=== PATIENT | female | born 1955 | race Caucasian/White ===

== ENCOUNTER 2019-09-25 06:47 | Emergency (ER) | payer OTHER, SELFPAY ==
--- NOTE | ~2019-09-25 | CT_ITS ---
EXAMINATION: CT abdomen pelvis w con DATE: 09/25/2019 07:51 INDICATION: Generalized abdominal pain. TECHNIQUE: Computed tomography (CT) of the abdomen and pelvis was performed with 100 mL Omnipaque 350 intravenous contrast. Automated exposure control and iterative reconstruction technique were employe d. The dose-length product was 1473.36 mGy-cm. COMPARISON: CT abdomen and pelvis 10/16/2017 FINDINGS: The visualized portions of the lung bases demonstrate mild atelectasis. No pleural effusion . The heart size is normal. No pericardial effusion. Calcifications in the liver consistent with old granulomatous disease. There are gallstones in the gallbladder, which is normal in size. The spleen, pancreas, adrenal glands, and kidneys are normal. There is diverticulosis of the colon without eviden ce of diverticulitis. There are no dilated loops of bowel. The appendix is not visualized. There is t race pelvic ascites. A mesenteric node measures 10 x 20 mm. There is mild thoracolumbar spondylosis. IMPRESSION: 1. Cholelithiasis. No evidence of acute cholecystitis. 2. Mildly enlarged mesenteric lymph node, likely reactive. Reviewed, dictated and finalized at location A. . PRICING ANALYST
--- NOTE | 2019-09-25 06:49 | ED.GENADULT ---
HPI - General Adult General Chief complaint: Urogenital-Female Stated complaint: uti Time Seen by Provider: 09/25/19 06:48 Source: patient Mode of arrival: ambulatory Limitations: no limitations History of Present Illness HPI narrative: Patient is a 64-year-old female who presents for evaluation of frequency, dysuria and urgency. Patient states she has had symptoms since Tuesday. She reports nausea, no vomiting. No fever, chills, chest pain or shortness of breath. No lightheadedness or dizziness. Patient reports numerous episodes of watery diarrhea. No blood present in the stool. No mucus. No syncope. No history of ulcer or GI bleed in the past. Patient reports a dull, aching headache. No acute onset of headache or thunderclap sensation. No numbness or weakness. Patient states all her symptoms started after eating at [employer] on Tuesday, patient has continued to have watery diarrhea since that time. Related Data Home Medications Medication Instructions Recorded Confirmed fluticasone propionate INTRANASAL 05/25/19 08/21/19 lisinopril 20 mg PO DAILY 05/25/19 08/21/19 melatonin 1 PO HS 05/25/19 08/21/19 albuterol sulfate 90 mcg/actuation 1 puff INHALATION Q4H PRN 06/11/19 08/21/19 aerosol inhaler ibuprofen 200 mg capsule 200 mg PO Q6H PRN 08/20/19 08/21/19 blood sugar diagnostic #10 each 08/21/19 08/21/19 blood-glucose meter #1 each 08/21/19 08/21/19 insulin aspart U-100 100 unit/mL 4 - 8 unit SUB-Q BID ml 08/21/19 08/21/19 (3 mL) subcutaneous pen insulin detemir U-100 100 unit/mL 26 - 28 unit SUBCUT QPM ml 08/21/19 08/21/19 (3 mL) subcutaneous pen lancets #50 each 08/21/19 08/21/19 pen needle, diabetic 31 gauge x #1,200 each 08/21/19 08/21/19 5/16 Dahiana's Leg Cramps 09/25/19 fluticasone furoate [Arnuity INHALATION 09/25/19 Ellipta] Allergies Allergy/AdvReac Type Severity Reaction Status Date / Time hydrocortisone Allergy Mild TEARS Unverified 09/25/19 07:03 STOMACH UP poison yemi extract Allergy Unknown Unknown Verified 09/25/19 07:03 povidone Allergy Unknown Unknown Verified 09/25/19 07:03 povidone-iodine Allergy Unknown RASH Unverified 09/25/19 07:03 soap Allergy Unknown Unknown Verified 09/25/19 07:03 Sulfa (Sulfonamide Allergy Unknown Unknown Verified 09/25/19 07:03 Antibiotics) sulfanilamide Allergy Unknown Unknown Verified 09/25/19 07:03 talc Allergy Unknown Unknown Verified 09/25/19 07:03 Review of Systems Review of Systems: Narrative: CONSTITUTIONAL: Denies fever, chills, or sweats. EYES: Denies visual changes ENT: Denies congestion, sore throat, or otalgia. CARDIOVASCULAR: Denies chest pain, palpitations, or edema. RESPIRATORY: Denies cough or dyspnea. GASTROINTESTINAL: Reports suprapubic pain, nausea, denies vomiting, reports diarrhea GENITOURINARY: Reports dysuria, urgency and frequency SKIN: Denies rash or itching. MUSCULOSKELETAL: Denies back pain, joint pain, or myalgia. NEUROLOGIC: Reports headache, denies numbness or weakness PSYCHIATRIC: Reports anxiety PMFSH Past Medical History Medical History Asthma Diabetes Hyperlipidemia Hypertension Hypothyroid Surgical History Surgical History History of hand surgery Multiple Family History Family History Father Hypertension Malignant neoplasm of prostate Family history of obesity Family history of cataracts Family history of congestive heart failure Mother Family history of hypothyroidism Family history of heart disease in male family member before age 55 Family history of obesity Family history of lung disease Family history of hearing loss Grandparent Family history of thyroid disease Family history of obesity Cerebrovascular accident Family history of arthritis Family history of congestive heart failure Diabetes mellitu
[2019-09-25 06:57] VITALS: BP 187/88; PULSE 69; RESP 18; TEMP 36.2; O2SAT 97
[2019-09-25 07:18] LABS: Basophils Absolute Auto 0.1 K/mm3 (0.0-0.1); Basophils Percent Auto 0.3 % (0.2-1.2); Eosinophils Absolute Auto 5.7 K/mm3 (0-0.3); Eosinophils Percent Auto 30.3 % (0-4.4); Hemoglobin 12.9 g/dL (12.0-15.0); Immature Granulocyte Absolute 0.22 K/mm3 (0.00-0.031); Immature Granulocyte Percent A 1.2 % (0-0.5); Lymphocytes Absolute Auto 4.06 K/mm3 (0.9-3.2); Lymphocytes Percent Auto 21.8 % (18.3-44.2); Mean Corpuscular HGB Conc 33.1 g/dl (32-36); Mean Corpuscular Hemoglobin 29.4 pg (26-34); Mean Corpuscular Volume 88.8 fl (80-100); Mean Platelet Volume 12.7 fl (7.4-10.4); Monocytes Absolute Auto 0.6 K/mm3 (0.1-0.6); Monocytes Percent Auto 3.2 % (2.6-8.5); Neutrophils Absolute Auto 8.1 K/mm3 (1.3-6.7); Neutrophils Percent Auto 43.2 % (45.5-73.1); Platelet Count Result 216 k/mm3 (150-375); Red Blood Count 4.39 M/mm3 (4.2-5.4); Red Cell Distribution Width 13.3 % (11.5-14.5); White Blood Count 18.7 K/mm3 (4.5-10.0)
[2019-09-25 07:26] LABS: Add Urine Microscopic? YES; Appearance Urine Clear (Clear); Bacteria Urine Trace /hpf; Bilirubin Urine Negative (Negative); Blood Urine Negative (Negative); Color Urine Colorless (Yellow); Glucose Urine UA Negative (Negative); Ketones Urine Negative (Negative); Leukocyte Esterase Ur 1+ LEU/UL (Negative); Mucus Urine Rare /lpf; Nitrate Urine Negative (Negative); Protein Urine Negative (Negative); RBC Urine 0-2 /hpf (0-2); Squamous Epithelial Cell Urine Occasional /hpf (Few); Urobilinogen Urine Negative mg/dL (<2.0); WBC Urine 0-3 /hpf
[2019-09-25 07:29] LABS: Alanine Aminotransferase 15 U/L (4-35); Albumin Level 3.8 g/dL (3.5-5.1); Alkaline Phosphatase 77 U/L (38-126); Aspartate Amino Transferase 23 U/L (14-36); Bilirubin,Total 0.4 mg/dL (0.2-1.3); Blood Urea Nitrogen 12 mg/dL (7-17); Calcium 8.5 mg/dL (8.4-10.2); Carbon Dioxide 33 mmol/L (22-30); Chloride 97 mmol/L (98-107); Estimated Glomerular Filt Rate 41; Glucose 109 mg/dL (65-105); Lipase 41 U/L (23-300); Potassium 3.4 mmol/L (3.4-5.0); Sodium 136 mmol/L (137-145)
[2019-09-25 07:29] LABS: Specific Grav Ur 1.004 (1.001-1.035)
[2019-09-25] MEDS: SODIUM CHLORIDE 0.9% IV 1,000 ML 999 ML IV CONT (07:29)
[2019-09-25] MEDS: MORPHINE SULFATE 4 MG/ML INJ 2 MG IV PUSH (07:30)
[2019-09-25] MEDS: ONDANSETRON INJ 4 MG/2 ML VIAL IV PUSH (07:30)
[2019-09-25 09:20] VITALS: BP 152/73; PULSE 70; RESP 16; O2SAT 99
== END 2019-09-25 09:21 | disposition home or self-care (01) ==
PROVIDERS: Emergency Provider Emergency Medicine; PCP Family Medicine
DX: K52.9 Noninfective gastroenteritis and colitis, unspecified (principal); J45.909 Unspecified asthma, uncomplicated; E11.9 Type 2 diabetes mellitus without complications; Z79.4 Long term (current) use of insulin; E78.5 Hyperlipidemia, unspecified; I10 Essential (primary) hypertension; E03.9 Hypothyroidism, unspecified; K80.20 Calculus of gallbladder without cholecystitis without obstruction
CPT/HCPCS: 36415; 74177; 80053; 81001; 83690; 85025; 96361; 96374; 96375; 99284; J0131; J2270; J2405; J7030; Q9967

== ENCOUNTER 2020-07-12 11:11 | Emergency (ER) | payer OTHER, SELFPAY ==
--- NOTE | ~2020-07-12 | XR_ITS ---
EXAMINATION: XR chest 2V DATE: 07/12/2020 11:44 INDICATION: Cough, shortness of breath, and chest pain. TECHNIQUE: Frontal and lateral views of the chest were obtained. COMPARISON: Chest 2 views 01/22/2019 FINDINGS: There are airspace opacities at right lung base. There is a small right pleural effusion. A calcified left lung nodule is consistent with old granulomatous disease. No pneumothorax. The heart size is normal. Cholelithiasis is noted. IMPRESSION: 1. Airspace opacities at right lung base, consistent with pneumonia. 2. Small right pleural effusion. Reviewed, dictated and finalized at location A. CTOR AUTOMOTIVE
[2020-07-12 11:17] VITALS: BP 148/58; PULSE 89; RESP 28; TEMP 36.8; O2SAT 97
--- NOTE | 2020-07-12 11:51 | ED.GENADULT ---
HPI - General Adult General Chief complaint: Skin/Abscess/Foreign Body Stated complaint: SICK Time Seen by Provider: 07/12/20 11:49 Source: patient and RN notes reviewed Mode of arrival: ambulatory Limitations: no limitations History of Present Illness HPI narrative: 64-year-old female presents with complains of upper respiratory symptoms, facial rash, fever, fatigue, dry cough, and chest wall tenderness for the past 3 days. Mar[place]osa reports chest pain is under RT breast. Ibuprofen without relief last this morning 08:45am. Intermittent dry cough without chest congestion. No rhinorrhea or nasal congestion. Denies sore throat. No drooling, neck or throat swelling. No cardiac chest pain, wheezing, or shortness of breath. Exacerbation factor consist of coughing. Denies nausea, vomiting, and abdominal pain. Tolerating liquids well. Remains active. The patient reports she have not been diagnosed with COVID-19. Patient reports she was tested for COVID-19 on 07/10/20 after having sickness for 1 day with a NEGATIVE result. The patient reports she is not waiting for the results of a COVID-19 lab test. The patient reports she do not have fever, chills, weakness, or fatigue. The patient reports she do not have a worsening cough or shortness of breath. Denies chest pain. The patient reports she do not have any rhinorrhea, loss of taste, and diarrhea. Denies recent traveling. Denies concerns for COVID-19 or exposures been home with limited outdoor exposure except for essential household needs, work, and return home. At this time, patient is not suspected of having COVID-19. Some parts of this dictation were generated by voice recognition software and may contain typographical and/or grammatical inaccuracies. Related Data Home Medications Medication Instructions Recorded Confirmed fluticasone propionate 1 spray INTRANASAL DAILY 05/25/19 07/10/20 melatonin 10 mg PO HS 05/25/19 07/12/20 albuterol sulfate 90 mcg/actuation 1 puff INHALATION Q4H PRN 06/11/19 07/12/20 aerosol inhaler ibuprofen 200 mg capsule 200 mg PO Q6H PRN 08/20/19 07/12/20 blood-glucose meter #1 each 08/21/19 07/10/20 Dahiana's Leg Cramps 09/25/19 07/10/20 fluticasone furoate [Arnuity 1 inh INHALATION DAILY 09/25/19 07/10/20 Ellipta] aspirin 81 mg tablet,delayed 81 mg PO DAILY 04/14/20 07/12/20 release aspirin-caffeine 500 mg-32.5 mg 1 tablet PO ONCE 04/14/20 07/10/20 tablet Allergies Allergy/AdvReac Type Severity Reaction Status Date / Time hydrocortisone Allergy Mild TEARS Verified 07/12/20 11:26 STOMACH UP poison yemi extract Allergy Unknown Unknown Verified 07/12/20 11:26 povidone Allergy Unknown Unknown Verified 07/12/20 11:26 povidone-iodine Allergy Unknown RASH Verified 07/12/20 11:26 soap Allergy Unknown Unknown Verified 07/12/20 11:26 Sulfa (Sulfonamide Allergy Unknown Unknown Verified 07/12/20 11:26 Antibiotics) sulfanilamide Allergy Unknown Unknown Verified 07/12/20 11:26 talc Allergy Unknown Unknown Verified 07/12/20 11:26 lactose AdvReac Mild Unknown Verified 07/12/20 11:26 Review of Systems Review of Systems: Narrative: CONSTITUTIONAL: Denies chills, sweats. Complains of fever, fatigue. EYES: Denies visual changes, redness, discharge. ENT: Denies rhinorrhea, congestion sore throat, otalgia. CARDIOVASCULAR: Denies chest pain, palpitations, edema. RESPIRATORY: Denies dyspnea, wheezing. Complains of dry cough. GASTROINTESTINAL: Denies abdominal pain, nausea, vomiting, diarrhea. SKIN: Denies itching. Complains of rash to face. MUSCULOSKELETAL: Denies acute back pain, joint pain, myalgia. Complains of RT chest wall tenderness. NEUROLOGIC: Denies numbness or focal weakness. PSYCHIATRIC: Denies anxiety or depression. All systems reviewed & are unremarkable except as noted in HPI and below. [facility] Past Medical History Medical History Asthma Diabetes GERD wit
== END 2020-07-12 12:25 | disposition home or self-care (01) ==
PROVIDERS: Emergency Provider Nurse Practitioner Family; PCP Family Medicine
DX: J18.9 Pneumonia, unspecified organism (principal); Z20.828 Contact with and (suspected) exposure to other viral communicable diseases; J45.909 Unspecified asthma, uncomplicated; E11.9 Type 2 diabetes mellitus without complications; K21.9 Gastro-esophageal reflux disease without esophagitis; E78.5 Hyperlipidemia, unspecified; I10 Essential (primary) hypertension; E03.9 Hypothyroidism, unspecified
CPT/HCPCS: 71046; 99213; G0463

== ENCOUNTER 2020-07-14 07:04 | Outpatient (NON) | payer OTHER, SELFPAY ==
[2020-07-14 22:01] LABS: SARS-CoV-2 RNA PCR Negative
== END 2020-07-14 07:05 ==
LOC: ANHCOVIDDT 07:08
PROVIDERS: PCP Family Medicine; Visit Provider Nurse Practitioner Family
DX: J18.9 Pneumonia, unspecified organism (principal); Z20.828 Contact with and (suspected) exposure to other viral communicable diseases
CPT/HCPCS: 87635; C9803; U0003

== ENCOUNTER 2020-07-18 17:39 | Emergency (ER) | payer OTHER, SELFPAY ==
[2020-07-18] VITALS (25 sets, daily range): BP systolic 159–186; BP diastolic 71–92; PULSE 92–103; RESP 14–35; TEMP 37.6; O2SAT 99
--- NOTE | ~2020-07-18 | XR_ITS ---
XR chest 1V 07/18/2020 18:26 Indication: Shortness of breath. Pneumonia. Procedure: AP view of the chest Comparison: Comparison to multiple prior studies sequentially, with oldest reviewed study dated 07/2018. Findings: There is been progression of airspace disease in the right mid and lower lung, consistent w ith pneumonia. There is right pleural effusion. Cardiomegaly. Left lung is clear. No acute osseous ab normality. Impression: 1: Progression of pneumonia involving the right mid and lower lung with adjacent pleural effusion. Reviewed, dictated and finalized at location A. SPORTATION BROKER Impression: 1: Progression of pneumonia involving the right mid and lower lung with adjacen t pleural effusion.
--- NOTE | ~2020-07-18 | CT_ITS ---
EXAMINATION: CT abdomen pelvis wo con DATE: 07/18/2020 18:16 INDICATION: Abdominal pain TECHNIQUE: Computed tomography (CT) of the abdomen and pelvis was performed without intravenous contr ast. The dose-length product was 1429.06 mGy-cm. Automated exposure control and iterative reconstruct ion technique were employed. COMPARISON: CT dated 09/25/2019 and chest x-ray dated 07/12/2020 FINDINGS: There are is right middle and lower lobe airspace consolidation with loculated right pleura l effusion.. Heart size is normal. There are gallstones. The liver, spleen, pancreas, adrenal glands and left kidney are unremarkable. T here is a 1.5 cm hyperdense lesion of the right kidney measuring 64 Hounsfield units, likely hyperden se cyst. Recommend correlation with ultrasound for further assessment. Nonobstructive bowel gas patte rn. Colonic diverticulosis without evidence for diverticulitis. There is an accessory splenule. No fr ee air or free fluid. Mild thoracolumbar spondylosis. IMPRESSION: 1. Right middle and lower lobe airspace consolidation, consistent with pneumonia. 2: Loculated right pleural effusion. 3: Cholelithiasis. No secondary findings to suggest acute cholecystitis. 4: Right renal hyperdense mass measuring 1.5 cm, likely benign hyperdense cyst, although ultrasound r ecommended for further assessment. Reviewed, dictated and finalized at location A. TABLE GROWER IMPRESSION: 1. Right middle and lower lobe airspace consolidation, consistent with pneumoni a. 2: Loculated right pleural effusion. 3: Cholelithiasis. No secondary findings to suggest acute cholecystitis. 4: Right renal hyperdense mass measuring 1.5 cm, likely benign hyperdense cyst, although ultrasound recommended for further assessment.
--- NOTE | 2020-07-18 18:02 | ED.NAVMDI ---
HPI - Nausea/Vomiting/Diarrhea General Chief complaint: Shortness of Breath/Dyspnea Stated complaint: recent pneumonia Time Seen by Provider: 07/18/20 17:50 History of Present Illness HPI Narrative: 64 yo female w/ h/o DM, htn, hypothyroidism, asthma presents to the ED for multiple complaints. She first started to feel sick more than 1 week ago. She is not able to tell me what symptoms she was having at that time. She had a telavisit with her PCP on 07/10. At that time she was diagnosed with Flu-like symptoms. She was told to get a COvid test and treated for a yeast infection. The covid test was negative. She then went to urgent care on 07/12 and had an x-ray showing pneumonia and once again tested negative for COVID. She was started on Augmentin and then started having nausea, vomiting, and diarrhea. She does report intermittent SOB. Related Data Home Medications Medication Instructions Recorded Confirmed fluticasone propionate 1 spray INTRANASAL DAILY 05/25/19 07/10/20 melatonin 10 mg PO HS 05/25/19 07/12/20 albuterol sulfate 90 mcg/actuation 1 puff INHALATION Q4H PRN 06/11/19 07/12/20 aerosol inhaler ibuprofen 200 mg capsule 200 mg PO Q6H PRN 08/20/19 07/12/20 blood-glucose meter #1 each 08/21/19 07/10/20 Dahiana's Leg Cramps 09/25/19 07/10/20 fluticasone furoate [Arnuity 1 inh INHALATION DAILY 09/25/19 07/10/20 Ellipta] aspirin 81 mg tablet,delayed 81 mg PO DAILY 04/14/20 07/12/20 release aspirin-caffeine 500 mg-32.5 mg 1 tablet PO ONCE 04/14/20 07/10/20 tablet Allergies Allergy/AdvReac Type Severity Reaction Status Date / Time hydrocortisone Allergy Mild TEARS Verified 07/12/20 11:26 STOMACH UP poison yemi extract Allergy Unknown Unknown Verified 07/12/20 11:26 povidone Allergy Unknown Unknown Verified 07/12/20 11:26 povidone-iodine Allergy Unknown RASH Verified 07/12/20 11:26 soap Allergy Unknown Unknown Verified 07/12/20 11:26 Sulfa (Sulfonamide Allergy Unknown Unknown Verified 12/19/20 11:26 Antibiotics) sulfanilamide Allergy Unknown Unknown Verified 07/12/20 11:26 talc Allergy Unknown Unknown Verified 07/12/20 11:26 lactose AdvReac Mild Unknown Verified 07/12/20 11:26 Review of Systems Review of Systems: All systems reviewed & are unremarkable except as noted in HPI and below Constitutional: Constitutional: Reports fatigue, Reports fever(s) and Reports weakness ENT: Denies sore throat Cardiovascular: Cardiovascular: Denies chest pain Respiratory: Respiratory: Reports cough and Reports dyspnea Gastrointestinal: Gastrointestinal: Reports abdominal pain, Reports diarrhea, Reports nausea and Reports vomiting Genitourinary: Genitourinary: Denies dysuria Musculoskeletal: Musculoskeletal: Reports back pain Neurologic: Denies confusion and Reports weakness PMFSH Past Medical History Medical History Asthma Diabetes GERD without esophagitis Hyperlipidemia Hypertension Hypothyroid Surgical History Surgical History History of hand surgery Multiple Family History Family History Father Hypertension Malignant neoplasm of prostate Family history of obesity Family history of cataracts Family history of congestive heart failure Mother Family history of hypothyroidism Family history of heart disease in male family member before age 55 Family history of obesity Family history of lung disease Family history of hearing loss Grandparent Family history of thyroid disease Family history of obesity Cerebrovascular accident Family history of arthritis Family history of congestive heart failure Diabetes mellitus Sibling Family history of malignant neoplasm of brain Family history of malignant neoplasm of kidney Family history of heart disease in male family member before age 55 Other Family history of car
[2020-07-18] MEDS: ONDANSETRON INJ 4 MG/2 ML VIAL IV PUSH (18:30)
[2020-07-18] MEDS: SODIUM CHLORIDE 0.9% IV 1,000 ML 999 ML IV CONT (18:30)
[2020-07-18 18:44] LABS: Hematocrit 33.3 % (37.0-47.0); Hemoglobin 11.6 g/dL (12.0-15.0); Mean Corpuscular HGB Conc 34.8 g/dl (32-36); Mean Corpuscular Hemoglobin 30.2 pg (26-34); Mean Corpuscular Volume 86.7 fl (80-100); Mean Platelet Volume 10.8 fl (7.4-10.4); Platelet Count Result 421 k/mm3 (150-375); Red Blood Count 3.84 M/mm3 (4.2-5.4); Red Cell Distribution Width 13.9 % (11.5-14.5); White Blood Count 21.7 K/mm3 (4.5-10.0)
[2020-07-18 18:53] LABS: INR 1.3; Prothrombin Time 17.1 Seconds (11.1-14.7)
[2020-07-18 18:56] LABS: Alanine Aminotransferase 29 U/L (4-35); Albumin Level 3.5 g/dL (3.5-5.1); Alkaline Phosphatase 270 U/L (38-126); Anion Gap 11 mmol/L (8-16); Aspartate Amino Transferase 44 U/L (14-36); Band Neutrophils Percent 5 % (0-6); Blood Urea Nitrogen 22 mg/dL (7-17); Calcium 9.7 mg/dL (8.4-10.2); Carbon Dioxide 31 mmol/L (22-30); Chloride 93 mmol/L (98-107); Estimated CRCL calculation 41 ml/min; Estimated Glomerular Filt Rate 38; Glucose 129 mg/dL (65-105); Lactic Acid Reflex 1.2 mmol/L (0.7-2.1); Lipase 46 U/L (23-300); Lymphocytes Absolute Manual 1.73 K/mm3 (1.1-4.5); Lymphocytes Percent Manual 8 % (18-44); Metamyelocytes Percent 3 %; Monocytes Absolute Manual 0.65 K/mm3 (0.1-0.90); Monocytes Percent Manual 3 % (3-9); Myelocytes Percent 1 %; Neutrophils Absolute Manual 18.44 K/mm3 (1.7-7.2); Neutrophils Percent Manual 80 % (46-73); Potassium 2.9 mmol/L (3.4-5.0); Sodium 135 mmol/L (137-145); Total Cells Counted 100
[2020-07-18 18:57] LABS: Platelet Estimate Increased (Adequate); Target Cells 1+ (NORMAL)
--- NOTE | 2020-07-18 19:50 | PC.NURSE ---
keep pt NPO VO Dr. Lyon
[2020-07-18] MEDS: ERTAPENEM 1 GM/NS 50 ML 1 GM/50 ML BAG IVPB (20:22)
--- NOTE | 2020-07-18 21:35 | PC.NURSE ---
pt incont. of small amount of greenish soft stool. Pt. to BR to void, after clean gown given; pt. given instructs and materials for clean catch urine, also given depends.
[2020-07-18 21:53] LABS: Add Urine Microscopic? YES; Appearance Urine Clear (Clear); Bilirubin Urine Negative (Negative); Blood Urine 1+ (Negative); Color Urine Yellow (Yellow); Glucose Urine UA Negative (Negative); Ketones Urine 1+ mg/dL (Negative); Leukocyte Esterase Ur Negative LEU/UL (Negative); Mucus Urine Rare /lpf; Nitrate Urine Negative (Negative); Protein Urine 1+ mg/dL (Negative); Specific Grav Ur 1.014 (1.001-1.035); Squamous Epithelial Cell Urine Few /hpf (Few); Urobilinogen Urine Negative mg/dL (<2.0); WBC Urine 0-3 /hpf
--- NOTE | 2020-07-18 22:37 | PC.NURSE ---
Pt. LAXMI to [facility] 286, call [phone] for report and when ptLidia sun.
--- NOTE | 2020-07-18 23:11 | PC.NURSE ---
CALLED [facility] TO TRANSPORT PATIENT TO [facility], TRIP #[id number]....ETA [phone]
[2020-07-19] VITALS (31 sets, daily range): BP systolic 158–182; BP diastolic 57–85; PULSE 89–99; RESP 12–34
--- NOTE | 2020-07-19 01:03 | PC.NURSE ---
CALLED [facility] FOR STATUS ON ETA ... [phone]
--- NOTE | 2020-07-19 03:00 | PC.NURSE ---
Called [facility] for status on ETA...04:00
--- NOTE | 2020-07-19 04:04 | PC.NURSE ---
Called Kristen for ETA status...06:30...call volume exceeding availability
== END 2020-07-19 06:48 | disposition short-term general hospital (02) ==
PROVIDERS: Emergency Provider Emergency Medicine; PCP Family Medicine
DX: J86.9 Pyothorax without fistula (principal); J18.9 Pneumonia, unspecified organism; J45.909 Unspecified asthma, uncomplicated; E11.9 Type 2 diabetes mellitus without complications; K21.9 Gastro-esophageal reflux disease without esophagitis; E78.5 Hyperlipidemia, unspecified; I10 Essential (primary) hypertension; E03.9 Hypothyroidism, unspecified; Z79.82 Long term (current) use of aspirin; Z87.891 Personal history of nicotine dependence; K80.20 Calculus of gallbladder without cholecystitis without obstruction; N28.89 Other specified disorders of kidney and ureter
CPT/HCPCS: 36415; 71045; 74176; 80053; 81001; 83605; 83690; 85025; 85610; 87040; 96361; 96365; 96366; 96368; 96375; 99285; J1335; J2405; J3480; J7030

== ENCOUNTER 2020-10-01 23:09 | Emergency (ER) | payer OTHER, SELFPAY ==
[2020-10-01 23:19] VITALS: BP 163/78; PULSE 75; RESP 18; TEMP 37.1; O2SAT 98
--- NOTE | 2020-10-01 23:21 | ED.ALLEREA ---
HPI - Allergic Reaction General Chief complaint: Allergic Reaction Stated complaint: facial swelling Time Seen by Provider: 10/01/20 23:21 History of Present Illness HPI narrative: 5 yo female w/ h/o htn presents to the ED for lip swelling. Earlier this evening she noted what looked like a zit at the right corner of her mouth. She squeezed it and it drained a small amount of pus. Shortly after that she noted swelling to that side of her lower lip. That then spread to the other side and into the cheek/jaw. She noted that it was warm and sore. The warmth and soreness have decreased, but the swelling is not improving. She has not this happen before. No fever, chills, tongue swelling, throat swelling. She does take lisinopril. Related Data Home Medications Medication Instructions Recorded Confirmed fluticasone propionate 1 spray INTRANASAL DAILY 05/25/19 09/11/20 melatonin 10 mg PO HS 05/25/19 09/11/20 albuterol sulfate 90 mcg/actuation 1 puff INHALATION Q4H PRN 06/11/19 09/11/20 aerosol inhaler blood-glucose meter #1 each 08/21/19 09/11/20 Dahiana's Leg Cramps 09/25/19 09/11/20 fluticasone furoate [Arnuity 1 inh INHALATION DAILY 09/25/19 09/11/20 Ellipta] aspirin 81 mg tablet,delayed 81 mg PO DAILY 04/14/20 09/11/20 release aspirin-caffeine 500 mg-32.5 mg 1 tablet PO ONCE 04/14/20 09/11/20 tablet Allergies Allergy/AdvReac Type Severity Reaction Status Date / Time hydrocortisone Allergy Mild TEARS Verified 10/01/20 23:25 STOMACH UP poison yemi extract Allergy Unknown Unknown Verified 10/01/20 23:25 povidone Allergy Unknown Unknown Verified 10/01/20 23:25 povidone-iodine Allergy Unknown RASH Verified 10/01/20 23:25 soap Allergy Unknown Unknown Verified 10/01/20 23:25 Sulfa (Sulfonamide Allergy Unknown Unknown Verified 10/01/20 23:25 Antibiotics) sulfanilamide Allergy Unknown Unknown Verified 10/01/20 23:25 talc Allergy Unknown Unknown Verified 10/01/20 23:25 fluconazole [From Diflucan] Allergy Rash Verified 10/01/20 23:25 [facility] AdvReac Severe leg cramps Verified 10/01/20 23:25 lactose AdvReac Mild Unknown Verified 10/01/20 23:25 Review of Systems Review of Systems: All systems reviewed & are unremarkable except as noted in HPI and below Cardiovascular: Cardiovascular: Denies chest pain Respiratory: Respiratory: Denies dyspnea Gastrointestinal: Gastrointestinal: Denies abdominal pain and Denies nausea PMFSH Past Medical History Medical History Asthma De Quervain's tenosynovitis, bilateral Dyslipidemia Environmental allergies Essential hypertension Hypothyroidism, unspecified Insomnia Pneumonia 06/2020 Type 2 diabetes mellitus with hyperglycemia Vitamin D deficiency Surgical History Surgical History History of carpal tunnel release of both wrists [id number] History of hand surgery (~1993) b/l - Multiple surgeries 1993, 2003 History of thoracentesis 06/2020 - Right loculated pleural effusion Family History Family History Father Hypertension Malignant neoplasm of prostate Family history of obesity Family history of cataracts Family history of congestive heart failure Mother Family history of hypothyroidism Family history of heart disease in male family member before age 55 Family history of obesity Family history of lung disease Family history of hearing loss Grandparent Family history of thyroid disease Family history of obesity Cerebrovascular accident Family history of arthritis Family history of congestive heart failure Diabetes mellitus Sibling Family history of malignant neoplasm of brain Family history of malignant neoplasm of kidney Family history of heart disease in male family member before age 55 Other Family history of cardiovascular disease Family history of l
[2020-10-02] MEDS: AMOXICILLIN/CLAVULANATE K 875-125 MG TAB 1 TABLET PO (00:28)
[2020-10-02] MEDS: diphenhydrAMINE HCl CAP 25 MG CAPSULE 50 MG PO (00:28)
[2020-10-02] MEDS: diphenhydrAMINE HCl CAP 25 MG CAPSULE (00:29)
[2020-10-02 01:02] VITALS: BP 140/89; PULSE 69; RESP 16; TEMP 36.3; O2SAT 100
== END 2020-10-02 01:03 | disposition home or self-care (01) ==
PROVIDERS: Emergency Provider Emergency Medicine; PCP Family Medicine
DX: L03.211 Cellulitis of face (principal); J45.909 Unspecified asthma, uncomplicated; I10 Essential (primary) hypertension; E78.5 Hyperlipidemia, unspecified; E03.9 Hypothyroidism, unspecified; E11.9 Type 2 diabetes mellitus without complications; E55.9 Vitamin D deficiency, unspecified; Z87.891 Personal history of nicotine dependence
CPT/HCPCS: 99283; A9270

== ENCOUNTER 2020-10-02 10:18 | Emergency (ER) | payer OTHER, SELFPAY ==
[2020-10-02 10:23] VITALS: BP 160/90; PULSE 81; RESP 18; TEMP 37.3; O2SAT 99
[2020-10-02 10:31] LABS: Glucose Point of Care 82 (65-105)
--- NOTE | 2020-10-02 12:16 | ED.GENADULT ---
HPI - General Adult General Chief complaint: Unspecified Stated complaint: facial swelling Time Seen by Provider: 10/02/20 11:59 History of Present Illness HPI narrative: Patient is a 65-year-old female who presents to the ER with lower lip swelling and swelling of her right lower cheek. Symptoms began yesterday. Initially she had a pustule at the corner of her lower lip that she popped and expressed pus out of. She then started developing swelling. She was seen in the ER diagnosed with cellulitis of the face and prescribed antibiotics. They did give her some medications to attempt to reduce the swelling. Patient went home and went to sleep. When she woke up the swelling was worsened. She has not had additional drainage. No fevers or chills or sweats. She did take her home lisinopril this morning but her swelling had worsened before taking lisinopril. No swelling of the tongue. No difficulty breathing or swallowing. Related Data Home Medications Medication Instructions Recorded Confirmed fluticasone propionate 1 spray INTRANASAL DAILY 05/25/19 09/11/20 melatonin 10 mg PO HS 05/25/19 09/11/20 albuterol sulfate 90 mcg/actuation 1 puff INHALATION Q4H PRN 06/11/19 09/11/20 aerosol inhaler blood-glucose meter #1 each 08/21/19 09/11/20 Dahiana's Leg Cramps 09/25/19 09/11/20 fluticasone furoate [Arnuity 1 inh INHALATION DAILY 09/25/19 09/11/20 Ellipta] aspirin 81 mg tablet,delayed 81 mg PO DAILY 04/14/20 09/11/20 release aspirin-caffeine 500 mg-32.5 mg 1 tablet PO ONCE 04/14/20 09/11/20 tablet Allergies Allergy/AdvReac Type Severity Reaction Status Date / Time hydrocortisone Allergy Mild TEARS Verified 10/02/20 11:17 STOMACH UP poison yemi extract Allergy Unknown Unknown Verified 10/02/20 11:17 povidone Allergy Unknown Unknown Verified 10/02/20 11:17 povidone-iodine Allergy Unknown RASH Verified 10/02/20 11:17 soap Allergy Unknown Unknown Verified 10/02/20 11:17 Sulfa (Sulfonamide Allergy Unknown Unknown Verified 10/02/20 11:17 Antibiotics) sulfanilamide Allergy Unknown Unknown Verified 10/02/20 11:17 talc Allergy Unknown Unknown Verified 10/02/20 11:17 fluconazole [From Diflucan] Allergy Rash Verified 10/02/20 11:17 cetirizine [From Zyrtec] AdvReac Severe leg cramps Verified 10/02/20 11:17 lactose AdvReac Mild Unknown Verified 10/02/20 11:17 Review of Systems Constitutional: Constitutional: Denies chills and Denies fever(s) ENT: Reports lip swelling, Denies throat swelling and Denies tongue swelling Respiratory: Respiratory: Denies cough, Denies dyspnea and Denies wheezing PMFSH Past Medical History Medical History Asthma De Quervain's tenosynovitis, bilateral Dyslipidemia Environmental allergies Essential hypertension Hypothyroidism, unspecified Insomnia Pneumonia 06/2020 Type 2 diabetes mellitus with hyperglycemia Vitamin D deficiency Surgical History Surgical History History of carpal tunnel release of both wrists [id number] History of hand surgery (~1993) b/l - Multiple surgeries 1993, 2003 History of thoracentesis 06/2020 - Right loculated pleural effusion Family History Family History Father Hypertension Malignant neoplasm of prostate Family history of obesity Family history of cataracts Family history of congestive heart failure Mother Family history of hypothyroidism Family history of heart disease in male family member before age 55 Family history of obesity Family history of lung disease Family history of hearing loss Grandparent Family history of thyroid disease Family history of obesity Cerebrovascular accident Family history of arthritis Family history of congestive heart failure Diabetes mellitus Sibling Family history of malignant neoplasm of brain Family history of malign
--- NOTE | 2020-10-02 12:30 | PC.NURSE ---
Called to patient room. Per pt feels clammy and dizzy and going to pass out. VS taken BP 104/53, HR 63, SPO2 96%, resp 16. Accucheck taken. Dr. Perry at bedside.
[2020-10-02 12:31] LABS: Glucose Point of Care 97 (65-105)
[2020-10-02 12:32] VITALS: BP 104/53; PULSE 63; RESP 16; O2SAT 96
== END 2020-10-02 13:20 | disposition home or self-care (01) ==
PROVIDERS: Emergency Provider Emergency Medicine; PCP Family Medicine
DX: L03.211 Cellulitis of face (principal); J45.909 Unspecified asthma, uncomplicated; E78.5 Hyperlipidemia, unspecified; I10 Essential (primary) hypertension; E03.9 Hypothyroidism, unspecified; E11.9 Type 2 diabetes mellitus without complications; E55.9 Vitamin D deficiency, unspecified; Z87.891 Personal history of nicotine dependence; Z79.82 Long term (current) use of aspirin; Z79.4 Long term (current) use of insulin
CPT/HCPCS: 82948; 99282

== ENCOUNTER → 2020-10-25 05:24 | Outpatient (CLI) | payer OTHER, SELFPAY ==
[2020-10-25 19:34] LABS: SARS-CoV-2 RNA PCR Negative
== END ==
PROVIDERS: PCP Family Medicine; Visit Provider Internal Medicine Gastroenterology
DX: Z01.812 Encounter for preprocedural laboratory examination (principal); Z20.822 Contact with and (suspected) exposure to COVID-19
CPT/HCPCS: C9803; U0003; U0005

== ENCOUNTER 2020-10-29 01:01 | Day surgery (SDC) | payer OTHER, SELFPAY ==
[2020-10-15 13:45] VITALS: BMI 39.0
[2020-10-29 09:37] VITALS: BP 147/72; PULSE 66; RESP 22; TEMP 37.4; O2SAT 100; BMI 37.2
[2020-10-29 09:52] LABS: Glucose Point of Care 126 (65-105)
[2020-10-29] MEDS: LACTATED RINGERS 1,000 ML 150 ML IV CONT (09:54)
--- NOTE | 2020-10-29 10:20 | PM.HPGS ---
History of Present Illness History of Present Illness Consent: Risks, benefits, and alternatives have been discussed and questions answered. Patient agrees to proceed with procedure. Chief complaint: Neoplasm Screening Narrative: Mariposa Jimenez is a 65 year old female with last colonoscopy more than 10 years ago. Review of Systems Constitutional: Constitutional: Denies headache(s) and Denies weakness Eyes: Eyes: Denies blurry vision ENT: Reports Normal hearing present, Denies headache(s) and Denies neck pain Cardiovascular: Cardiovascular: Denies chest pain and Denies dyspnea Respiratory: Respiratory: Denies dyspnea Gastrointestinal: Gastrointestinal: Reports no additional gastrointestinal complaints Genitourinary: Genitourinary: Denies dysuria Musculoskeletal: Musculoskeletal: Denies neck pain Integumentary/Breasts: Skin/Breast: Denies dry skin Neurologic: Reports Normal hearing present, Denies headache(s) and Denies weakness Psychiatric: Psychiatric: Denies anxiety Endocrine: Endocrine: Denies change in body appearance Hematologic/Lymphatic: Hematologic/Lymphatic: Denies easy bleeding Allergic/Immunologic: Allergic/Immunologic: Denies urticaria PMFSH Past Medical History Medical History Asthma De Quervain's tenosynovitis, bilateral Dyslipidemia Environmental allergies Essential hypertension Hypothyroidism, unspecified Insomnia Pneumonia 06/2020 Type 2 diabetes mellitus with hyperglycemia Vitamin D deficiency Surgical History Surgical History History of carpal tunnel release of both wrists [id number] History of hand surgery (~1993) b/l - Multiple surgeries 1993, 2003 History of thoracentesis 06/2020 - Right loculated pleural effusion Family History Family History Father Hypertension Malignant neoplasm of prostate Family history of obesity Family history of cataracts Family history of congestive heart failure Mother Family history of hypothyroidism Family history of heart disease in male family member before age 55 Family history of obesity Family history of lung disease Family history of hearing loss Grandparent Family history of thyroid disease Family history of obesity Cerebrovascular accident Family history of arthritis Family history of congestive heart failure Diabetes mellitus Sibling Family history of malignant neoplasm of brain Family history of malignant neoplasm of kidney Family history of heart disease in male family member before age 55 Other Family history of cardiovascular disease Family history of lung cancer Family history of malignant neoplasm Social History Social History Years smoked: 2.5 Smoking status: Former smoker Tobacco type: cigarettes Second hand tobacco smoke exposure: No Smoking end date: 06/24/95 Additional smoking assessment comments: smoked [id number] per Mariposa Alcohol intake: current Substance use: never Living arrangements: with family Additional living arrangements comments: spouse Gender identity (if verbalized by the patient): Female Spiritual care concerns: No Meds Home Medications and Allergies Home Medications Medication Instructions Recorded Confirmed Type fluticasone propionate 1 spray INTRANASAL BID 05/25/19 10/15/20 History melatonin 10 mg PO HS 05/25/19 10/15/20 History albuterol sulfate 90 mcg/actuation 1 puff INHALATION Q4H PRN 06/11/19 10/15/20 History aerosol inhaler blood-glucose meter #1 each 08/21/19 09/11/20 History fluticasone furoate [Arnuity 1 inh INHALATION DAILY 09/25/19 10/15/20 History Ellipta] blood sugar diagnostic #400 each 04/07/20 09/11/20 Rx lancets #400 each 04/07/20 09/11/20 Rx pen needle, diabetic 31 gauge x #300 e
--- NOTE | 2020-10-29 10:31 | WPDANESEPPF ---
Anes - Initial Pre Proc Eval Procedure: Operation Date: 10/29/20 10:30 Proposed Procedures p Screening Colonoscopy - Burt Weiner MD Date/Time: 10/29/20 10:31 Surgeon: Burt Weiner MD Pre Op Diagnosis: Neoplasm Screening Patient Data Age: 65 Gender: F Height: 5 ft 3 in Weight: 95.3 kg Last Vital Signs Temp 99.4 F 10/29/20 09:37 Pulse 66 10/29/20 09:37 Resp 22 H 10/29/20 09:37 BP 147/72 H 10/29/20 09:37 Pulse Ox 100 10/29/20 09:37 Allergies Allergy/AdvReac Type Severity Reaction Status Date / Time hydrocortisone Allergy Mild TEARS Verified 10/29/20 09:33 STOMACH UP poison yemi extract Allergy Unknown Unknown Verified 10/29/20 09:33 povidone Allergy Unknown Unknown Verified 10/29/20 09:33 povidone-iodine Allergy Unknown RASH Verified 10/29/20 09:33 soap Allergy Unknown Unknown Verified 10/29/20 09:33 Sulfa (Sulfonamide Allergy Unknown Unknown Verified 10/29/20 09:33 Antibiotics) sulfanilamide Allergy Unknown Unknown Verified 10/29/20 09:33 talc Allergy Unknown Unknown Verified 10/29/20 09:33 fluconazole [From Diflucan] Allergy Rash Verified 10/29/20 09:33 cetirizine [From Zyrtec] AdvReac Severe leg cramps Verified 10/29/20 09:33 lactose AdvReac Mild Unknown Verified 10/29/20 09:33 Home Medications Medication Instructions Recorded Confirmed Type fluticasone propionate 1 spray INTRANASAL BID 05/25/19 10/15/20 History melatonin 10 mg PO HS 05/25/19 10/15/20 History albuterol sulfate 90 mcg/actuation 1 puff INHALATION Q4H PRN 06/11/19 10/15/20 History aerosol inhaler blood-glucose meter #1 each 08/21/19 09/11/20 History fluticasone furoate [Arnuity 1 inh INHALATION DAILY 09/25/19 10/15/20 History Ellipta] blood sugar diagnostic #400 each 04/07/20 09/11/20 Rx lancets #400 each 04/07/20 09/11/20 Rx pen needle, diabetic 31 gauge x #300 each 04/07/20 09/11/20 Rx 5/16 aspirin 81 mg tablet,delayed 81 mg PO DAILY 04/14/20 10/15/20 History release aspirin-caffeine 500 mg-32.5 mg 1 tablet PO DAILY PRN 04/14/20 10/15/20 History tablet insulin aspart U-100 100 unit/mL 4 - 6 unit SUB-Q BID #15 ml 05/02/20 10/15/20 Rx (3 mL) subcutaneous pen levothyroxine 100 mcg tablet 100 mcg PO QAM 90 Days #90 tablet 05/21/20 10/15/20 Rx magnesium oxide 400 mg (241.3 mg 400 mg PO BID #180 tablet 08/15/20 10/15/20 Rx magnesium) tablet carvedilol 3.125 mg tablet 3.125 mg PO Q12H #180 tablet 09/11/20 10/15/20 Rx furosemide 20 mg tablet 10 mg PO DAILY #90 tablet 09/11/20 10/15/20 Rx lisinopril 40 mg tablet 40 mg PO DAILY #90 tablet 09/11/20 10/15/20 Rx metformin 500 mg tablet,extended 500 mg PO BID #90 tablet 09/22/20 10/15/20 Rx release 24 hr sodium,potassium,mag sulfates 17.5 See Rx Instructions PO .COMPLEX 09/25/20 Rx gram-3.13 gram-1.6 gram oral soln #354 ml insulin detemir U-100 24 unit SUBCUT HS 10/15/20 10/15/20 History simvastatin 20 mg PO HS 10/15/20 10/15/20 History tobramycin-dexamethasone [TobraDex] 1 drop RIGHT EYE 6XD PRN 10/15/20 10/15/20 History Laboratory Tests 10/29/20 09:50 POC Capillary Glucose 126 mg/dl H mg/dl (65-105) Patient hx anesthesia problems: none Family hx anesthesia problems: none PMFSH Past Medical History Medical History (Updated 10/29/20 @ 10:20 by Burt Weiner MD) Asthma Colon cancer screening De Quervain's tenosynovitis, bilateral Dyslipidemia Environmental allergies Essential hypertension Hypothyroidism, unspecified Insomnia Pneumonia 06/2020 Type 2 diabetes mellitus with hyperglycemia Vitamin D deficiency Surgical History Surgical History History of carpal tunnel release of both wrists [id number] History of hand surgery (~1993) b/l - Multiple surgeries 1993, 2003 History of thoracentesis 06/2020 - Right loculated pleural effusion Family History Family History (Reviewed 09/11/20 @ 13:20 by Anjel Paige
[2020-10-29 10:48] VITALS: BP 111/41; PULSE 63; RESP 21; O2SAT 100
[2020-10-29 10:58] VITALS: BP 129/49; PULSE 63; RESP 17; O2SAT 100
[2020-10-29 11:01] LABS: Glucose Point of Care 117 (65-105)
[2020-10-29 11:08] VITALS: BP 141/52; PULSE 62; RESP 17; O2SAT 100
== END 2020-10-29 11:20 | disposition home or self-care (01) ==
PROVIDERS: PCP Family Medicine; Visit Provider Internal Medicine Gastroenterology
PROC: 0DJD8ZZ Inspection of Lower Intestinal Tract, Via Natural or Artificial Opening Endoscopic (ICD-10-PCS; CPT 45378; principal; 2020-10-29 10:30)
DX: Z12.11 Encounter for screening for malignant neoplasm of colon (principal); K57.30 Diverticulosis of large intestine without perforation or abscess without bleeding; K64.8 Other hemorrhoids; I10 Essential (primary) hypertension; E11.9 Type 2 diabetes mellitus without complications; E78.5 Hyperlipidemia, unspecified; J45.909 Unspecified asthma, uncomplicated; E03.9 Hypothyroidism, unspecified; E55.9 Vitamin D deficiency, unspecified; Z87.891 Personal history of nicotine dependence; E66.9 Obesity, unspecified; Z68.37 Body mass index [BMI] 37.0-37.9, adult; Z79.51 Long term (current) use of inhaled steroids; Z79.82 Long term (current) use of aspirin; Z79.4 Long term (current) use of insulin; Z79.84 Long term (current) use of oral hypoglycemic drugs
CPT/HCPCS: G0121; J2704; J7120

== ENCOUNTER 2020-12-02 14:29 | Outpatient (CLI) | payer OTHER, SELFPAY ==
--- NOTE | ~2020-12-02 | DEXA_ITS ---
Bone Density Report Name: Mariposa Jimenez Age: 65 Sex: Female Ethnicity: White Date of : 1955 Indication: postmenopausal; parental hip fracture; height loss; asthma or emphysema; Referring Provider: Anjel Knapp Study: Bone densitometry was performed. Exam Date: December 02, 2020 Accession number: [id number] Bone Density: Region BMD T-score Z-score Classification AP Spine (L1-L4) 1.634 5.3 7.2 Normal Femoral Neck (Left) 0.799 -0.5 1.1 Normal Total Hip (Left) 1.059 1.0 2.2 Normal Total Hip Bilateral Avg 1.073 1.1 2.4 Normal Femoral Neck (Right) 0.803 -0.4 1.2 Normal Total Hip (Right) 1.085 1.2 2.5 Normal World Health Organization criteria for BMD impression classify patients as: Normal (T-score at or above -1.0), Osteopenia (T-score between -1.0 and -2.5), or Osteoporosis (T-score at or below -2.5). 10-year Fracture Risk: FRAX not reported because: All T-scores for Spine Total, Hip Total, Femoral Neck at or above -1.0 Previous Exams: Region Exam Age BMD T-score BMD Change BMD Change Date g/cm2 vs Baseline vs Previous AP Spine(L1-L4) 12/02/2020 65 1.634 5.3 0.048(3.0%)# 0.048(3.0%)# 11/25/2017 62 1.586 4.9 Total Hip(Left) 12/02/2020 65 1.059 1.0 -0.152(-12.6%) -0.152(-12.6%) 11/25/2017 62 1.211 2.2 Total Hip(Right) 12/02/2020 65 1.085 1.2 -0.099(-8.4%)# -0.099(-8.4%)# 11/25/2017 62 1.183 2.0 *Denotes significance at 95% confidence level, LSC for AP Spine = 0.022 g/cm2, LSC for Total Hip = 0.027 g/cm2 Clinical Information Provided by Patient: Parent has had a hip fracture Has used the following medications: Vitamin D Has the following medical conditions: Asthma or Emphysema Patient maximum height was 64 Menopause Age: 50 No regular weight bearing exercise Drinks caffeinated beverages Onset of menses at age 12 Number of children 0 Impression: The patient has normal bone mass. The patient has risk factors, including: parental hip fracture. No significant bone loss was observed. Discussion: BONE DENSITY IS ABOVE THE MINIMUM DESIRABLE LEVEL AT ALL SKELETAL SITES TESTED. This patient?s bone mineral density is above the minimum desirable level (T-score -1.0 or better) at all sites measured. The patient should follow a healthful lifestyle (good nutrition with adequate calcium and vitamin D, and appropriate weight-bearing exercise). Follow-Up: Consider repeating this study in 5 years or sooner if there i
--- NOTE | ~2020-12-02 | MM_ITS ---
EXAMINATION: MM screening [facility] BI w domenico HISTORY: Screening mammogram TECHNIQUE: Craniocaudal and mediolateral oblique 3-D tomosynthesis images were obtained and synthetic 2-D images were generated. CAD analysis was submitted and interpreted. COMPARISON: 11/25/2017, 06/20/2015 BREAST PARENCHYMAL COMPOSITION: There are scattered areas of fibroglandular density. FINDINGS: Scattered benign-appearing calcifications are present. There is no evidence of suspicious m ass, calcification, or architectural distortion to suggest malignancy in either breast. There has bee n no suspicious interval change. IMPRESSION: 1. No mammographic evidence of malignancy. 2. Recommend routine screening mammography in one year. BI-RADS Category 2: Benign finding(s). Reviewed, dictated and finalized at location A.
== END 2020-12-02 14:30 | disposition home or self-care (01) ==
LOC: ANHIMG 14:33
PROVIDERS: PCP Family Medicine; Visit Provider Family Medicine
DX: Z12.31 Encounter for screening mammogram for malignant neoplasm of breast (principal); Z78.0 Asymptomatic menopausal state
CPT/HCPCS: 77063; 77067; 77080

== ENCOUNTER 2021-08-11 14:29 | Outpatient (CLI) | payer MEDICARE, SELFPAY ==
--- NOTE | ~2021-08-11 | XR_ITS ---
XR sinus min 3V DATE: 08/11/2021 15:12 INDICATION: Chronic cough, congestion, left worse than right TECHNIQUE: Coronal, pierson, lateral and submental vertical views COMPARISON: 01/22/2019 CT brain FINDINGS: The paranasal sinuses and mastoid air cells appear normally developed and aerated. Normal s marion turcica. No skull fracture or bone destruction is evident. IMPRESSION: Negative Reviewed, dictated and finalized at location A. 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
== END 2021-08-11 14:30 | disposition home or self-care (01) ==
LOC: ANHIMG 14:35
PROVIDERS: PCP Family Medicine; Visit Provider Internal Medicine Pulmonary Disease
DX: R06.3 Periodic breathing (principal); E66.01 Morbid (severe) obesity due to excess calories; K80.20 Calculus of gallbladder without cholecystitis without obstruction; R91.1 Solitary pulmonary nodule; J82.89 Other pulmonary eosinophilia, not elsewhere classified; E66.3 Overweight; J30.1 Allergic rhinitis due to pollen; R06.02 Shortness of breath
CPT/HCPCS: 70220

== ENCOUNTER 2021-10-29 22:27 | Emergency (ER) | payer MEDICARE, SELFPAY ==
--- NOTE | ~2021-10-29 | CT_ITS ---
EXAMINATION: CT abdomen pelvis wo con DATE: 10/30/2021 00:35 INDICATION: Left lower quadrant abdominal pain. TECHNIQUE: Computed tomography (CT) of the abdomen and pelvis was performed without intravenous contr ast. Automated exposure control and iterative reconstruction technique were employed. The dose-length product was 1456.47 mGy-cm. COMPARISON: CT abdomen and pelvis 07/18/2020 FINDINGS: The visualized portions of the lung bases demonstrate mild atelectasis. No pleural effusion . The heart size is normal. No pericardial effusion. Calcifications in the liver consistent with old granulomatous disease. There are gallstones in the gallbladder, which is normal in size. The spleen, pancreas, adrenal glands, and kidneys are normal. There are scattered diverticula in the colon. There is fat stranding around the sigmoid colon, consistent with diverticulitis. The appendix is not visua lized. There are no pathologically enlarged lymph nodes. There is no free intraperitoneal fluid. Ther e is subcutaneous fat stranding in supraumbilical anterior abdominal wall, consistent with inflammati on. There is mild thoracolumbar spondylosis. There are bridging endplate osteophytes at multiple leve ls in the thoracic spine, consistent with diffuse idiopathic skeletal hyperostosis (DISH). IMPRESSION: 1. Acute sigmoid diverticulitis. No perforation or abscess. Reviewed, dictated and finalized at location A.
[2021-10-29 22:29] VITALS: BP 155/87; PULSE 72; RESP 18; TEMP 37.2; O2SAT 100
--- NOTE | 2021-10-29 22:33 | ECG_ITS ---
Measurements Intervals [place] Rate: 68 P: 9 HI: 212 QRS: 7 QRSD: 101 T: 32 QT: 389 QTc: 414 Interpretive Statements SINUS RHYTHM WITH FIRST DEGREE AV BLOCK OTHERWISE NORMAL ECG NO PREVIOUS ECG AVAILABLE FOR COMPARISON Electronically Signed On 10-30-2021 11:11:53 CDT by Emiliano Ireland M.D.
--- NOTE | 2021-10-29 22:47 | ED.GENADULT ---
HPI - General Adult General Chief complaint: Back Pain/Injury Stated complaint: Back Pain and Belching Time Seen by Provider: 10/29/21 22:32 Source: patient and family Mode of arrival: ambulatory Limitations: no limitations History of Present Illness HPI narrative: 66-year-old female presents the [facility] for evaluation of left flank and left lower quadrant pain. Patient states the pain started approximately 530. Patient states that she suspects that belching does help with her pain. Related Data Home Medications Medication Instructions Recorded Confirmed fluticasone propionate 1 spray INTRANASAL BID 05/25/19 10/22/21 albuterol sulfate 90 mcg/actuation 1 puff INHALATION Q4H PRN 06/11/19 10/22/21 aerosol inhaler aspirin-caffeine 500 mg-32.5 mg 1 tablet PO DAILY PRN 04/14/20 10/22/21 tablet insulin detemir U-100 24 unit SUBCUT HS 10/15/20 10/22/21 blood-glucose meter 06/05/21 10/22/21 lancets 33 gauge 06/05/21 10/22/21 cholecalciferol (vitamin D3) 50 50 mcg PO DAILY 10/22/21 10/22/21 mcg (2,000 unit) capsule Allergies Allergy/AdvReac Type Severity Reaction Status Date / Time hydrocortisone Allergy Mild TEARS Verified 10/22/21 10:22 STOMACH UP poison yemi extract Allergy Unknown Unknown Verified 10/22/21 10:22 povidone Allergy Unknown Unknown Verified 10/22/21 10:22 povidone-iodine Allergy Unknown RASH Verified 10/22/21 10:22 soap Allergy Unknown Unknown Verified 10/22/21 10:22 Sulfa (Sulfonamide Allergy Unknown Unknown Verified 10/22/21 10:22 Antibiotics) sulfanilamide Allergy Unknown Unknown Verified 10/22/21 10:22 talc Allergy Unknown Unknown Verified 10/22/21 10:22 fluconazole [From Diflucan] Allergy Rash Verified 10/22/21 10:22 cetirizine [From Zyrtec] AdvReac Severe leg cramps Verified 10/22/21 10:22 lactose AdvReac Mild Unknown Verified 10/22/21 10:22 lisinopril AdvReac Mild Cough Verified 10/22/21 10:22 Review of Systems Review of Systems: CONSTITUTIONAL: Denies fever, chills, or sweats. EYES: Denies visual changes, redness, or discharge. ENT: Denies rhinorrhea, congestion, sore throat, or otalgia. CARDIOVASCULAR: Denies chest pain, palpitations, or edema. RESPIRATORY: Denies cough or dyspnea. GASTROINTESTINAL: Left lower quadrant abdominal pain that radiates to patient's back GENITOURINARY: Denies dysuria or hematuria. SKIN: Denies rash or itching. MUSCULOSKELETAL: Denies back pain, joint pain, or myalgia. NEUROLOGIC: Denies headache, numbness, or weakness. [facility] Past Medical History Medical History (Updated 10/30/21 @ 01:59 by Jamal Dupree MD) Asthma Colon cancer screening De Quervain's tenosynovitis, bilateral Dyslipidemia Environmental allergies Essential hypertension Hypothyroidism, unspecified Insomnia Pneumonia 06/2020 Type 2 diabetes mellitus with hyperglycemia Type 2 diabetes mellitus without complications Vitamin D deficiency Surgical History Surgical History History of carpal tunnel release of both wrists [id number] History of hand surgery (~1993) b/l - Multiple surgeries 1993, 2003 History of thoracentesis 06/2020 - Right loculated pleural effusion Family History Family History Father Hypertension Malignant neoplasm of prostate Family history of obesity Family history of cataracts Family history of congestive heart failure Mother Family history of hypothyroidism Family history of heart disease in male family member before age 55 Family history of obesity Family history of lung disease Family history of hearing loss Grandparent Family history of thyroid disease Family history of obesity Cerebrovascular accident Family history of arthritis Family history of congestive heart failure Diabetes mellitus Sibling Family history of malignant neoplasm of brain Family history of malignant neoplasm of kidney Family history of hea
[2021-10-29 23:20] VITALS: BP 178/79; PULSE 75; RESP 20; O2SAT 100
[2021-10-29 23:24] LABS: Add Urine Microscopic? YES; Appearance Urine Clear (Clear); Bilirubin Urine Negative (Negative); Blood Urine Negative (Negative); Color Urine Straw (Yellow); Glucose Urine UA Negative (Negative); Ketones Urine Negative (Negative); Leukocyte Esterase Ur Trace LEU/UL (Negative); Nitrate Urine Negative (Negative); Protein Urine Negative (Negative); Urobilinogen Urine Negative mg/dL (<2.0); WBC Urine 0-3 /hpf
[2021-10-29 23:25] LABS: Basophils Absolute Auto 0.1 K/mm3 (0.0-0.1); Basophils Percent Auto 0.7 % (0.2-1.2); Eosinophils Absolute Auto 0.5 K/mm3 (0-0.3); Eosinophils Percent Auto 3.7 % (0-4.4); Immature Granulocyte Absolute 0.05 K/mm3 (0.00-0.031); Immature Granulocyte Percent A 0.4 % (0-0.5); Lymphocytes Absolute Auto 3.55 K/mm3 (0.9-3.2); Lymphocytes Percent Auto 27.7 % (18.3-44.2); Mean Corpuscular HGB Conc 32.5 g/dl (32-36); Mean Corpuscular Hemoglobin 28.8 pg (26-34); Mean Corpuscular Volume 88.5 fl (80-100); Mean Platelet Volume 12.2 fl (7.4-10.4); Monocytes Absolute Auto 0.8 K/mm3 (0.1-0.6); Monocytes Percent Auto 6.1 % (2.6-8.5); Neutrophils Absolute Auto 7.9 K/mm3 (1.3-6.7); Neutrophils Percent Auto 61.4 % (45.5-73.1); Platelet Count Result 269 k/mm3 (150-375); Red Blood Count 4.52 M/mm3 (4.2-5.4); White Blood Count 12.8 K/mm3 (4.5-10.0)
[2021-10-29 23:28] LABS: Specific Grav Ur 1.004 (1.001-1.035)
[2021-10-29 23:35] LABS: Alanine Aminotransferase 22 U/L (4-35); Albumin Level 4.4 g/dL (3.5-5.1); Alkaline Phosphatase 135 U/L (38-126); Anion Gap 8 mmol/L (8-16); Aspartate Amino Transferase 31 U/L (14-36); Bilirubin,Total 0.3 mg/dL (0.2-1.3); Blood Urea Nitrogen 27 mg/dL (7-17); Calcium 9.3 mg/dL (8.4-10.2); Carbon Dioxide 29 mmol/L (22-30); Chloride 100 mmol/L (98-107); Estimated CRCL calculation 39 ml/min; Estimated Glomerular Filt Rate 35; Glucose 112 mg/dL (65-110); Lipase 91 U/L (23-300); Potassium 4.1 mmol/L (3.4-5.0); Sodium 137 mmol/L (137-145)
[2021-10-29] MEDS: HYDROmorphone HCL INJ (*CRX) 1 MG/ML SYR 0.5 MG IV PUSH (23:46)
[2021-10-29] MEDS: SODIUM CHLORIDE 0.9% IV 100 ML 500 ML (23:49)
[2021-10-30] VITALS: BP 170/61; PULSE 64; RESP 17; O2SAT 98
[2021-10-30 02:30] VITALS: BP 149/60; PULSE 63; RESP 15; O2SAT 100
[2021-10-30] MEDS: AMOXICILLIN/CLAVULANATE K 875-125 MG TAB 1 TABLET PO (02:45)
[2021-10-30 03:00] VITALS: BP 149/60; PULSE 63; RESP 15; O2SAT 100
== END 2021-10-30 03:00 | disposition home or self-care (01) ==
PROVIDERS: Emergency Provider Emergency Medicine; PCP Family Medicine
DX: K57.32 Diverticulitis of large intestine without perforation or abscess without bleeding (principal); J45.909 Unspecified asthma, uncomplicated; E78.5 Hyperlipidemia, unspecified; I10 Essential (primary) hypertension; E03.9 Hypothyroidism, unspecified; E11.9 Type 2 diabetes mellitus without complications; E55.9 Vitamin D deficiency, unspecified; Z87.01 Personal history of pneumonia (recurrent); Z79.82 Long term (current) use of aspirin; Z79.84 Long term (current) use of oral hypoglycemic drugs; Z79.4 Long term (current) use of insulin; Z87.891 Personal history of nicotine dependence; I44.0 Atrioventricular block, first degree
CPT/HCPCS: 36415; 74176; 80053; 81001; 83605; 83690; 85025; 93005; 96361; 96374; 99284; A9270; J1170

== ENCOUNTER 2021-11-02 13:08 | Emergency (ER) | payer MEDICARE, SELFPAY ==
--- NOTE | ~2021-11-02 | CT_ITS ---
EXAMINATION: CT abdomen pelvis wo con DATE: 11/02/2021 18:05 INDICATION: worsening pain, left lower back pain, recent diverticulitis diagnosis TECHNIQUE: Computed tomography (CT) of the abdomen and pelvis was performed without intravenous contr ast. The dose-length product was 1511.31 mGy-cm. COMPARISON: 10/30/2021. FINDINGS: Lower thorax: Unremarkable. Liver: Normal. Biliary/Gallbladder: Cholelithiasis. No bile duct dilation. Spleen: Normal. Pancreas: No mass or duct dilation. Adrenals:No mass. Kidneys: No mass, stone, or hydronephrosis. GI tract: No small or large bowel dilation. Appendix not visualized. Multiple sigmoid diverticuli. Pe rsistent, possibly slightly improved mild. Sigmoid inflammatory change in the deep pelvis. Mesentery/Peritoneum: No ascites, mass, or free air. Retroperitoneum: No mass. Pelvis: Pelvic organs are within normal limits. Bones/Soft Tissues: Small fat-containing umbilical hernia. Unchanged subcutaneous contusions in the a nterior abdominal wall. Additional Findings: None. IMPRESSION: No new acute abdominopelvic process. Mild sigmoid diverticulitis, slightly improved. Reviewed, dictated and finalized at location K. IMPRESSION: No new acute abdominopelvic process. Mild sigmoid diverticulitis, slightly impr corey.
[2021-11-02 13:15] VITALS: BP 141/73; PULSE 69; RESP 16; TEMP 36.3; O2SAT 100
[2021-11-02 14:02] LABS: Basophils Absolute Auto 0.1 K/mm3 (0.0-0.1); Basophils Percent Auto 0.6 % (0.2-1.2); Eosinophils Absolute Auto 0.2 K/mm3 (0-0.3); Eosinophils Percent Auto 2.1 % (0-4.4); Hematocrit 42.9 % (37.0-47.0); Hemoglobin 13.6 g/dL (12.0-15.0); Immature Granulocyte Absolute 0.03 K/mm3 (0.00-0.031); Immature Granulocyte Percent A 0.3 % (0-0.5); Lymphocytes Absolute Auto 2.01 K/mm3 (0.9-3.2); Lymphocytes Percent Auto 18.9 % (18.3-44.2); Mean Corpuscular HGB Conc 31.7 g/dl (32-36); Mean Corpuscular Hemoglobin 28.9 pg (26-34); Mean Corpuscular Volume 91.1 fl (80-100); Mean Platelet Volume 12.3 fl (7.4-10.4); Monocytes Absolute Auto 0.5 K/mm3 (0.1-0.6); Monocytes Percent Auto 4.9 % (2.6-8.5); Neutrophils Absolute Auto 7.8 K/mm3 (1.3-6.7); Neutrophils Percent Auto 73.2 % (45.5-73.1); Platelet Count Result 268 k/mm3 (150-375); Red Blood Count 4.71 M/mm3 (4.2-5.4); White Blood Count 10.7 K/mm3 (4.5-10.0)
[2021-11-02 14:14] LABS: Alanine Aminotransferase 18 U/L (4-35); Albumin Level 4.1 g/dL (3.5-5.1); Alkaline Phosphatase 75 U/L (38-126); Anion Gap 9 mmol/L (8-16); Aspartate Amino Transferase 26 U/L (14-36); Bilirubin,Total 0.3 mg/dL (0.2-1.3); Blood Urea Nitrogen 16 mg/dL (7-17); Calcium 9.2 mg/dL (8.4-10.2); Carbon Dioxide 23 mmol/L (22-30); Chloride 105 mmol/L (98-107); Estimated Glomerular Filt Rate 41; Glucose 150 mg/dL (65-110); Lipase 98 U/L (23-300); Potassium 4.1 mmol/L (3.4-5.0); Sodium 137 mmol/L (137-145)
[2021-11-02 16:12] VITALS: BP 180/85; PULSE 81; RESP 18; O2SAT 100
--- NOTE | 2021-11-02 16:29 | ED.ABDPAIN ---
HPI - Abdominal Pain General Chief Complaint: Abdominal Pain Stated Complaint: abd pain/back pain Time Seen by Provider: 11/02/21 16:14 Source: patient Mode of arrival: wheelchair Limitations: no limitations History of Present Illness HPI narrative: This is a 66 year old female that presents to the ER for LLQ abdominal pain. Reports she was recently diagnosed with diverticulitis and started on Augmentin. She has been taking this as prescribed. Reports after her dose this morning the pain acutely worsened again. She had some associated diarrhea. Denies fever, vomiting, dysuria, hematuria. Related Data Home Medications Medication Instructions Recorded Confirmed fluticasone propionate 1 spray INTRANASAL BID 05/25/19 10/22/21 albuterol sulfate 90 mcg/actuation 1 puff INHALATION Q4H PRN 06/11/19 10/22/21 aerosol inhaler aspirin-caffeine 500 mg-32.5 mg 1 tablet PO DAILY PRN 04/14/20 10/22/21 tablet insulin detemir U-100 24 unit SUBCUT HS 10/15/20 10/22/21 blood-glucose meter 06/05/21 10/22/21 lancets 33 gauge 06/05/21 10/22/21 cholecalciferol (vitamin D3) 50 50 mcg PO DAILY 10/22/21 10/22/21 mcg (2,000 unit) capsule Allergies Allergy/AdvReac Type Severity Reaction Status Date / Time hydrocortisone Allergy Mild TEARS Verified 11/02/21 16:17 STOMACH UP poison yemi extract Allergy Unknown Unknown Verified 11/02/21 16:17 povidone Allergy Unknown Unknown Verified 11/02/21 16:17 povidone-iodine Allergy Unknown RASH Verified 11/02/21 16:17 soap Allergy Unknown Unknown Verified 11/02/21 16:17 Sulfa (Sulfonamide Allergy Unknown Unknown Verified 11/02/21 16:17 Antibiotics) sulfanilamide Allergy Unknown Unknown Verified 11/02/21 16:17 talc Allergy Unknown Unknown Verified 11/02/21 16:17 fluconazole [From Diflucan] Allergy Rash Verified 11/02/21 16:17 cetirizine [From Zyrtec] AdvReac Severe leg cramps Verified 11/02/21 16:17 lactose AdvReac Mild Unknown Verified 11/02/21 16:17 lisinopril AdvReac Mild Cough Verified 11/02/21 16:17 Review of Systems Review of Systems: CONSTITUTIONAL: Denies fever GASTROINTESTINAL: Reports abdominal pain, and diarrhea. Denies nausea or vomiting GENITOURINARY: Denies dysuria or hematuria. All systems reviewed & are unremarkable except as noted in HPI and below PMFSH Past Medical History Medical History (Updated 11/02/21 @ 18:45 by Chela Harvey PA-C) Asthma Colon cancer screening De Quervain's tenosynovitis, bilateral Dyslipidemia Environmental allergies Essential hypertension Hypothyroidism, unspecified Insomnia Pneumonia 06/2020 Type 2 diabetes mellitus with hyperglycemia Type 2 diabetes mellitus without complications Vitamin D deficiency Surgical History Surgical History History of carpal tunnel release of both wrists [id number] History of hand surgery (~1993) b/l - Multiple surgeries 1993, 2003 History of thoracentesis 06/2020 - Right loculated pleural effusion Family History Family History Father Hypertension Malignant neoplasm of prostate Family history of obesity Family history of cataracts Family history of congestive heart failure Mother Family history of hypothyroidism Family history of heart disease in male family member before age 55 Family history of obesity Family history of lung disease Family history of hearing loss Grandparent Family history of thyroid disease Family history of obesity Cerebrovascular accident Family history of arthritis Family history of congestive heart failure Diabetes mellitus Sibling Family history of malignant neoplasm of brain Family history of malignant neoplasm of kidney Family history of heart disease in male family member before age 55 Other Family history of cardiovascular disease Family history of lung cancer Family history of malignant neoplasm Social History Social Hist
[2021-11-02] MEDS: MORPHINE SULFATE (*CRX) 4 MG/ML INJ IV PUSH (16:44)
[2021-11-02] MEDS: ONDANSETRON INJ 4 MG/2 ML VIAL IV PUSH (16:44)
[2021-11-02 16:55] LABS: Appearance Urine Clear (Clear); Bilirubin Urine Negative (Negative); Color Urine Yellow (Yellow); Glucose Urine UA Negative (Negative); Ketones Urine Negative (Negative); Leukocyte Esterase Ur 1+ LEU/UL (Negative); Nitrate Urine Negative (Negative); Protein Urine Negative (Negative); Specific Grav Ur 1.025 (1.001-1.035); Urobilinogen Urine 0.2 mg/dL (<2.0); pH Urine 5.5 (5.0-9.0)
[2021-11-02 16:57] LABS: Add Urine Microscopic? YES; Blood Urine Trace-Intact (Negative)
[2021-11-02 17:04] LABS: Bacteria Urine Trace /hpf; Mucus Urine Rare /lpf; RBC Urine 0-2 /hpf (0-2); Squamous Epithelial Cell Urine Occasional /hpf (Few); WBC Urine 0-3 /hpf
[2021-11-02 17:20] LABS: Lactic Acid Reflex 1.2 mmol/L (0.7-2.1)
[2021-11-02 17:28] VITALS: BP 188/83; PULSE 67; RESP 15; O2SAT 100
[2021-11-02 19:11] VITALS: BP 146/79; PULSE 78; RESP 17; O2SAT 99
== END 2021-11-02 19:13 | disposition home or self-care (01) ==
PROVIDERS: Emergency Medicine; Physician Assistant; Emergency Provider Emergency Medicine; PCP Family Medicine
DX: K57.32 Diverticulitis of large intestine without perforation or abscess without bleeding (principal); E11.9 Type 2 diabetes mellitus without complications; J45.909 Unspecified asthma, uncomplicated; E78.5 Hyperlipidemia, unspecified; I10 Essential (primary) hypertension; E03.9 Hypothyroidism, unspecified; Z87.01 Personal history of pneumonia (recurrent); E55.9 Vitamin D deficiency, unspecified; Z87.891 Personal history of nicotine dependence; Z79.4 Long term (current) use of insulin; Z79.84 Long term (current) use of oral hypoglycemic drugs
CPT/HCPCS: 36415; 74176; 80053; 81001; 83605; 83690; 85025; 96365; 96375; 99284; J0131; J2270; J2405

== ENCOUNTER 2022-04-23 11:01 | Outpatient (CLI) | payer MEDICARE, SELFPAY ==
[2022-04-26 10:15] LABS: Alanine Aminotransferase 22 U/L (6-35); Albumin Level 4.3 g/dL (3.5-5.1); Alkaline Phosphatase 108 U/L (38-126); Anion Gap 12 mmol/L (8-16); Aspartate Amino Transferase 23 U/L (14-36); Bilirubin,Total 0.3 mg/dL (0.2-1.3); Blood Urea Nitrogen 24 mg/dL (7-17); Calcium 9.5 mg/dL (8.4-10.2); Carbon Dioxide 24 mmol/L (22-30); Chloride 103 mmol/L (98-107); Cholesterol 152 mg/dL (0-200); Estimated Glomerular Filt Rate 38; Glucose 86 mg/dL (65-110); HDL Direct 45 mg/dL; Potassium 4.6 mmol/L (3.4-5.0); Sodium 139 mmol/L (137-145); Triglycerides 171 mg/dL (<150)
[2022-04-26 10:26] LABS: LDL Cholesterol Direct 67 mg/dL
[2022-04-26 11:04] LABS: White Blood Count 9.4 K/mm3 (4.5-10.0)
[2022-04-26 11:05] LABS: Hematocrit 41.6 % (37.0-47.0); Hemoglobin 13.5 g/dL (12.0-15.0); Immature Platelet Fraction Pct 27.5 % (0.9-11.2); Mean Corpuscular HGB Conc 32.5 g/dl (32-36); Mean Corpuscular Hemoglobin 29.2 pg (26-34); Platelet Count Result 113 k/mm3 (150-375); Red Blood Count 4.62 M/mm3 (4.2-5.4); Red Cell Distribution Width 13.1 % (11.5-14.5)
[2022-04-26 11:06] LABS: Basophils Absolute Auto 0.1 K/mm3 (0.0-0.1); Basophils Percent Auto 0.8 % (0.2-1.2); Eosinophils Absolute Auto 0.4 K/mm3 (0-0.3); Eosinophils Percent Auto 3.7 % (0-4.4); Immature Granulocyte Absolute 0.03 K/mm3 (0.00-0.031); Immature Granulocyte Percent A 0.3 % (0-0.5); Lymphocytes Absolute Auto 2.43 K/mm3 (0.9-3.2); Lymphocytes Percent Auto 25.8 % (18.3-44.2); Monocytes Absolute Auto 0.7 K/mm3 (0.1-0.6); Monocytes Percent Auto 6.9 % (2.6-8.5); Neutrophils Absolute Auto 5.9 K/mm3 (1.3-6.7); Neutrophils Percent Auto 62.5 % (45.5-73.1)
[2022-04-26 11:08] LABS: Platelet Clumps Present; Platelet Estimate Adequate (Adequate); Schistocytes None Seen (NORMAL)
[2022-04-26 12:53] LABS: Free T4 Free Thyroxine 1.71 ng/mL (0.78-2.19)
== END 2022-04-23 11:02 | disposition home or self-care (01) ==
LOC: ANHGOSHLAB 11:03
PROVIDERS: PCP Family Medicine; Visit Provider Nurse Practitioner Family
DX: I10 Essential (primary) hypertension (principal); E78.5 Hyperlipidemia, unspecified; E55.9 Vitamin D deficiency, unspecified; E03.9 Hypothyroidism, unspecified
CPT/HCPCS: 36415; 80053; 80061; 82306; 84439; 84443; 85025; 85055

== ENCOUNTER 2022-05-31 11:06 | Outpatient (CLI) | payer MEDICARE, SELFPAY ==
[2022-05-31 18:55] LABS: Hemoglobin 13.2 g/dL (12.0-15.0); Mean Corpuscular HGB Conc 32.2 g/dl (32-36); Mean Corpuscular Hemoglobin 28.9 pg (26-34); Mean Corpuscular Volume 89.7 fl (80-100); Mean Platelet Volume 12.8 fl (7.4-10.4); Platelet Count Result 69 k/mm3 (150-375); Red Blood Count 4.57 M/mm3 (4.2-5.4); Red Cell Distribution Width 13.2 % (11.5-14.5); White Blood Count 8.8 K/mm3 (4.5-10.0)
== END 2022-05-31 11:07 | disposition home or self-care (01) ==
PROVIDERS: PCP Family Medicine; Visit Provider Nurse Practitioner Family
DX: D69.6 Thrombocytopenia, unspecified (principal)
CPT/HCPCS: 36415; 85027

== ENCOUNTER 2022-06-14 14:26 | Outpatient (CLI) | payer MEDICARE, SELFPAY ==
[2022-06-14 14:42] LABS: Basophils Absolute Auto 0.1 K/mm3 (0.0-0.1); Basophils Percent Auto 0.6 % (0.2-1.2); Eosinophils Absolute Auto 0.2 K/mm3 (0-0.3); Eosinophils Percent Auto 2.5 % (0-4.4); Hematocrit 41.5 % (37.0-47.0); Hemoglobin 13.7 g/dL (12.0-15.0); Immature Granulocyte Absolute 0.04 K/mm3 (0.00-0.031); Immature Granulocyte Percent A 0.4 % (0-0.5); Lymphocytes Absolute Auto 2.66 K/mm3 (0.9-3.2); Lymphocytes Percent Auto 28.5 % (18.3-44.2); Mean Corpuscular Volume 87.9 fl (80-100); Mean Platelet Volume 11.9 fl (7.4-10.4); Monocytes Absolute Auto 0.5 K/mm3 (0.1-0.6); Monocytes Percent Auto 5.5 % (2.6-8.5); Neutrophils Absolute Auto 5.8 K/mm3 (1.3-6.7); Neutrophils Percent Auto 62.5 % (45.5-73.1); Platelet Count Result 285 k/mm3 (150-375); Red Blood Count 4.72 M/mm3 (4.2-5.4); Red Cell Distribution Width 13.2 % (11.5-14.5); White Blood Count 9.3 K/mm3 (4.5-10.0)
[2022-06-14 16:12] LABS: Iron 71 ug/dL (37-170)
[2022-06-14 16:15] LABS: Alanine Aminotransferase 24 U/L (6-35); Albumin Level 4.6 g/dL (3.5-5.1); Alkaline Phosphatase 95 U/L (38-126); Anion Gap 12 mmol/L (8-16); Aspartate Amino Transferase 28 U/L (14-36); Bilirubin,Total 0.5 mg/dL (0.2-1.3); Blood Urea Nitrogen 21 mg/dL (7-17); Carbon Dioxide 29 mmol/L (22-30); Chloride 99 mmol/L (98-107); Estimated Glomerular Filt Rate 38; Glucose 165 mg/dL (65-110); Lactate Dehydrogenase 191 U/L (120-246); Potassium 4.6 mmol/L (3.4-5.0); Sodium 140 mmol/L (137-145)
[2022-06-14 16:22] LABS: Percent Iron Saturation 20 % (20-50)
[2022-06-14 17:18] LABS: Folic Acid 10.2 ng/mL (2.76->20)
[2022-06-22 15:49] LABS: Reference Lab Test Result Negative
== END 2022-06-14 14:27 | disposition home or self-care (01) ==
PROVIDERS: PCP Family Medicine; Visit Provider Internal Medicine Hematology & Oncology
DX: D69.59 Other secondary thrombocytopenia (principal); D64.9 Anemia, unspecified
CPT/HCPCS: 36415; 80053; 82607; 82728; 82746; 83540; 83550; 83615; 85025; 86023

== ENCOUNTER 2022-09-21 11:51 | Outpatient (CLI) | payer MEDICARE, SELFPAY ==
[2022-09-21 12:14] LABS: Basophils Absolute Auto 0.1 K/mm3 (0.0-0.1); Eosinophils Absolute Auto 0.4 K/mm3 (0-0.3); Eosinophils Percent Auto 4.4 % (0-4.4); Hemoglobin 12.9 g/dL (12.0-15.0); Immature Granulocyte Absolute 0.03 K/mm3 (0.00-0.031); Immature Granulocyte Percent A 0.4 % (0-0.5); Lymphocytes Percent Auto 32.8 % (18.3-44.2); Mean Corpuscular HGB Conc 32.3 g/dl (32-36); Mean Corpuscular Volume 89.9 fl (80-100); Mean Platelet Volume 12.2 fl (7.4-10.4); Monocytes Absolute Auto 0.6 K/mm3 (0.1-0.6); Monocytes Percent Auto 6.9 % (2.6-8.5); Neutrophils Absolute Auto 4.5 K/mm3 (1.3-6.7); Neutrophils Percent Auto 54.5 % (45.5-73.1); Platelet Count Result 229 k/mm3 (150-375); Red Blood Count 4.45 M/mm3 (4.2-5.4); Red Cell Distribution Width 13.2 % (11.5-14.5); White Blood Count 8.2 K/mm3 (4.5-10.0)
[2022-09-21 12:49] LABS: Anion Gap 4 mmol/L (8-16); Blood Urea Nitrogen 26 mg/dL (7-17); Carbon Dioxide 31 mmol/L (22-30); Chloride 105 mmol/L (98-107); Estimated Glomerular Filt Rate 37; Glucose 143 mg/dL (65-110); Potassium 4.3 mmol/L (3.4-5.0); Sodium 140 mmol/L (137-145)
[2022-09-21 13:52] LABS: Folic Acid 7.4 ng/mL (2.76->20)
== END 2022-09-21 11:52 | disposition home or self-care (01) ==
LOC: ANHLAB 11:53
PROVIDERS: PCP Family Medicine; Visit Provider Internal Medicine Hematology & Oncology
DX: D64.9 Anemia, unspecified (principal)
CPT/HCPCS: 36415; 80048; 82607; 82746; 85025

== ENCOUNTER 2022-11-01 14:12 | Outpatient (CLI) | payer MEDICARE, SELFPAY ==
[2022-11-01 19:32] LABS: Basophils Absolute Auto 0.1 K/mm3 (0.0-0.1); Basophils Percent Auto 0.8 % (0.2-1.2); Eosinophils Absolute Auto 0.3 K/mm3 (0-0.3); Hematocrit 44.7 % (37.0-47.0); Hemoglobin 14.3 g/dL (12.0-15.0); Immature Granulocyte Absolute 0.04 K/mm3 (0.00-0.031); Immature Granulocyte Percent A 0.4 % (0-0.5); Immature Platelet Fraction Pct 20.8 % (0.9-11.2); Lymphocytes Absolute Auto 3.36 K/mm3 (0.9-3.2); Lymphocytes Percent Auto 33.9 % (18.3-44.2); Mean Corpuscular Hemoglobin 28.9 pg (26-34); Mean Corpuscular Volume 90.3 fl (80-100); Monocytes Absolute Auto 0.5 K/mm3 (0.1-0.6); Monocytes Percent Auto 5.3 % (2.6-8.5); Neutrophils Absolute Auto 5.6 K/mm3 (1.3-6.7); Neutrophils Percent Auto 56.6 % (45.5-73.1); Platelet Count Result 195 k/mm3 (150-375); Red Blood Count 4.95 M/mm3 (4.2-5.4); Red Cell Distribution Width 13.7 % (11.5-14.5); White Blood Count 9.9 K/mm3 (4.5-10.0)
[2022-11-01 20:11] LABS: Hypochromasia 1+ (NORMAL); Platelet Estimate Adequate (Adequate); Schistocytes None Seen (NORMAL)
[2022-11-01 20:26] LABS: Alanine Aminotransferase 22 U/L (6-35); Albumin Level 4.6 g/dL (3.5-5.1); Alkaline Phosphatase 101 U/L (38-126); Anion Gap 9 mmol/L (8-16); Aspartate Amino Transferase 29 U/L (14-36); Bilirubin,Total 0.7 mg/dL (0.2-1.3); Blood Urea Nitrogen 27 mg/dL (7-17); Calcium 9.3 mg/dL (8.4-10.2); Carbon Dioxide 28 mmol/L (22-30); Chloride 101 mmol/L (98-107); Cholesterol 172 mg/dL (0-200); Estimated Glomerular Filt Rate 45; Glucose 115 mg/dL (65-110); HDL Direct 44 mg/dL; Potassium 4.4 mmol/L (3.4-5.0); Sodium 138 mmol/L (137-145); Triglycerides 224 mg/dL (<150)
[2022-11-01 20:30] LABS: LDL Cholesterol Direct 68 mg/dL
[2022-11-01 21:01] LABS: Hemoglobin A1C 6.7 % (<5.7)
== END 2022-11-01 14:13 | disposition home or self-care (01) ==
LOC: ANHGOSHLAB 14:14
PROVIDERS: PCP Family Medicine; Visit Provider Nurse Practitioner Family
DX: E78.5 Hyperlipidemia, unspecified (principal); E03.9 Hypothyroidism, unspecified; E11.9 Type 2 diabetes mellitus without complications; I10 Essential (primary) hypertension
CPT/HCPCS: 36415; 80053; 80061; 83036; 84443; 85025; 85055

== ENCOUNTER 2023-04-01 14:05 | Outpatient (CLI) | payer MEDICARE, SELFPAY ==
[2023-04-01 14:19] LABS: Basophils Absolute Auto 0.1 K/mm3 (0.0-0.1); Basophils Percent Auto 0.8 % (0.2-1.2); Eosinophils Absolute Auto 0.3 K/mm3 (0-0.3); Eosinophils Percent Auto 2.5 % (0-4.4); Hematocrit 41.4 % (37.0-47.0); Hemoglobin 13.7 g/dL (12.0-15.0); Immature Granulocyte Absolute 0.03 K/mm3 (0.00-0.031); Immature Granulocyte Percent A 0.3 % (0-0.5); Lymphocytes Absolute Auto 2.77 K/mm3 (0.9-3.2); Lymphocytes Percent Auto 27.2 % (18.3-44.2); Mean Corpuscular HGB Conc 33.1 g/dl (32-36); Mean Corpuscular Volume 87.7 fl (80-100); Mean Platelet Volume 12.5 fl (7.4-10.4); Monocytes Absolute Auto 0.7 K/mm3 (0.1-0.6); Monocytes Percent Auto 7.1 % (2.6-8.5); Neutrophils Absolute Auto 6.3 K/mm3 (1.3-6.7); Neutrophils Percent Auto 62.1 % (45.5-73.1); Platelet Count Result 272 k/mm3 (150-375); Red Blood Count 4.72 M/mm3 (4.2-5.4); Red Cell Distribution Width 14.5 % (11.5-14.5); White Blood Count 10.2 K/mm3 (4.5-10.0)
[2023-04-01 15:21] LABS: Anion Gap 9 mmol/L (8-16); Blood Urea Nitrogen 23 mg/dL (7-17); Calcium 9.7 mg/dL (8.4-10.2); Carbon Dioxide 27 mmol/L (22-30); Chloride 101 mmol/L (98-107); Estimated Glomerular Filt Rate 35; Glucose 110 mg/dL (65-110); Potassium 3.9 mmol/L (3.4-5.0); Sodium 137 mmol/L (137-145)
[2023-04-01 16:11] LABS: Vitamin B12 > 1000.0 pg/mL (239-931)
[2023-04-01 17:26] LABS: Folic Acid 13.1 ng/mL (2.76->20)
== END 2023-04-01 14:06 | disposition home or self-care (01) ==
LOC: ANHLAB 14:07
PROVIDERS: PCP Family Medicine; Visit Provider Internal Medicine Hematology & Oncology
DX: D64.9 Anemia, unspecified (principal)
CPT/HCPCS: 36415; 80048; 82607; 82746; 85025

== ENCOUNTER 2023-05-31 12:55 | Outpatient (CLI) | payer MEDICARE, SELFPAY ==
[2023-05-31 19:49] LABS: Alanine Aminotransferase 18 U/L (6-35); Albumin Level 4.1 g/dL (3.5-5.1); Alkaline Phosphatase 79 U/L (38-126); Anion Gap 6 mmol/L (8-16); Aspartate Amino Transferase 30 U/L (14-36); Bilirubin,Total 0.5 mg/dL (0.2-1.3); Blood Urea Nitrogen 20 mg/dL (7-17); Calcium 9.8 mg/dL (8.4-10.2); Carbon Dioxide 30 mmol/L (22-30); Chloride 101 mmol/L (98-107); Estimated Glomerular Filt Rate 49; Glucose 111 mg/dL (65-110); HDL Direct 40 mg/dL; Sodium 137 mmol/L (137-145)
[2023-05-31 20:00] LABS: LDL Cholesterol Direct 66 mg/dL
[2023-05-31 20:17] LABS: Thyroid Stimulating Hormone 0.947 uIU/mL (0.465-4.680)
[2023-05-31 20:17] LABS: Microalbumin Urine Random 28.8 mg/L (0-16.7)
[2023-05-31 20:20] LABS: Creatinine Urine 47.5 mg/dL; MALB Creatinine Ratio 60.6 mg/g (0-30)
[2023-05-31 20:31] LABS: Free T4 Free Thyroxine 1.77 ng/mL (0.78-2.19)
[2023-05-31 20:38] LABS: Vitamin B12 > 1000.0 pg/mL (239-931)
== END 2023-05-31 12:56 | disposition home or self-care (01) ==
PROVIDERS: PCP Family Medicine; Visit Provider Nurse Practitioner Family
DX: E03.9 Hypothyroidism, unspecified (principal); E11.9 Type 2 diabetes mellitus without complications; I12.9 Hypertensive chronic kidney disease with stage 1 through stage 4 chronic kidney disease, or unspecified chronic kidney disease; N18.30 Chronic kidney disease, stage 3 unspecified; E55.9 Vitamin D deficiency, unspecified; Z91.09 Other allergy status, other than to drugs and biological substances
CPT/HCPCS: 36415; 80053; 82043; 82607; 83718; 83721; 84439; 84443

== ENCOUNTER → 2023-07-28 14:34 | Outpatient (CLI) | payer MEDICARE, SELFPAY ==
--- NOTE | ~2023-07-28 | XR_ITS ---
XR chest 2V DATE: 07/28/2023 14:49 INDICATION: Cough for 5 days. Hypertension. Type 2 diabetes mellitus. Asthma. TECHNIQUE: PA and lateral views COMPARISON: 07/18/2020 AP chest FINDINGS: There is interval resolution of right mid and lower lung consolidation since 07/18/2020. Th e lungs are clear of infiltrate or consolidation. No pleural effusion or pulmonary vascular congestio n or pneumothorax is detected. Multiple calcified faceted gallstones are noted in the right upper quadrant. There is degenerative spurring of the thoracic spine. IMPRESSION: No active cardiac pulmonary disease Cholelithiasis Reviewed, dictated and finalized at location L. 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
== END ==
PROVIDERS: PCP Family Medicine; Visit Provider Family Medicine
DX: R05.9 Cough, unspecified (principal); I12.9 Hypertensive chronic kidney disease with stage 1 through stage 4 chronic kidney disease, or unspecified chronic kidney disease; N18.9 Chronic kidney disease, unspecified; E11.9 Type 2 diabetes mellitus without complications; J45.909 Unspecified asthma, uncomplicated; K80.20 Calculus of gallbladder without cholecystitis without obstruction
CPT/HCPCS: 71046

== ENCOUNTER 2023-08-01 14:55 | Outpatient (CLI) | payer MEDICARE, SELFPAY ==
--- NOTE | ~2023-08-01 | MM_ITS ---
EXAMINATION: MM screening katy BI w domenico HISTORY: Screening mammogram TECHNIQUE: Craniocaudal and mediolateral oblique 3-D tomosynthesis images were obtained and synthetic 2-D images were generated. CAD analysis was submitted and interpreted. COMPARISON: 12/02/2020, 11/2017 bilateral screening mammogram examinations BREAST PARENCHYMAL COMPOSITION: There are scattered areas of fibroglandular density. FINDINGS: There is no evidence of suspicious mass, calcification, or architectural distortion to sugg est malignancy in either breast. There has been no suspicious interval change. IMPRESSION: 1. No mammographic evidence of malignancy. 2. Recommend routine screening mammography in one year. BI-RADS Category 1: Negative Reviewed, dictated and finalized at location B. TECH
--- NOTE | ~2023-08-01 | DEXA_ITS ---
Bone Density Report Name: MANOLO SWANN Age: 67 Sex: Female Ethnicity: White Date of : 1955 Indication: postmenopausal; screening for osteoporosis; parental hip fracture; Referring Provider: NIGEL OLIVAREZ Study: Bone densitometry was performed. Exam Date: August 01, 2023 Accession number: [id number] Bone Density: Region BMD T-score Z-score Classification AP Spine(L1-L4) 1.611 5.1 7.2 Normal Femoral Neck (Left) 0.786 -0.6 1.2 Normal Total Hip (Left) 1.007 0.5 2.0 Normal Femoral Neck (Right) 0.781 -0.6 1.1 Normal Total Hip (Right) 1.027 0.7 2.1 Normal Total Hip Mean 1.017 0.6 2.1 Normal World Health Organization criteria for BMD impression classify patients as: Normal (T-score at or above -1.0), Osteopenia (T-score between -1.0 and -2.5), or Osteoporosis (T-score at or below -2.5). 10-year Fracture Risk: FRAX not reported because: All T-scores for Spine Total, Hip Total, Femoral Neck at or above -1.0 Previous Exams: Region Exam Age BMD T-score BMD Change BMD Change Date g/cm2 vs Baseline vs Previous AP Spine (L1-L4) 08/01/2023 67 1.611 5.1 0.025 (1.6%)# -0.023 (-1.4%) 12/02/2020 65 1.634 5.3 0.048 (3.0%)# 0.048 (3.0%)# 11/25/2017 62 1.586 4.9 Total Hip(Left) 08/01/2023 67 1.007 0.5 -0.204 (-16.8% -0.052 (-4.9%) 12/02/2020 65 1.059 1.0 -0.152 (-12.6% -0.152 (-12.6% 11/25/2017 62 1.211 2.2 Total Hip(Right) 08/01/2023 67 1.027 0.7 -0.156 (-13.2% -0.057 (-5.3%) 12/02/2020 65 1.085 1.2 -0.099 (-8.4%) -0.099 (-8.4%) 11/25/2017 62 1.183 2.0 *Denotes significance at 95% confidence level, LSC for AP Spine = 0.022 g/cm2, LSC for Total Hip = 0.027 g/cm2 # Denotes dissimilar scan types or analysis methods Clinical Information Provided by Patient: Parent has had a hip fracture Has used the following medications: Vitamin D Patient maximum height was 63.75 Menopause Age: 50 No regular weight bearing exercise Drinks caffeinated beverages Onset of menses at age 11 Number of children 0 Impression: The patient has normal bone mass. The patient has risk factors, including: parental hip fracture. The BMD for the AP Spine (L1-L4) decreased, changing by -1.4% since the last DXA exam. The BMD for the Total Hip(Left) decreased, changing by -4.9% since the last DXA exam. The BMD for the Total Hip(Right) decreased, changing by -5.3% since the last DXA exam. Discussion
== END 2023-08-01 14:56 | disposition home or self-care (01) ==
LOC: ANHIMG 14:59
PROVIDERS: PCP Family Medicine; Visit Provider Nurse Practitioner Family
DX: Z12.31 Encounter for screening mammogram for malignant neoplasm of breast (principal); Z78.0 Asymptomatic menopausal state
CPT/HCPCS: 77063; 77067; 77080

== ENCOUNTER → 2023-08-03 10:14 | Outpatient (CLI) | payer MEDICARE, SELFPAY ==
--- NOTE | ~2023-08-03 | US_ITS ---
Renal-Bladder ultrasound Clinical History: Chronic kidney disease Technique: Real-time sonographic imaging of the kidneys and urinary bladder was performed. Findings: The right kidney measures 10.6 cm in length and the left kidney measures 11.3 cm. There is no hydronephrosis or renal calculus identified. Renal cortical echogenicity is within normal limits. No renal mass lesion is identified. The urinary bladder is collapsed, limiting evaluation. Impression: Unremarkable ultrasound of the kidneys. Collapsed urinary bladder limits evaluation. Reviewed, dictated and finalized at location M. GRATION INVESTIGATOR Impression: Unremarkable ultrasound of the kidneys. Collapsed urinary bladder limits evalua tion.
== END ==
PROVIDERS: PCP Family Medicine; Visit Provider Internal Medicine Nephrology
DX: N18.31 Chronic kidney disease, stage 3a (principal)
CPT/HCPCS: 76775

== ENCOUNTER 2023-08-03 10:38 | Outpatient (CLI) | payer MEDICARE, SELFPAY ==
[2023-08-03 18:58] LABS: Complement C3 124 mg/dL (88-165)
[2023-08-03 19:08] LABS: Creatinine Urine 40.2 mg/dL; Total Protein Urine Random 17 mg/dL; Ur Ttl Prot Creatinine Ratio 0.42 mg/mg (0-0.20)
[2023-08-03 19:12] LABS: Vitamin D 25 Hydroxy 36.5 ng/mL
[2023-08-03 19:16] LABS: Albumin Level 4.3 g/dL (3.5-5.1); Anion Gap 9 mmol/L (8-16); Blood Urea Nitrogen 26 mg/dL (7-17); Calcium 9.8 mg/dL (8.4-10.2); Carbon Dioxide 31 mmol/L (22-30); Chloride 98 mmol/L (98-107); Estimated Glomerular Filt Rate 37; Glucose 108 mg/dL (65-110); Phosphorus 3.9 mg/dL (2.5-4.5); Potassium 4.1 mmol/L (3.4-5.0); Sodium 138 mmol/L (137-145)
[2023-08-06 12:11] LABS: Anti Glomerular Basement Memb <1.0 AI (<1.0)
[2023-08-07 15:03] LABS: Albumin 3.8 g/dL (3.8-4.8); Alpha 1 Globulin 0.3 g/dL (0.2-0.3); Alpha 2 Globulin 1.1 g/dL (0.5-0.9); Beta 1 Globulin 0.4 g/dL (0.4-0.6); Gamma Globulin 0.9 g/dL (0.8-1.7)
[2023-08-07 21:34] LABS: ANCA Screen Negative (Negative)
[2023-08-10 14:00] LABS: Creatinine, Random Urine 41 mg/dL (20-275); Total Protein/Creatinine Ratio 171 mg/g creat (24-184)
== END 2023-08-03 10:39 | disposition home or self-care (01) ==
PROVIDERS: Nurse Practitioner Family; PCP Family Medicine; Visit Provider Internal Medicine Nephrology
DX: E11.9 Type 2 diabetes mellitus without complications (principal); E03.9 Hypothyroidism, unspecified; E55.9 Vitamin D deficiency, unspecified; N18.30 Chronic kidney disease, stage 3 unspecified; Z91.09 Other allergy status, other than to drugs and biological substances; I12.9 Hypertensive chronic kidney disease with stage 1 through stage 4 chronic kidney disease, or unspecified chronic kidney disease; N18.31 Chronic kidney disease, stage 3a
CPT/HCPCS: 36415; 80069; 82306; 82570; 83520; 84155; 84156; 84165; 84166; 86036; 86038; 86160; 86225

== ENCOUNTER 2023-11-04 11:51 | Outpatient (CLI) | payer MEDICARE, SELFPAY ==
[2023-11-04 17:21] LABS: Basophils Absolute Auto 0.1 K/mm3 (0.0-0.1); Basophils Percent Auto 0.6 % (0.2-1.2); Eosinophils Absolute Auto 0.4 K/mm3 (0-0.3); Eosinophils Percent Auto 4.1 % (0-4.4); Hematocrit 40.6 % (37.0-47.0); Immature Granulocyte Absolute 0.03 K/mm3 (0.00-0.031); Immature Granulocyte Percent A 0.3 % (0-0.5); Lymphocytes Percent Auto 29.1 % (18.3-44.2); Mean Corpuscular Hemoglobin 28.8 pg (26-34); Mean Corpuscular Volume 89.8 fl (80-100); Mean Platelet Volume 12.8 fl (7.4-10.4); Monocytes Absolute Auto 0.5 K/mm3 (0.1-0.6); Monocytes Percent Auto 5.8 % (2.6-8.5); Neutrophils Absolute Auto 5.2 K/mm3 (1.3-6.7); Neutrophils Percent Auto 60.1 % (45.5-73.1); Platelet Count Result 229 k/mm3 (150-375); Red Blood Count 4.52 M/mm3 (4.2-5.4); Red Cell Distribution Width 14.3 % (11.5-14.5); White Blood Count 8.6 K/mm3 (4.5-10.0)
[2023-11-04 17:31] LABS: Alanine Aminotransferase 19 U/L (6-35); Albumin Level 4.4 g/dL (3.5-5.1); Alkaline Phosphatase 85 U/L (38-126); Anion Gap 8 mmol/L (4-12); Aspartate Amino Transferase 38 U/L (14-36); Bilirubin,Total 0.6 mg/dL (0.2-1.3); Blood Urea Nitrogen 36 mg/dL (7-17); Calcium 10.5 mg/dL (8.4-10.2); Carbon Dioxide 28 mmol/L (22-30); Chloride 103 mmol/L (98-107); Cholesterol 159 mg/dL (0-200); Estimated Glomerular Filt Rate 37; Glucose 125 mg/dL (65-110); HDL Direct 55 mg/dL; Potassium 4.6 mmol/L (3.4-5.0); Sodium 139 mmol/L (137-145); Triglycerides 139 mg/dL (<150)
[2023-11-04 17:36] LABS: Anion Gap 6 mmol/L (4-12); Blood Urea Nitrogen 36 mg/dL (7-17); Calcium 10.3 mg/dL (8.4-10.2); Carbon Dioxide 29 mmol/L (22-30); Chloride 103 mmol/L (98-107); Estimated Glomerular Filt Rate 37; Glucose 124 mg/dL (65-110); Potassium 4.6 mmol/L (3.4-5.0); Sodium 138 mmol/L (137-145)
[2023-11-04 17:42] LABS: LDL Cholesterol Direct 73 mg/dL
[2023-11-04 17:53] LABS: Vitamin D 25 Hydroxy 33.7 ng/mL
[2023-11-04 18:20] LABS: Vitamin B12 > 1000.0 pg/mL (239-931)
[2023-11-04 23:22] LABS: Free T4 Free Thyroxine Reflex 1.36 ng/dL (0.78-2.19)
[2023-11-05 01:33] LABS: Total Triiodothyronine (T3) 0.96 NG/ML (0.97-1.69)
== END 2023-11-04 11:52 | disposition home or self-care (01) ==
PROVIDERS: Nurse Practitioner Family; PCP Family Medicine; Visit Provider Family Medicine
DX: E11.22 Type 2 diabetes mellitus with diabetic chronic kidney disease (principal); I12.9 Hypertensive chronic kidney disease with stage 1 through stage 4 chronic kidney disease, or unspecified chronic kidney disease; E53.8 Deficiency of other specified B group vitamins; E55.9 Vitamin D deficiency, unspecified; E03.9 Hypothyroidism, unspecified; Z00.00 Encounter for general adult medical examination without abnormal findings; E78.5 Hyperlipidemia, unspecified; I10 Essential (primary) hypertension; N18.9 Chronic kidney disease, unspecified
CPT/HCPCS: 36415; 80048; 80053; 80061; 82306; 82607; 84439; 84443; 84480; 85025

== ENCOUNTER 2023-11-22 09:26 | Outpatient (CLI) | payer MEDICARE, SELFPAY ==
[2023-11-22 19:48] LABS: Albumin Level 4.2 g/dL (3.5-5.1); Anion Gap 5 mmol/L (4-12); Blood Urea Nitrogen 33 mg/dL (7-17); Calcium 9.4 mg/dL (8.4-10.2); Carbon Dioxide 27 mmol/L (22-30); Chloride 104 mmol/L (98-107); Estimated Glomerular Filt Rate 37; Glucose 119 mg/dL (65-110); Phosphorus 3.6 mg/dL (2.5-4.5); Potassium 4.6 mmol/L (3.4-5.0); Sodium 136 mmol/L (137-145)
[2023-11-22 19:54] LABS: Parathyroid Intact 50.9 pg/mL (7.5-53.5)
[2023-11-22 20:02] LABS: Creatinine Urine 56.7 mg/dL; Total Protein Urine Random 10 mg/dL; Ur Ttl Prot Creatinine Ratio 0.18 mg/mg (0-0.20)
== END 2023-11-22 09:27 | disposition home or self-care (01) ==
LOC: ANHGOSHLAB 09:28
PROVIDERS: PCP Family Medicine; Visit Provider Internal Medicine Nephrology
DX: E55.9 Vitamin D deficiency, unspecified (principal); E11.22 Type 2 diabetes mellitus with diabetic chronic kidney disease; N25.81 Secondary hyperparathyroidism of renal origin; I12.9 Hypertensive chronic kidney disease with stage 1 through stage 4 chronic kidney disease, or unspecified chronic kidney disease; N18.32 Chronic kidney disease, stage 3b
CPT/HCPCS: 36415; 80069; 82570; 83970; 84156

== ENCOUNTER 2023-11-28 10:36 | Outpatient (CLI) | payer MEDICARE, SELFPAY ==
[2023-11-28 20:14] LABS: Anion Gap 5 mmol/L (4-12); Blood Urea Nitrogen 27 mg/dL (7-17); Calcium 9.8 mg/dL (8.4-10.2); Carbon Dioxide 28 mmol/L (22-30); Chloride 106 mmol/L (98-107); Estimated Glomerular Filt Rate 37; Glucose 112 mg/dL (65-110); Potassium 4.5 mmol/L (3.4-5.0); Sodium 139 mmol/L (137-145)
== END 2023-11-28 10:37 | disposition home or self-care (01) ==
PROVIDERS: PCP Family Medicine; Visit Provider Nurse Practitioner Family
DX: E83.52 Hypercalcemia (principal)
CPT/HCPCS: 36415; 80048

== ENCOUNTER 2023-12-20 14:30 | Outpatient (RCR) | payer MEDICARE, SELFPAY ==
--- NOTE | 2023-11-24 11:07 | PTOPEVAL1 ---
Assessment and note entered by Soham Riley, PT Evaluation Information Assessment Status Evaluation Diagnosis Bilateral knee pain, Unsteadiness Onset June 2023 Subjective Information Reports that she has mostly been having pain in the right knee. She gets some pain bilaterally. She reports a fall falls in July of this year and does have trouble getting around. Reports some morning stiffness but most pin is increased based on activity. She has a history of knee injuries when she was young which she feels have been contributing. She has since quit her walking program because it hurts too much. Reported Pain Level Pain Score 4: Self Report Assessment PT Clinical Summary Patient presents with weakness of zabrina hips and structural breakdown of zabrina lateral knees. This combination allowing for increased genu valgus causing joint and ligament stress. Will benefit from skilled therapy to address listed deficits to improve gait, functional mobility, and ADL performance for fpc knee health. Plan of Care Interventions Electrical Stimulation,Manual Therapy,Neuro Re- education,Therapeutic Activities,Therapeutic Exercise PT Services Indicated Yes Treatment Frequency and 2x/week for 8 visits Duration These treatments will address the objective and functional deficits as defined above. The patient will be advanced safely and appropriately in order for the patient to progress towards his/her prior level of function. Additional exercises will be introduced and as well as a comprehensive home exercise program upon discharge, if needed, ?to ensure carryover of functional gains achieved in the clinic. This treatment plan has been reviewed and agreement upon by the patient.
--- NOTE | 2023-11-24 11:07 | OPREHPOC ---
Outpatient Therapy Plan of Care This is a Multidisciplinary Plan of Care that may contain components documented by all disciplines (PT, OT, and ST.) PT Problem 1 PT Problem #1 Knowledge Deficit PT Goal 1 Goal [place] with HEP Target Visit 4 PT Problem 2 PT Problem #2 Impaired Range of Motion PT Goal 1 Goal Demonstrate terminal extension in bilateral knees Target Visit 8 PT Problem 3 PT Problem #3 Impaired Strength PT Goal 1 Goal Improve zabrina hip abduction strength t04/5 to improve lateral stability with gait and ADLs Target Visit 8 PT Problem 4 PT Problem #4 Impaired Range of Motion PT Goal 1 Goal Demonstrate 10+ degrees of zabrina ankle dorsiflexion to improve terminal stance of gait Target Visit 8
--- NOTE | 2023-12-20 15:27 | OPREHPOC ---
Outpatient Therapy Plan of Care This is a Multidisciplinary Plan of Care that may contain components documented by all disciplines (PT, OT, and ST.) PT Problem 1 PT Problem #1 Knowledge Deficit PT Goal 1 Goal [place] with HEP Target Visit 4 Progress Met Comment 12-20-23 progress met goal continue towards goal to progress HEP to include aquatic exercises PT Goal 2 Target Visit 14 PT Problem 2 PT Problem #2 Impaired Range of Motion PT Goal 1 Goal Demonstrate terminal extension in bilateral knees Target Visit 8 Progress Met Comment 12-20-23 progress met goal- discontinue PT Problem 3 PT Problem #3 Impaired Strength PT Goal 1 Goal Improve zabrina hip abduction strength t0 4/5 to improve lateral stability with gait and ADLs Target Visit 8 Progress Met Comment 12-20-23 progress met goal PT Goal 2 Goal New goal: 1* increase R and L hip abduction strength: side lying hip abduction with 3# ankle wt x 20 reps Target Visit 14 PT Problem 4 PT Problem #4 Impaired Range of Motion PT Goal 1 Goal Demonstrate 10+ degrees of zabrina ankle dorsiflexion to improve terminal stance of gait Target Visit 8 Progress Not Met Comment 12-20-23 progress goal not met continue towards goals PT Goal 2 Target Visit 14 PT Problem 5 PT Problem #5 Impaired Functional Mobil PT Goal 1 Goal 12-20-23 progress 1* 5 reps sit/stand time of 15 seconds 2* 2 minute walking test distance of 350' Target Visit 14
--- NOTE | 2023-12-20 15:27 | PTOPPROG ---
Assessment and note entered by Elli Pacheco, PT Progress report Information Assessment Status Progress Diagnosis Bilateral knee pain, Unsteadiness Onset June 2023 Subjective Information was sick over entire weekend--had a reaction to some lactose she ate and felt bad; with the storms and barometric pressure made her hurt more over her whole body; orthopedic surgeon will not do a TKR until she is under 200#, want to start fitness exercises to lose weight but cannot due to knee pain; have not had any falls, but unsteady sometimes with walking, not have as much side/side motion with walking; Assessment PT Clinical Summary Mariposa has received 8 PT sessions. Compared to the initial evaluation: pain rating of R knee is worse: from 0-8/10 to 2-9/10; self assessment with LE functional scale rating of 35% limitation is the same; increase knee extension active ROM to 0' bilateral in sitting; increase strength of hips and knees with mat exercises; 5 reps sit/stand time of 19 seconds and 2 minute walking test distance of 275'. Education for HEP and body mechanics. The goals were partially met. Continue PT. Treatment to include aquatic therapy for the buoyancy effects of the water and ease of motion. Plan of Care Interventions Aquatic Therapy,Gait Training,Therapeutic Activities,Therapeutic Exercise, pt education PT Services Indicated Yes Treatment Frequency and 2x/wk for 6 more visits Duration These treatments will address the objective and functional deficits as defined above. The patient will be advanced safely and appropriately in order for the patient to progress towards his/her prior level of function. Additional exercises will be introduced and as well as a comprehensive home exercise program upon discharge, if needed, ?to ensure carryover of functional gains achieved in the clinic. This treatment plan has been reviewed and agreement upon by the patient.
--- NOTE | 2023-12-26 08:57 | PCPTNOTE ---
pt called today and canceled appointments, want to hold PT due to family emergency--she will call when want to return
--- NOTE | 2024-02-08 13:44 | PCPTNOTE ---
PHYSICAL THERAPY DISCHARGE Mariposa has received 8 PT sessions, from November 23 to , for the diagnosis of bilateral knee pain, unsteadiness. She called on December 25 and canceled PT appointments due to a family emergency. And has not returned for any further treatments. Discharge PT. The goals were not addressed.
== END 2024-02-07 13:59 | disposition home or self-care (01) ==
LOC: ANHPT 14:30
PROVIDERS: PCP Family Medicine; Visit Provider Family Medicine
DX: M25.561 Pain in right knee (principal); M25.562 Pain in left knee; R26.81 Unsteadiness on feet; G89.29 Other chronic pain
CPT/HCPCS: 97110; 97116; 97140; 97161; 97530

== ENCOUNTER 2024-01-02 11:05 | Outpatient (CLI) | payer MEDICARE, SELFPAY ==
[2024-01-02 14:58] LABS: Basophils Absolute Auto 0.1 K/mm3 (0.0-0.1); Eosinophils Absolute Auto 0.5 K/mm3 (0-0.3); Eosinophils Percent Auto 5.9 % (0-4.4); Hematocrit 42.1 % (37.0-47.0); Immature Granulocyte Absolute 0.03 K/mm3 (0.00-0.031); Immature Granulocyte Percent A 0.3 % (0-0.5); Lymphocytes Absolute Auto 2.83 K/mm3 (0.9-3.2); Lymphocytes Percent Auto 32.3 % (18.3-44.2); Mean Corpuscular HGB Conc 30.9 g/dl (32-36); Mean Corpuscular Hemoglobin 28.4 pg (26-34); Mean Corpuscular Volume 91.9 fl (80-100); Monocytes Absolute Auto 0.7 K/mm3 (0.1-0.6); Monocytes Percent Auto 7.8 % (2.6-8.5); Neutrophils Absolute Auto 4.6 K/mm3 (1.3-6.7); Neutrophils Percent Auto 52.7 % (45.5-73.1); Platelet Count Result 228 k/mm3 (150-375); Red Blood Count 4.58 M/mm3 (4.2-5.4); Red Cell Distribution Width 13.3 % (11.5-14.5); White Blood Count 8.8 K/mm3 (4.5-10.0)
[2024-01-02 16:26] LABS: Anion Gap 7 mmol/L (4-12); Blood Urea Nitrogen 31 mg/dL (7-17); Calcium 9.3 mg/dL (8.4-10.2); Carbon Dioxide 27 mmol/L (22-30); Chloride 104 mmol/L (98-107); Estimated Glomerular Filt Rate 34; Glucose 125 mg/dL (65-110); Potassium 4.7 mmol/L (3.4-5.0); Sodium 138 mmol/L (137-145)
== END 2024-01-02 11:06 | disposition home or self-care (01) ==
LOC: ANHGOSHLAB 11:07
PROVIDERS: PCP Family Medicine; Visit Provider Internal Medicine Hematology & Oncology
DX: D64.9 Anemia, unspecified (principal)
CPT/HCPCS: 36415; 80048; 82607; 85025

== ENCOUNTER 2024-03-30 11:26 | Outpatient (CLI) | payer MEDICARE, SELFPAY ==
[2024-03-30 15:17] LABS: Anion Gap 7 mmol/L (4-12); Blood Urea Nitrogen 30 mg/dL (7-17); Calcium 9.1 mg/dL (8.4-10.2); Carbon Dioxide 28 mmol/L (22-30); Chloride 103 mmol/L (98-107); Estimated Glomerular Filt Rate 32; Glucose 95 mg/dL (65-110); Phosphorus 3.7 mg/dL (2.5-4.5); Potassium 4.4 mmol/L (3.4-5.0); Sodium 138 mmol/L (137-145)
[2024-03-30 15:19] LABS: Creatinine Urine 157.2 mg/dL; Total Protein Urine Random 34 mg/dL; Ur Ttl Prot Creatinine Ratio 0.22 mg/mg (0-0.20)
== END 2024-03-30 11:27 | disposition home or self-care (01) ==
PROVIDERS: PCP Family Medicine; Visit Provider Internal Medicine Nephrology
DX: E11.22 Type 2 diabetes mellitus with diabetic chronic kidney disease (principal); I12.9 Hypertensive chronic kidney disease with stage 1 through stage 4 chronic kidney disease, or unspecified chronic kidney disease; N18.32 Chronic kidney disease, stage 3b
CPT/HCPCS: 36415; 80069; 82570; 84156

== ENCOUNTER 2024-06-15 12:33 | Outpatient (CLI) | payer MEDICARE, SELFPAY ==
[2024-06-15 19:04] LABS: Alanine Aminotransferase 17 U/L (6-35); Albumin Level 4.1 g/dL (3.5-5.1); Alkaline Phosphatase 76 U/L (38-126); Anion Gap 7 mmol/L (4-12); Aspartate Amino Transferase 33 U/L (14-36); Bilirubin,Total 0.6 mg/dL (0.2-1.3); Blood Urea Nitrogen 23 mg/dL (7-17); Carbon Dioxide 30 mmol/L (22-30); Chloride 100 mmol/L (98-107); Cholesterol 145 mg/dL (0-200); Estimated Glomerular Filt Rate 37; Glucose 120 mg/dL (65-110); HDL Direct 44 mg/dL; Potassium 3.7 mmol/L (3.4-5.0); Sodium 137 mmol/L (137-145); Triglycerides 205 mg/dL (<150)
[2024-06-15 19:15] LABS: LDL Cholesterol Direct 53 mg/dL
[2024-06-15 19:20] LABS: Creatinine Urine 200.3 mg/dL
[2024-06-15 19:28] LABS: Free T4 Free Thyroxine 1.41 ng/mL (0.78-2.19)
[2024-06-15 19:50] LABS: Vitamin B12 > 1000.0 pg/mL (239-931)
[2024-06-15 19:55] LABS: MALB Creatinine Ratio 183.2 mg/g (0-30); Microalbumin Urine Random 366.9 mg/L (0-16.7)
== END 2024-06-15 12:34 | disposition home or self-care (01) ==
LOC: ANHGOSHLAB 12:34
PROVIDERS: PCP Family Medicine; Visit Provider Nurse Practitioner Family
DX: E03.9 Hypothyroidism, unspecified (principal); E11.9 Type 2 diabetes mellitus without complications; I12.9 Hypertensive chronic kidney disease with stage 1 through stage 4 chronic kidney disease, or unspecified chronic kidney disease; N18.30 Chronic kidney disease, stage 3 unspecified; E55.9 Vitamin D deficiency, unspecified
CPT/HCPCS: 36415; 80053; 80061; 82043; 82306; 82607; 84439; 84443

== ENCOUNTER 2024-07-16 14:43 | Emergency (ER) | payer MEDICARE, SELFPAY ==
--- NOTE | ~2024-07-16 | XR_ITS ---
XR chest 2V Ordering provider: Dolores Whipple NP History: 68 years Female with . Cough x 5 days . Comparison: July 28, 2023 FINDINGS: MEDIASTINUM: The cardiac silhouette is not enlarged. LUNGS: No infiltrates, effusions or pneumothorax. OTHER: No free air under the diaphragm. Degenerative changes of the spine. IMPRESSION: No acute cardiopulmonary pathology. Reviewed, dictated and finalized at location A. [facility] REPRES[facility]
--- NOTE | 2024-07-16 14:47 | ED_ITS ---
HPI - URI/Sore Throat General Chief Complaint: Upper Respiratory Infection Stated Complaint: Cough/Diarrhea/Congestion Time Seen by Provider: 07/16/24 15:03 Source: patient and RN notes reviewed Mode of arrival: ambulatory Limitations: no limitations History of Present Illness HPI Narrative: 68-year-old female with history of diabetes presents with concern for 3 day history of cough, diarrhea. Reports she was having nausea and vomiting which she has not vomited today or yesterday. She reports that she has been drinking fluids but not eating much food. MD elicited complaint: cough and other (Diarrhea) Related Data Home Medications ?Medication ?Instructions ?Recorded ?Confirmed ?Last Taken ?Type blood-glucose meter (OneTouch 06/05/21 06/14/24 Unknown History Verio Reflect Meter) lancets 33 gauge (OneTouch Delica 06/05/21 06/14/24 Unknown History Plus Lancet) vitamins A,C,S-[id number] 2,148 2 tablet PO BID 03/30/22 06/14/24 Unknown History mcg-113 mg-45 mg-17.4 mg tablet (PreserVision AREDS) acetaminophen 650 mg 650 mg PO .QD PRN 01/12/23 06/14/24 Unknown History tablet,extended release (Arthritis Pain Relief (acetaminophen) ER) magnesium oxide 400 mg (241.3 mg 250 mg PO BID 08/24/23 06/14/24 Unknown History magnesium) tablet mecobalamin (vitamin B12) 500 mcg mcg PO DAILY 12/12/23 06/14/24 Unknown History chewable tablet cholecalciferol (vitamin D3) 50 50 mcg PO DAILY 05/03/24 06/14/24 Unknown History mcg (2,000 unit) capsule Allergies Allergy/AdvReac Type Severity Reaction Status Date / Time hydrocortisone Allergy Mild TEARS Verified 07/16/24 14:54 STOMACH UP poison yemi extract Allergy Unknown Unknown Verified 07/16/24 14:54 povidone Allergy Unknown Unknown Verified 07/16/24 14:54 povidone-iodine Allergy Unknown RASH Verified 07/16/24 14:54 soap Allergy Unknown Unknown Verified 07/16/24 14:54 Sulfa (Sulfonamide Allergy Unknown Unknown Verified 07/16/24 14:54 Antibiotics) sulfanilamide Allergy Unknown Unknown Verified 07/16/24 14:54 talc Allergy Unknown Unknown Verified 07/16/24 14:54 fluconazole (From Diflucan) Allergy Rash Verified 07/16/24 14:54 cetirizine (From Zyrtec) AdvReac Severe leg cramps Verified 07/16/24 14:54 empagliflozin (From AdvReac Mild Rash Verified 07/16/24 14:54 Jardiance) lactose AdvReac Mild Unknown Verified 07/16/24 14:54 lisinopril AdvReac Mild Cough Verified 07/16/24 14:54 semaglutide (From Rybelsus) AdvReac Mild Nausea Verified 07/16/24 14:54 avocado Allergy Unknown Rash Uncoded 06/14/24 10:54 Review of Systems Review of Systems: CONSTITUTIONAL: Denies malaise, chills, sweats, or fever. EYES: Denies visual changes, redness, or discharge. ENT: Reports rhinorrhea, congestion CARDIOVASCULAR: Denies chest pain, palpitations, or edema. RESPIRATORY: Reports cough. Denies dyspnea. GASTROINTESTINAL: Denies abdominal pain, nausea, current vomiting. Reports diarrhea SKIN: Denies rash or itching. MUSCULOSKELETAL: Denies myalgia. NEUROLOGIC: Denies headache. 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 Environmental allergies Essential hypertension Hypomagnesemia Hypothyroidism, unspecified Insomnia Lung nodule Osteoarthritis Osteoarthritis of right knee Pneumonia 06/2020 Retinopathy Shingles (~02/2023) Stage 3b chronic kidney disease Type 2 diabetes mellitus without complications Vitamin D deficiency Wears glasses Surgical History Surgical History History of carpal tunnel release of both wrists [id number] History of hand surgery (~1993) b/l - Multiple surgeries 1993, 2003 History of thoracentesis 06/2020 - Right loculated pleural effusion Family History Family History Father Hypertension Malignant neoplasm of prostate Family history of obesity Family history of cataracts Family history of congestive heart failure Mother Family history of hypothyroidism Family history of heart disease in male family member before age 55 Family history of obesity Family history of lung disease Family history of hearing loss Grandparent Family history of thyroid disease Family history of obesity Cerebrovascular accident Family history of arthritis Family history of congestive heart failure Diabetes mellitus Sibling Family history of malignant neoplasm of brain Family history of malignant neoplasm of kidney Family history of heart disease in male family member before age 55 Other Family history of cardiovascular disease Family history of lung cancer Family history of malignant neoplasm Neuropathy Social History Social History Smoking packs per day: 0.15 Smoking cigarettes per day: 3.0 Years smoked: 3 Smoking pack-years: 0.45 Smoking status: Former smoker Tobacco type: cigarettes Second hand tobacco smoke exposure: No Smoking end date: 09/23/75 Additional smoking assessment comments: smoked [id number] per [place] Alcohol intake: current Alcohol use details: special occasions Substance use: never Substance use type: does not use Do You Feel Safe in your Home?: Yes Lack of Transportation: No Lack of Food: Never True Current Housing: I Have Housing Concerned About Future Housing: No Difficulty Paying Gas/Electric Bills: No Difficulty Paying for Meds: No Currently Unemployed: No Education: Master's Degree or Higher Difficulty w/ Childcare or Family Care: No Living arrangements: with family Additional living arrangements comments: spouse Occupation/Education: retired 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 There is no relevant family history pertinent to the presenting complaint Exam Narrative: GENERAL: Well-appearing, well-nourished, and in no acute distress. HEAD: Normocephalic EYES: PERRLA, conjunctivae clear ENT: Nares clear. Mucous membranes moist. TM pearly cole with dull light reflex bilaterally; no tragal tenderness. Oropharynx not erythematous without lesions. Tonsils not enlarged and without exudate, no drooling, no hoarseness, no trismus, uvula midline. NECK: Supple. No lymphadenopathy CHEST: Clear to auscultation, breath sounds equal. No wheezing, rhonchi, rales, or stridor. No respiratory distress, speaks in full sentences. HEART: Regular rate and rhythm. No murmur heard. SKIN: Warm, dry, no rash. NEURO: Alert and oriented x3. PSYCH: Normal mood and affect Course Course Emergency Course: Patient is aware of diagnosis, understands and agrees to treatment plan. Anticipatory guidance given. Patient agrees to follow-up as directed and is aware of reasons to seek care at the emergency department. Portions of this record may have been created with voice recognition software Level of Care: Express Care Visit Vital Signs Vital signs: Reviewed. MDM - URI/Sore Throat MDM Narrative Medical decision making narrative: Differential diagnosis considered: Dumont virus, strep pharyngitis, allergic rhinitis, upper respiratory tract infection, sinusitis, rhinosinusitis, nasopharyngitis. viral pharyngitis, otitis media, otitis externa, pneumonia, bronchitis, viral cough syndrome, viral syndrome, and influenza. Exam findings show no acute concerns or changes; patient is non-toxic appearing and is in no distress. Patient is appropriate for outpatient treatment and follow-up. Lab Data Attestation: I reviewed the patient's lab results. Critical Care Time Critical Care Time Critical Care Time: No Discharge Plan Discharge Clinical Impression: Acute viral syndrome Patient Disposition: Home, Self-Care Condition: Stable Instructions: Acute Diarrhea (ED) Additional Instructions: Your chest x-ray is normal, you do not have pneumonia Your symptoms are likely caused by a virus Stay hydrated. Take small sips of fluid containing electrolytes frequently. You should go to the hospital if you experience return of persistent nausea and vomiting that does not resolve and does not allow you to tolerate any food or fluids, persistent fevers for greater than 2-3 more days, increasing abdominal pain that persists despite medications, persistent diarrhea, dizziness, syncope (fainting), or for any other concerns. Please make a follow-up appoint with your primary care provider in the next 2-3 days. Patient Language: Moroccan Prescriptions: New promethazine-DM 6.25-15 mg/5 mL syrup 5 ml PO Q4-6H PRN (Reason: cough) Qty: 120 0RF No Action cholecalciferol (vitamin D3) 50 mcg (2,000 unit) capsule 50 mcg PO DAILY acetaminophen [Arthritis Pain Relief (acetam)] 650 mg tablet extended release 650 mg PO .QD PRN (DME) pen needle, diabetic [BD Ultra-Fine Short Pen Needle] 31 gauge x 5/16 needle See Rx Instructions .ROUTE .MEDSUPPLY Qty: 400 1RF Rx Instructions: Use with insulin injections 4 times daily mecobalamin (vitamin B12) 500 mcg tablet,chewable PO DAILY Rx Instructions: takes 5 days per week magnesium oxide 400 mg (241.3 mg magnesium) tablet 250 mg PO BID (DME) blood-glucose meter [OneTouch Verio Reflect Meter] Misc See Rx Instructions .Route Rx Instructions: Take BS QID (DME) lancets [PartSimpleTouch Delica Plus Lancet] 33 gauge misc See Rx Instructions .Route Rx Instructions: As directed PreserVision AREDS 2,148 mcg-113 mg-45 mg-17.4mg tablet 2 tablet PO BID Rx Instructions: administer with AM and PM meals (DME) OneTouch Verio test strips Strip See Rx Instructions .ROUTE .COMPLEX Qty: 100 3RF Dose Instruction: USE TO CHECK BLOOD SUGARS TWICE DAILY Rx Instructions: USE TO CHECK BLOOD SUGARS TWICE DAILY albuterol sulfate [Ventolin HFA] 90 mcg/actuation HFA aerosol inhaler 1 puff INHALATION Q4H PRN (Reason: Shortness Of Breath) Qty: 8.5 5RF furosemide 20 mg tablet See Rx Instructions .ROUTE .COMPLEX Qty: 45 1RF Dose Instruction: TAKE ONE-HALF TABLET BY MOUTH DAILY Rx Instructions: TAKE ONE-HALF TABLET BY MOUTH every other day amlodipine 5 mg tablet 5 mg PO DAILY Qty: 90 1RF losartan 100 mg tablet 100 mg PO DAILY Qty: 90 1RF carvedilol 6.25 mg tablet 6.25 mg PO Q12H Qty: 180 1RF Rx Instructions: must administer with a meal/food insulin aspart U-100 [Novolog FlexPen U-100 Insulin] 100 unit/mL (3 mL) insulin pen 6 unit subcut TIDWMEAL Qty: 15 0RF insulin degludec [Tresiba FlexTouch U-100] 100 unit/mL (3 mL) insulin pen 20 unit subcut DAILY Qty: 30 1RF Kerendia 10 mg tablet 10 mg PO DAILY Qty: 90 1RF levothyroxine 100 mcg tablet 100 mcg PO DAILY 90 Days Qty: 90 1RF simvastatin 20 mg tablet 20 mg PO QHS Qty: 90 1RF Rx Instructions: TAKE 1 TABLET BY MOUTH AT BEDTIME Follow-up/Referrals: Anjel Knapp MD [Primary Care Provider] - Time of Disposition: 15:36
[2024-07-16 14:56] VITALS: BP 148/59; PULSE 62; RESP 16; TEMP 37.4; O2SAT 100
[2024-07-16 15:24] LABS: EDCOVIDSCREEN Negative (Negative); EDINFLUASCREEN Negative (Negative); EDINFLUBSCREEN Negative (Negative)
== END 2024-07-16 15:40 | disposition home or self-care (01) ==
PROVIDERS: Emergency Provider Nurse Practitioner; PCP Family Medicine
DX: B34.9 Viral infection, unspecified (principal); I12.9 Hypertensive chronic kidney disease with stage 1 through stage 4 chronic kidney disease, or unspecified chronic kidney disease; E11.22 Type 2 diabetes mellitus with diabetic chronic kidney disease; N18.30 Chronic kidney disease, stage 3 unspecified; Z20.822 Contact with and (suspected) exposure to COVID-19; Z87.891 Personal history of nicotine dependence
CPT/HCPCS: 71046; 87426; 87804; 99213; G0463

== ENCOUNTER 2024-07-23 13:40 | Outpatient (CLI) | payer MEDICARE, SELFPAY ==
[2024-07-23 21:51] LABS: Albumin Level 4.2 g/dL (3.5-5.1); Anion Gap 4 mmol/L (4-12); Blood Urea Nitrogen 14 mg/dL (7-17); Calcium 9.3 mg/dL (8.4-10.2); Carbon Dioxide 29 mmol/L (22-30); Chloride 102 mmol/L (98-107); Estimated Glomerular Filt Rate 34; Glucose 113 mg/dL (65-110); Phosphorus 2.7 mg/dL (2.5-4.5); Potassium 4.4 mmol/L (3.4-5.0); Sodium 135 mmol/L (137-145)
[2024-07-23 22:01] LABS: Parathyroid Intact 66.3 pg/mL (14.5-75.2)
[2024-07-23 22:23] LABS: Vitamin D 25 Hydroxy 38.6 ng/mL
== END 2024-07-23 13:41 | disposition home or self-care (01) ==
LOC: ANHGOSHLAB 13:40
PROVIDERS: PCP Family Medicine; Visit Provider Internal Medicine Nephrology
DX: E11.22 Type 2 diabetes mellitus with diabetic chronic kidney disease (principal); I12.9 Hypertensive chronic kidney disease with stage 1 through stage 4 chronic kidney disease, or unspecified chronic kidney disease; N18.32 Chronic kidney disease, stage 3b; N25.81 Secondary hyperparathyroidism of renal origin; E55.9 Vitamin D deficiency, unspecified
CPT/HCPCS: 36415; 80069; 82306; 83970

== ENCOUNTER 2024-07-24 09:17 | Outpatient (NON) | payer MEDICARE, SELFPAY ==
[2024-07-24 12:48] LABS: Creatinine Urine 179.8 mg/dL; Total Protein Urine Random 22 mg/dL; Ur Ttl Prot Creatinine Ratio 0.12 mg/mg (0-0.20)
== END 2024-07-24 09:18 | disposition home or self-care (01) ==
PROVIDERS: PCP Family Medicine; Visit Provider Family Medicine
DX: I21.9 Acute myocardial infarction, unspecified (principal); N18.32 Chronic kidney disease, stage 3b; N25.81 Secondary hyperparathyroidism of renal origin; E55.9 Vitamin D deficiency, unspecified
CPT/HCPCS: 82570; 84156

== ENCOUNTER 2024-08-24 13:36 | Emergency (ER) | payer MEDICARE, SELFPAY ==
--- NOTE | ~2024-08-24 | XR_ITS ---
EXAMINATION: XR shoulder LT min 2V DATE: 08/24/2024 14:25 INDICATION: Left shoulder pain post fall 3 days prior TECHNIQUE: AP internally and externally rotated, AP oblique externally rotated and transscapular Y vi ews of the left shoulder were obtained. COMPARISON: None FINDINGS: Small nondisplaced supraspinatus tendon avulsion fracture involving the superior facet of the greater tuberosity. Alignment remains essentially anatomic. No other fractures identified. Moderate left acr omioclavicular osteoarthritis. Glenoid humeral joint space is normal. Soft tissues are unremarkable. Visualized portion of the lungs are clear. IMPRESSION: Small nondisplaced supraspinatus tendon avulsion fracture involving the superior facet of the greater tuberosity. Reviewed, dictated and finalized at location B. 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
[2024-08-24 13:53] VITALS: BP 124/66; PULSE 71; RESP 16; TEMP 37.2; O2SAT 100
--- NOTE | 2024-08-24 14:01 | ED.FALL ---
HPI - Fall General Chief Complaint: Extremity Injury, Upper Stated Complaint: FALL Time Seen by Provider: 08/24/24 13:40 Source: patient Mode of arrival: ambulatory Limitations: no limitations History of Present Illness HPI Narrative: Patient is a 68-year-old female who presents with left shoulder, left upper arm and the top of her left hand hurting after fall 3 days ago. Patient states she fell onto her buttocks and rolled onto her left side. Reports pain is 3/10. Denies hitting head on the fall. Patient reports it is painful to lift arm straight forward and to the side. Related Data Home Medications ?Medication ?Instructions ?Recorded ?Confirmed ?Last Taken ?Type blood-glucose meter (OneTouch 06/05/21 08/06/24 Unknown History Verio Reflect Meter) lancets 33 gauge (OneTouch Delica 06/05/21 08/06/24 Unknown History Plus Lancet) vitamins A,C,G-qfpd-blhxja 2,148 2 tablet PO BID 03/30/22 08/24/24 Unknown History mcg-113 mg-45 mg-17.4 mg tablet (PreserVision AREDS) acetaminophen 650 mg 650 mg PO .QD PRN pain 01/12/23 08/24/24 Unknown History tablet,extended release (Arthritis Pain Relief (acetaminophen) ER) magnesium oxide 400 mg (241.3 mg 250 mg PO BID 08/24/23 08/24/24 Unknown History magnesium) tablet mecobalamin (vitamin B12) 500 mcg 500 mcg PO DAILY 12/12/23 08/24/24 Unknown History chewable tablet cholecalciferol (vitamin D3) 50 50 mcg PO DAILY 05/03/24 08/24/24 Unknown History mcg (2,000 unit) capsule Allergies Allergy/AdvReac Type Severity Reaction Status Date / Time hydrocortisone Allergy Mild TEARS Verified 08/24/24 13:48 STOMACH UP poison yemi extract Allergy Unknown Unknown Verified 08/24/24 13:48 povidone Allergy Unknown Unknown Verified 08/24/24 13:48 povidone-iodine Allergy Unknown RASH Verified 08/24/24 13:48 soap Allergy Unknown Unknown Verified 08/24/24 13:48 Sulfa (Sulfonamide Allergy Unknown Unknown Verified 08/24/24 13:48 Antibiotics) sulfanilamide Allergy Unknown Unknown Verified 08/24/24 13:48 talc Allergy Unknown Unknown Verified 08/24/24 13:48 fluconazole (From Diflucan) Allergy Rash Verified 08/24/24 13:48 cetirizine (From Zyrtec) AdvReac Severe leg cramps Verified 08/24/24 13:48 empagliflozin (From AdvReac Mild Rash Verified 08/24/24 13:48 Jardiance) lactose AdvReac Mild Unknown Verified 08/24/24 13:48 lisinopril AdvReac Mild Cough Verified 08/24/24 13:48 semaglutide (From Rybelsus) AdvReac Mild Nausea Verified 08/24/24 13:48 avocado Allergy Unknown Rash Uncoded 08/24/24 13:48 Review of Systems Review of Systems: All systems reviewed & are unremarkable except as noted in HPI and below Constitutional: Constitutional: Denies body ache(s), Denies chills, Denies fatigue, Denies fever(s), Denies headache(s), Denies malaise and Denies weakness Eyes: Eyes: Denies blurry vision, Denies irritation and Denies loss of vision ENT: Denies otalgia, Denies headache(s), Denies nasal discharge, Denies sinus pain and Denies sore throat Cardiovascular: Cardiovascular: Denies chest pain, Denies irregular heart rhythm and Denies dyspnea Respiratory: Respiratory: Denies dyspnea Gastrointestinal: Gastrointestinal: Denies abdominal pain, Denies melena, Denies hematochezia, Denies diarrhea, Denies nausea and Denies vomiting Musculoskeletal: Musculoskeletal: Denies back pain, Denies myalgias and Reports arthralgias Integumentary/Breasts: Skin/Breast: Denies pruritus and Denies rash Neurologic: Denies headache(s), Denies loss of vision and Denies weakness Psychiatric: Psychiatric: Reports no additional psychiatric complaints Endocrine: Endocrine: Denies fatigue PMFSH Past Medical History Medical History Chronic pain of both knees Osteoarthritis Stage 3b chronic kidney disease Shingles (~02/2023) CKD (chronic kidney disease) stage 3, GFR 30-59 ml/min Lung nodule 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 Retinopathy Bilateral primary osteoarthritis of knee Osteoarthritis of right knee Wears glasses BMI greater than 40 Degenerative joint disease of knee Diverticulitis of sigmoid colon (~10/2021) Type 2 diabetes mellitus without complications Hypomagnesemia Insomnia De Quervain's tenosynovitis, bilateral Dyslipidemia Vitamin D deficiency Environmental allergies Pneumonia 06/2020 Hypothyroidism, unspecified Essential hypertension Asthma Surgical History Surgical History History of carpal tunnel release of both wrists [id number] History of thoracentesis 06/2020 - Right loculated pleural effusion History of hand surgery (~1993) b/l - Multiple surgeries 2003 Family History Family History Father Hypertension Malignant neoplasm of prostate Family history of obesity Family history of cataracts Family history of congestive heart failure Mother Family history of hypothyroidism Family history of heart disease in male family member before age 55 Family history of obesity Family history of lung disease Family history of hearing loss Grandparent Family history of thyroid disease Family history of obesity Cerebrovascular accident Family history of arthritis Family history of congestive heart failure Diabetes mellitus Sibling Family history of malignant neoplasm of brain Family history of malignant neoplasm of kidney Family history of heart disease in male family member before age 55 Other Family history of cardiovascular disease Family history of lung cancer Family history of malignant neoplasm Neuropathy Social History Social History Smoking packs per day: 0.15 Smoking cigarettes per day: 3.0 Years smoked: 3 Smoking pack-years: 0.45 Smoking status: Former smoker Tobacco type: cigarettes Second hand tobacco smoke exposure: No Smoking end date: 09/23/75 Additional smoking assessment comments: smoked [id number] per [place] Alcohol intake: current Alcohol use details: special occasions Substance use: never Substance use type: does not use Do You Feel Safe in your Home?: Yes Lack of Transportation: No Lack of Food: Never True Current Housing: I Have Housing Concerned About Future Housing: No Difficulty Paying Gas/Electric Bills: No Difficulty Paying for Meds: No Currently Unemployed: No Education: Master's Degree or Higher Difficulty w/ Childcare or Family Care: No Living arrangements: with family Additional living arrangements comments: spouse Occupation/Education: retired Additional occupation/education comments: [employer] Gender identity (if verbalized by the patient): Female Sexual Orientation (if Verbalized by the Patient): Straight or Heterosexual Spiritual care concerns: No Comments At time of signature, agree with nursing past medical, surgical, social and family history. There is no relevant family history pertinent to the presenting complaint. Exam Const: General: cooperative, healthy appearing, comfortable, no acute distress and well nourished Nutritional Appearance: well nourished Orientation/consciousness: patient oriented x3 Limitations: no limitations HENMT: Head: normal to inspection, normocephalic and atraumatic Ears: hearing grossly normal bilaterally and external ears normal Face/Nose/Sinus: Normal external nose present, normal facial exam and face symmetric Face and sinus: normal facial exam and face symmetric Mouth: Yes lip normal Eyes: General: appearance normal, both eyes and all related structures Alignment and Position: alignment normal and position normal Periorbital: periorbital findings normal Eyelids: eyelids normal Pupils: Equal, round and reactive pupils present EOM: EOMs intact bilaterally Neck: Neck: normal visual inspection, full ROM and supple Chest: Chest palpation & inspection: normal inspection of the chest Resp: Effort & Inspection: normal respiratory effort and able to speak in complete sentences Auscultation: clear to auscultation bilaterally Cardio: Rate: regular rate Rhythm: regular rhythm Heart sounds: S1 normal heart sound present and S2 normal heart sound present GI: Inspection: normal to inspection Skin: General skin exam: normal color and no rashes or lesions noted Neuro: General: patient oriented x3 and moves all extremities Cranial nerves: Yes Equal, round and reactive pupils present Speech: normal speech Gait exam (Neuro): Normal gait present Extrem: General: normal to inspection, full ROM and no edema Left upper extremity: shoulder/upper arm tenderness of the clavicle laterally and of the A-C joint (anterior) and abnormal ROM pain with active ROM in ABduction and in flexion; but not in extension; no swelling, no ecchymosis, no deformity and no unsual warmth and elbow/forearm normal to inspection, normal ROM and distal pulses intact; no tenderness, no swelling and no ecchymosis Psych: Appearance: grossly normal and well kempt Mental Status: mental status grossly normal Speech and movement: Normal speech and movement present Affect: normal affect Attitude: cooperative Thought process: Normal thought process present Course Course Emergency Course: Patient is aware of diagnosis, understands and agrees to treatment plan. Anticipatory guidance given. Patient agrees to follow-up as directed and is aware of reasons to seek care at the emergency department. Portions of this record may have been created with voice recognition software Level of Care: Express Care Visit Vital Signs Vital signs: Vital Signs Temperature 37.2 C 08/24/24 13:53 Pulse Rate 71 08/24/24 13:53 Respiratory Rate 16 08/24/24 13:53 Blood Pressure 124/66 08/24/24 13:53 Pulse Oximetry 100 08/24/24 13:53 Temperature 37.2 C 08/24/24 13:53 Pulse Rate 71 08/24/24 13:53 Respiratory Rate 16 08/24/24 13:53 Blood Pressure 124/66 08/24/24 13:53 Pulse Oximetry 100 08/24/24 13:53 Reviewed MDM - Fall MDM Narrative Medical decision making narrative: Offered patient sling for fracture. Patient states they have 1 at home that they just got last month. Patient refused sling. Pt well hydrated appearing, in no respiratory distress, hemodynamically stable. Recommend supportive care. The patient is stable at time of discharge the clinical impression was discussed and the patient was given the opportunity to ask questions, which were addressed as completely as possible given the information available at present. Anticipatory guidance and return to care precautions were discussed and the importance of primary care follow-up was stressed and encouraged. The patient voiced understanding of the plan, indications to return, and the need for follow-up. Exam findings show no acute concerns or changes Patient is appropriate for outpatient treatment and follow-up. Differential Diagnosis Differential diagnosis: Likely dislocation of shoulder region and other (Shoulder fracture, shoulder strain) Medical Records Attestation: I reviewed the patient's medical records. Imaging Data Radiologist's impression: EXAMINATION: XR shoulder LT min 2V DATE: 08/24/2024 14:25 INDICATION: Left shoulder pain post fall 3 days prior TECHNIQUE: AP internally and externally rotated, AP oblique externally rotated and transscapular Y views of the left shoulder were obtained. COMPARISON: None FINDINGS: Small nondisplaced supraspinatus tendon avulsion fracture involving the superior facet of the greater tuberosity. Alignment remains essentially anatomic. No other fractures identified. Moderate left acromioclavicular osteoarthritis. Glenoid humeral joint space is normal. Soft tissues are unremarkable. Visualized portion of the lungs are clear. IMPRESSION: Small nondisplaced supraspinatus tendon avulsion fracture involving the superior facet of the greater tuberosity Discharge Plan Discharge Clinical Impression: Fracture of shoulder Qualifiers: Encounter type: initial encounter Fracture type: closed Laterality: left Qualified Code(s): S42.92XA - Fracture of left shoulder girdle, part unspecified, initial encounter for closed fracture Patient Disposition: Home, Self-Care Condition: Stable Instructions: Avulsion Fracture (ED) Additional Instructions: Xray showed small avulsion fracture Minimize activities that aggravate the condition The RICE protocol. Follow the RICE protocol as soon as possible after your injury:. Elevate your arm above the level of your heart as often as possible during the first 48 hours. Use sling Medication: Nonsteroidal anti-inflammatory drugs (NSAIDs) such as ibuprofen and naproxen can help control pain and swelling. Because they improve function by both reducing swelling and controlling pain, they are a better option for mild sprains than narcotic pain medicines. Please schedule a follow-up visit ortho in 2-3 days Patient Language: [place] Prescriptions: No Action cholecalciferol (vitamin D3) 50 mcg (2,000 unit) capsule 50 mcg PO DAILY acetaminophen [Arthritis Pain Relief (acetam)] 650 mg tablet extended release 650 mg PO .QD PRN (Reason: pain) (DME) pen needle, diabetic [BD Ultra-Fine Short Pen Needle] 31 gauge x 5/16 needle See Rx Instructions .ROUTE .MEDSUPPLY Qty: 400 1RF Rx Instructions: Use with insulin injections 4 times daily mecobalamin (vitamin B12) 500 mcg tablet,chewable 500 mcg PO DAILY Rx Instructions: takes 5 days per week magnesium oxide 400 mg (241.3 mg magnesium) tablet 250 mg PO BID montelukast [Singulair] 10 mg tablet 10 mg PO DAILY Qty: 90 0RF (DME) blood-glucose meter [OneTouch Verio Reflect Meter] Misc See Rx Instructions .Route Rx Instructions: Take BS QID (DME) lancets [OneTouch Delica Plus Lancet] 33 gauge misc See Rx Instructions .Route Rx Instructions: As directed PreserVision AREDS 2,148 mcg-113 mg-45 mg-17.4mg tablet 2 tablet PO BID Rx Instructions: administer with AM and PM meals (DME) OneTouch Verio test strips Strip See Rx Instructions .ROUTE .COMPLEX Qty: 100 3RF Dose Instruction: USE TO CHECK BLOOD SUGARS TWICE DAILY Rx Instructions: USE TO CHECK BLOOD SUGARS TWICE DAILY albuterol sulfate [Ventolin HFA] 90 mcg/actuation HFA aerosol inhaler 1 puff INHALATION Q4H PRN (Reason: Shortness Of Breath) Qty: 8.5 5RF amlodipine 5 mg tablet 5 mg PO DAILY Qty: 90 1RF losartan 100 mg tablet 100 mg PO DAILY Qty: 90 1RF carvedilol 6.25 mg tablet 6.25 mg PO Q12H Qty: 180 1RF Rx Instructions: must administer with a meal/food insulin degludec [Tresiba FlexTouch U-100] 100 unit/mL (3 mL) insulin pen 20 unit subcut DAILY Qty: 30 1RF Kerendia 10 mg tablet 10 mg PO DAILY Qty: 90 1RF levothyroxine 100 mcg tablet 100 mcg PO DAILY 90 Days Qty: 90 1RF simvastatin 20 mg tablet 20 mg PO QHS Qty: 90 1RF Rx Instructions: TAKE 1 TABLET BY MOUTH AT BEDTIME amoxicillin-pot clavulanate 875-125 mg tablet 1 tablet PO BID Qty: 14 0RF furosemide 20 mg tablet See Rx Instructions .ROUTE .COMPLEX Qty: 24 3RF Dose Instruction: TAKE ONE-HALF TABLET BY MOUTH EVERY OTHER DAY Rx Instructions: TAKE ONE-HALF TABLET BY MOUTH EVERY OTHER DAY insulin aspart U-100 [Novolog FlexPen U-100 Insulin] 100 unit/mL (3 mL) insulin pen 6 unit subcut TIDWMEAL Qty: 15 1RF Follow-up/Referrals: Anjel Knapp MD [Primary Care Provider] - Oliver Quinonez MD [Physician] - 3 Days (EXAMINATION: XR shoulder LT min 2V DATE: 08/24/2024 14:25 INDICATION: Left shoulder pain post fall 3 days prior TECHNIQUE: AP internally and externally rotated, AP oblique externally rotated and transscapular Y views of the left shoulder were obtained. COMPARISON: None FINDINGS: Small nondisplaced supraspinatus tendon avulsion fracture involving the superior facet of the greater tuberosity. Alignment remains essentially anatomic. No other fractures identified. Moderate left acromioclavicular osteoarthritis. Glenoid humeral joint space is normal. Soft tissues are unremarkable. Visualized portion of the lungs are clear. IMPRESSION: Small nondisplaced supraspinatus tendon avulsion fracture involving the superior facet of the greater tuberosity) Time of Disposition: 14:43
== END 2024-08-24 14:51 | disposition home or self-care (01) ==
PROVIDERS: Emergency Provider Nurse Practitioner Family; PCP Family Medicine
DX: S42.255A Nondisplaced fracture of greater tuberosity of left humerus, initial encounter for closed fracture (principal); W19.XXXA Unspecified fall, initial encounter; Z87.891 Personal history of nicotine dependence; I12.9 Hypertensive chronic kidney disease with stage 1 through stage 4 chronic kidney disease, or unspecified chronic kidney disease; E11.22 Type 2 diabetes mellitus with diabetic chronic kidney disease; N18.32 Chronic kidney disease, stage 3b; Z79.4 Long term (current) use of insulin; E78.5 Hyperlipidemia, unspecified; E03.9 Hypothyroidism, unspecified; J45.909 Unspecified asthma, uncomplicated; M17.11 Unilateral primary osteoarthritis, right knee; E55.9 Vitamin D deficiency, unspecified
CPT/HCPCS: 73030; 99213; A4565; G0463

== ENCOUNTER 2024-10-10 14:19 | Outpatient (CLI) | payer MEDICARE, SELFPAY ==
--- OUTSIDE RECORDS SUMMARY | 2024-10-10 16:01 | XMS_ITS | Clinical Summary ---
Author Organization [facility] Address [facility] [place] [address] Care Team Providers Care Managing Attorney Name Role Phone Arin Knapp MD Primary Care Provider Allergies Active Allergy Reactions Criticality Noted Date Comments Betadine Surgi-Prep Hives Medium 08/09/2020 Hydrocortisone Stomach upset Low 07/19/2020 Lactose Diarrhea Low 06/14/2022 Other Rash,Stomach upset Medium 07/19/2020 Rash Stomach/GI Upset Poison Sumaya Extract Hives High 03/05/2016 Povidone Hives Medium 06/14/2022 Povidone Analogues Hives Medium 03/05/2016 Sulfa (Sulfonamide Antibiotics) Hives,Rash Medium 03/05/2016 Talc Hives High 03/05/2016 Medications fluticasone propionate (FLONASE) 50 mcg/actuation nasal spray 12/20/19 19 Active furosemide (LASIX) 20 mg tablet 12/02/19 19 Active NOVOLOG FLEXPEN U-100 INSULIN 100 unit/mL (3 mL) insulin pen 11/09/19 19 Active insulin lispro (HumaLOG, ADMELOG) 100 unit/mL vial for injection 24 unit at night During the day can take up 6 units up to 3 times a day 04/16/20 16 Active levothyroxine (SYNTHROID, LEVOTHROID) 100 mcg tablet 12/02/19 19 Active BD ULTRA-FINE SHORT PEN NEEDLE 31 gauge x 12/07 needle 11/08/19 19 Active metFORMIN (GLUCOPHAGE) 500 mg tabletIndication s:type 2 diabetes mellitus Take 1 tablet (500 mg total) by mouth 2 (two) times a day Active TOBRAMYCIN-DEXAM ETHASONE OPHTIndications: Burning caused by Hydrofluoric Acid Administer 1 drop into both eyes daily as needed (itching burning). Indications: burning caused by hydrofluoric acid Active lactase (DAIRY DIGESTIVE SUPPLEMENT ORAL)Indications :Lactose Intolerance Take 1 Package by mouth daily as needed (with lactose). Indications: inability of body to handle lactose or milk sugar Active simvastatin (ZOCOR) 20 mg tabletIndication s:hyperlipidemia Take 1 tablet (20 mg total) by mouth nightly Active cholecalciferol (VITAMIN D-3) 2000 unit capsuleIndicatio ns:Vitamin D Deficiency Take 1 capsule (2,000 Units total) by mouth daily Active carvediloL (COREG) 3.125 mg tablet Take 1 tablet (3.125 mg total) by mouth every 12 (twelve) hours 08/04/19 21 Active magnesium oxide (MAG-OX) 400 mg (241.3 mg elemental magnesium) tablet Take 1 tablet (400 mg total) by mouth 2 (two) times a day 08/19/19 21 Active xqkctbnvs-JU-VU- acetaminoph-GG 5-325-200 mg (day-night) tablets, sequential Take by mouth Activ e LEVEMIR 100 unit/mL (3 mL) pen for injection 11/02/19 21 Active blood-glucose meter [facility] Active blood glucose diagnostic strip One touch Act pritesh UNABLE TO FIND Touch Delica Plus needles Active losartan (COZAAR) 50 mg tablet 07/22/20 21 Active Euflexxa 10 mg/mL(mw 2.4 -3.6 million) syringe 01/29/20 22 Active cyanocobalamin (Vitamin B-12) 1,000 mcg tabletIndication s:Prevention of Vitamin B12 Deficiency Take 1 tablet (1,000 mcg total) by mouth daily Active blood-glucose meter,continuous (Dexcom G6 Information Broker) misc Activ e vit C-H-xrrypu-zinc- lutein 226-90-0.8-5 mg capsule Take 1 capsule by mouth 2 (two) times a day Active azelastine (ASTELIN) 137 mcg (0.1 %) nasal spray Administer 1 spray into each nostril 2 (two) times a day Use in each nostril as directed 30 mL 6 09/14/19 23 Active Ozempic 1 mg/dose (4 mg/3 mL) pen injector injection INJECT 1 MG (0.75 ML) SUBCUTANEOUSLY WEEKLY FOR 90 DAYS Active albuterol HFA (PROVENTIL HFA,VENTOLIN HFA,PROAIR HFA) 90 mcg/actuation inhaler INHALE 1 PUFF BY MOUTH EVERY 4 HOURS NEEDED FOR SHORTNESS OF BREATH 09/27/19 24 Active meloxicam (MOBIC) 7.5 mg tablet Take 1 tablet (7.5 mg total) by mouth daily 10/13/19 24 Active carvediloL (COREG) 6.25 mg tablet TAKE 1 TABLET BY MOUTH EVERY 12 HOURS MUST ADMINISTER WITH A MEAL/FOOD 08/08/19 24 Active losartan (COZAAR) 100 mg tablet Take 1 tablet (100 mg total) by mouth daily 09/18/19 24 Active Active Problems Problem Noted Date Diagnosed Date Multiple pulmonary nodules 04/25/2023 Nonsmoker 11/10/2021 Pulmonary eosinophilia 06/04/2021 Chronic cough 03/10/2021 BMI 45.0-49.9, adult 03/10/2021 Solitary pulmonary nodule 03/10/2021 Calculus of gallbladder with out cholecystitis without obstruction 03/10/2021 Abnormal chest x-ray 11/03/2020 Mild intermittent asthma without complication Shortness of breath 09/02/2020 History of pneumonia 09/02/2020 Overweight 09/02/2020 Sleep disorder 09/02/2020 Non-seasonal allergic rhinitis due to pollen 03/2021 Community acquired pneumonia, bilateral 08/27/19 Loculated pleural effusion 08/27/2020 Leukocytosis 04/16/2016 Immunizations Immunization Administration Dates Next Due Influenza, Trivalent, IM (MDV) 05/02/2017,2015 Influenza, Unspecified 04/16/2016,03/05/2016 MMR 03/17/2019 Pneumococcal Polysaccharide PPV23 10/01/2014,08/2014 ZOSTER LIVE 04/16/2016,03/05/2016 Surgical History Surgery Date Site/Laterality Comments HAND SURGERY Social History Tobacco Use Types Packs/Day Years Used Date Smoking Tobacco: Former Smokeless Tobacco: Never Tobacco Cessation:Counseling Given: Not Answered Alcohol Use Standard Drinks/Week Comments Never 0 (1 standard drink = 0.6 oz pur e alcohol) AUDIT-C Answer Date Recorded Frequency of Alcohol Consumption Never 09/02/2020 Average Number of Drinks Not on file 021 Frequency of Binge Drinking Not on file 03/2021 Personal Safety Answer Date Recorded Getting School Help Needed Not on file 09/18 Comments Unknown Sex and Gender Information Value Date Recorded Sex Assigned at Not on file 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 Gender Identity Female 10/27/2020 8:24 AM CDT Sexual Orientation Straight 10/27/2020 8: 24 AM CDT Obstetrics History Last Filed Vital Signs Vital Sign Reading Time Taken Comments Blood Pressure 101/62 10/25/2023 10:54 AM CDT Pulse 65 10/25/2023 10:54 AM CDT Temperature 36.3 C (97.4 F) 10/25/2023 10:54 AM CDT Respiratory Rate 20 10/25/2023 10:54 AM CDT Oxygen Saturation 99% 10/25/2023 10:54 AM CDT Inhaled Oxygen Concentration - - Weight 117.9 kg (260 lb) 10/25/2023 10:54 AM CDT Height 152.4 cm (5') 10/25/2023 10:54 AM CDT Body Mass Index 50.78 10/25/2023 10:54 AM CDT Plan of Treatment Health Maintenance Due Date Last Done Comments Breast Cancer Screening-Mammogram 1954 Colon Cancer Screening-Colonoscopy 1954 Depression Screening 1954 Fall Risk Assessment 1954 Hepatitis C Screening 1954 Osteoporosis Screening-Bone Density Scan 1954 DTaP/Tdap/Td Vaccine (1 - Tdap) 1965 Hepatitis B Screening 1972 Pneumococcal vaccine 65+ (2 of 2 - PCV) 10/02/2015 10/01/2014, 09/23/2014 Zoster Vaccine (2 of 3) 06/11/2016 04/16/2016, 03/05 Well Visit 65+ 2019 Covid-19 Vaccine (2 - 2023-2 5 season) 2024 06/15/2021 Influenza Vaccine (#1) 2024 7, 04/16/2016, 04/15/2016, Additional history exists Insurance AETNA MEDICARE [facility] [place] [address] [facility] AETNA MEDICARE Care Teams Managing Attorney Relationship Specialty Start Date End Date Arin Knapp MD PCP - General 07/18/20
--- OUTSIDE RECORDS SUMMARY | 2024-10-10 16:01 | XMS_ITS | Clinical Summary ---
Author Organization [facility] true [facility] Address [address] [place] [address] Care Team Providers Care Radiation Oncology Manager Name Role Phone Arin Knapp MD Primary Care Provider Allergies Active Allergy Reactions Criticality Noted Date Comments Cetirizine Unknown 06/14/2022 Fluconazole Unknown 06/14/2022 Hydrocortisone Unknown 06/14/2022 Lactose Diarrhea Low 06/14/2022 Lisinopril Unknown 06/14/2022 Poison Sumaya Extract Hives High 03/05/2016 Povidone Unknown 06/14/2022 Sulfa (Sulfonamide Antibiotics) Rash Low 05/26 Talc Hives High 03/05/2016 Medications blood sugar diagnostic Strip One touch Active Blood-Glucose Meter by Other route. Acti ve Cholecalcifero l, Vitamin D3, 50 mcg (2,000 unit) Capsule Take 2,000 Units by mouth daily. Active magnesium oxide (MAG-OX) 400 mg (241.3 mg magnesium) tablet Take 1 Tablet by mouth 2 times daily. Active metFORMIN (GLUCOPHAGE) 500 mg tablet Take 500 mg by mouth 2 times daily. Active fluticasone propion-salmet Simon (ADVAIR DISKUS,WIXELA INHUB) 100-50 mcg/dose disk inhaler Take 1 Puff by inhalation 2 times daily. Active albuterol sulfate 90 mcg/Actuation inhaler Take 2 Puffs by inhalation every 6 hours as needed for Shortness of Breath. Active furosemide (LASIX) 10 mg/mL Solution Take by mouth two times daily, 7 hours apart. Active insulin aspart (NovoLOG) 100 unit/mL injection Inject 4 Units by subcutaneous injection 3 times daily with meals. Active losartan-hydro CHLOROthiazide (HYZAAR) 50-12.5 mg tablet Take 1 Tablet by mouth daily. Active simvastatin (ZOCOR) 20 mg tablet Take 20 mg by mouth daily with supper. Active Vit C-Vit H-Jlveys-KvNj- Lutein (PRESERVISION) 226-90-0.8-5 mg Capsule Take 1 Capsule by mouth 2 times daily. Active Blood-Glucose Meter,Continuo us (Dexcom G6 Cocoa Powder Mixer Operator) by [facility].(Non-Drug; Combo Route) route. Active insulin aspart U-100 (NovoLOG ECHO PENFILL) 100 unit/mL cartridge Inject by subcutaneous injection. Active Tresiba FlexTouch U-100 100 unit/mL (3 mL) pen syringe INJECT 20 UNITS (0.2 ML) SUBCUTANEOUSLY EVERY DAY AT BEDTIME FOR 90 DAYS 4 Active meloxicam (MOBIC) 7.5 mg tablet Take 7.5 mg by mouth daily. Active Active Problems Problem Noted Date Diagnosed Date Cellulitis 06/14/2022 Pneumonia 06/14/2022 Encounters Date Type Department Care Team Description 09/29/2024 External Device Data [facility] Provider, Abstract 09/28/2024 External Device Data [facility] Provider, Abstract 09/26/2024 External Device Data [facility] Provider, Abstract 09/12/2024 External Device Data [facility] Provider, Abstract 08/22/2024 External Device Data [facility] Provider, Abstract 08/16/2024 External Device Data [facility] Provider, Abstract 08/14/2024 External Device Data [facility] Provider, Abstract from Last 3 Months Family History Medical History Relation Name Comments No Known Problems Brother 1 Brain Cancer Brother 2 Colon Cancer Brother 2 Heart Disease Brother 2 Kidney Cancer Brother 2 Lung Cancer Brother 2 Heart Disease Father Colon Cancer Mother Heart Disease Mother Relation Name Status Comments Brother 1 Alive Brother 2 Father Mother Alive Social History Tobacco Use Types Packs/Day Years Used Date Smoking Tobacco: Former Cigarettes 0.5 2 1 09/05/1973 - 07/05/1976 Smokeless Tobacco: Never Tobacco Cessation:Counseling Given: Not Answered Alcohol Use Standard Drinks/Week Comments Yes 1 (1 standard drink = 0.6 oz pur e alcohol) maybe 1 drink per month Comments Unknown Sex and Gender Information Value Date Recorded Sex Assigned at Not on file 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 Gender Identity Not on file Sexual Orientation Not on file Last Filed Vital Signs Vital Sign Reading Time Taken Comments Blood Pressure 137/69 01/16/2024 10:19 AM CDT Pulse 70 01/16/2024 10:19 AM CDT Temperature 36.7 C (98 F) 01/16/2024 10:19 AM CDT Respiratory Rate 20 01/16/2024 10:19 AM CDT Oxygen Saturation 96% 01/16/2024 10:19 AM CDT Inhaled Oxygen Concentration - - Weight 119.7 kg (264 lb) 01/16/2024 10:19 AM CDT Height 157.5 cm (5' 2 ) 06/14/2022 1:34 PM FRENCH BINDING FOLDER Body Mass Index 48.29 06/14/2022 1:34 PM FRENCH BINDING FOLDER Plan of Treatment Upcoming Encounters Date Type Department Care Team (Late st Contact Info) Description 10/15/2024 10:00 AM CDT Office Visit [facility] Oncology and Hematology - [place] [address] [facility] [address] [place] [address] Mau Lee MD [address] [facility] [address] [place] [address] Health Maintenance Due Date Last Done Comments Pre-Diabetes and Diabetes Screening 1954 DTAP/TDAP/TD VACCINES (1 - Tdap) 1973 BREAST CANCER SCREENING 1994 COLORECTAL SCREENING 1999 Colorectal Cancer Screening 1999 FIT-DNA Q 3 years 1999 FIT/FOBT Q 1 year 1999 Flex Sig/CT Colonography Q 5 years 1999 RSV VACCINE (60+ or ) (1 - Risk 60-74 years 1-dose series) 2014 PNEUMOCOCCAL VACCINE 50+ YEA RS (2 of 2 - PCV) 10/02/2015 10/01/2014, 09/23/2014 ZOSTER VACCINE (2 of 3) 06/11/2016 04/16/2016, 03/05 OSTEOPOROSIS SCREENING 2019 INFLUENZA VACCINE (#1) 2024 05/02/2017, 2015 Medicare [place] ([place] Prev entative Visit/Annual Wellness Visit 07/25/2024 Insurance AETNA [id number] [facility] MCR Care Teams Radiation Oncology Manager Relationship Specialty Start Date End Date Arin Knapp MD [address] [place] [id number] PCP - General Family Practice 06/14/22
--- OUTSIDE RECORDS SUMMARY | 2024-10-10 16:01 | XMS_ITS | Referral Summary ---
Author Organization [facility] [place] [facility] Address [facility] [place] [address] Care Team Providers Care Trailer Steerer Name Role Phone Arin Knapp MD Primary [...] (two) times a day 08/19/19 21 Active swmumysqo-XJ-LR- acetaminoph-GG 5-325-200 mg (day-night) tablets, sequential Take by mouth Activ e LEVEMIR 100 unit/mL (3 mL) pen for injection 11/02/19 21 Active blood-glucose meter [facility] Active blood glucose diagnostic strip One touch Act pritesh UNABLE TO FIND Touch Delica Plus needles Active losartan (COZAAR) 50 mg tablet 07/22/20 21 Active Euflexxa 10 mg/mL(mw 2.4 -3.6 million) syringe 01/29/20 22 Active cyanocobalamin (Vitamin B-12) 1,000 mcg tabletIndication s:Prevention of Vitamin B12 Deficiency Take 1 tablet (1,000 mcg total) by mouth daily Active blood-glucose meter,continuous (Dexcom G6 Hazardous Materials Tanker Driver) misc Activ e vit O-N-ribbzb-zinc- lutein 226-90-0.8-5 mg capsule Take 1 capsule [...] Pneumococcal Polysaccharide PPV23 10/01/2014,08/2014 ZOSTER LIVE 04/16/2016,03/05/2016 Social History Tobacco Use Types Packs/Day Years [...] on file 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
--- OUTSIDE RECORDS SUMMARY | 2024-10-10 16:01 | XMS_ITS | Clinical Summary ---
Author Organization [facility] Address [address] [place] [id number] Care Team Providers Care Automation Test Engineer Name Role Phone Unavailable Primary Care Provider Unavailabl e Social History Tobacco Use Types Packs/Day Years Used Date Smoking Tobacco: Never Assessed Comments Unknown Sex and Gender Information Value Date Recorded Sex Assigned at Not on file Legal Sex Female 7:57 PM CDT Gender Identity Not on file Sexual Orientation Not on file Plan of Treatment Health Maintenance Due Date Last Done Comments Colorectal Cancer Screening Colonoscopy (10 Years) 1954 Hepatitis C 1972 DTaP, Tdap and Td Vaccines ( 1 - Tdap) 1973 Mammogram Screening 1994 Zoster Vaccines (1 of 2) 2004 Dexa Scan (General) 2019 Pneumococcal Vaccine: 65+ Ye ars (1 of 1 - PCV) 2019 COVID-19 Vaccine (2023-2 5 season) 2024 Influenza Adult (#1) 2024 RSV Immunization or 60+ Years (1 - 1-dose 75+ series) 2029 Meningococcal B Vaccine Aged Out No l onger eligible based on patient's age to complete this topic Meningococcal Vaccine Aged Out No jignesh russell eligible based on patient's age to complete this topic RSV Immunizations Under 20 Months Aged Out No longer eligible based on patient's age to complete this topic
[2024-10-10 19:21] LABS: Basophils Absolute Auto 0.1 K/mm3 (0.0-0.1); Basophils Percent Auto 0.5 % (0.2-1.2); Eosinophils Absolute Auto 0.2 K/mm3 (0-0.3); Eosinophils Percent Auto 1.9 % (0-4.4); Hematocrit 41.4 % (37.0-47.0); Hemoglobin 13.1 g/dL (12.0-15.0); Immature Granulocyte Absolute 0.04 K/mm3 (0.00-0.031); Immature Granulocyte Percent A 0.3 % (0-0.5); Lymphocytes Absolute Auto 3.26 K/mm3 (0.9-3.2); Lymphocytes Percent Auto 27.4 % (18.3-44.2); Mean Corpuscular HGB Conc 31.6 g/dl (32-36); Mean Corpuscular Hemoglobin 29.4 pg (26-34); Mean Corpuscular Volume 92.8 fl (80-100); Mean Platelet Volume 12.2 fl (7.4-10.4); Monocytes Absolute Auto 0.8 K/mm3 (0.1-0.6); Monocytes Percent Auto 6.7 % (2.6-8.5); Neutrophils Absolute Auto 7.5 K/mm3 (1.3-6.7); Neutrophils Percent Auto 63.2 % (45.5-73.1); Platelet Count Result 254 k/mm3 (150-375); Red Blood Count 4.46 M/mm3 (4.2-5.4); Red Cell Distribution Width 14.1 % (11.5-14.5); White Blood Count 11.9 K/mm3 (4.5-10.0)
[2024-10-10 20:04] LABS: Anion Gap 12 mmol/L (4-12); Blood Urea Nitrogen 32 mg/dL (7-17); Calcium 9.8 mg/dL (8.4-10.2); Carbon Dioxide 23 mmol/L (22-30); Chloride 102 mmol/L (98-107); Estimated Glomerular Filt Rate 38; Glucose 98 mg/dL (65-110); Potassium 4.8 mmol/L (3.4-5.0); Sodium 137 mmol/L (137-145)
== END 2024-10-10 14:20 | disposition home or self-care (01) ==
LOC: ANHGOSHLAB 14:21
PROVIDERS: PCP Family Medicine; Visit Provider Internal Medicine Hematology & Oncology
DX: D64.9 Anemia, unspecified (principal)
CPT/HCPCS: 36415; 80048; 82607; 85025

== ENCOUNTER 2024-11-13 10:00 | Outpatient (RCR) | payer MEDICARE, SELFPAY ==
--- NOTE | 2024-10-08 15:26 | OPREHPOC ---
Outpatient Therapy Plan of Care This is a Multidisciplinary Plan of Care that may contain components documented by all disciplines (PT, OT, and ST.) PT Problem 1 PT Problem #1 Knowledge Deficit PT Goal 1 Goal / Goal Update 1. Pt to be IND with issued HEP Target Visit 10 PT Problem 2 PT Problem #2 Pain PT Goal 1 Goal / Goal Update 1. Pt to report pain no greater than 3/10 in the last week. 2. Pt to report 75% improvement in overall symptoms. Target Visit 10 PT Problem 3 PT Problem #3 Impaired Range of Motion PT Goal 1 Goal / Goal Update 1. Pt to improve active shoulder flexion ROM to 140 deg 2. Pt to improve active shoulder abduction ROM to 120 deg 3. Pt to demonstrate full elbow extension ROM. Target Visit 8
--- NOTE | 2024-10-08 15:26 | PTOPEVAL1 ---
Assessment and note entered by Tre Lerner, PT, DPT Evaluation Information Assessment Status Evaluation ICD-10 Condition Codes (PT) Pain in left shoulder M25.512,Weakness R53.1 Subjective Information Pt had a fall on 08/21/24, and had a L greater tuberosity fracture. She was in a sling for 5 weeks, sleeping in a recliner. She was told no pushing, pulling, or lifting, for at least the next 3 weeks. She states she also has golfers elbow, tennis elbow, and has had 15 hand/wrist surgeries. Pt states she is eager to get back to driving, cooking more complex meals, and folding laundry. Reported Pain Level Pain Score 4: Self Report Assessment PT Clinical Summary Pt presents to therapy today for her initial evaluation after a L shoulder fracture, she has spent the last 5 weeks with her shoulder immobilized. Today she demonstrates decreased in passive shoulder motion on the L when compared to the R, she is also lacking terminal elbow extension. She is currently on a lifting restrictions but her active strength against gravity is also decreased when compared to the R shoulder. Skilled therapy services are indicated to progress ROM, to manage pain, and to return to PLOF. Plan of Care Interventions Electrical Stimulation,Hot Pack/Cold Pack,Manual Therapy,Neuro Re-education,Patient/Caregiver Education,Therapeutic Activities,Therapeutic Exercise PT Services Indicated Yes Treatment Frequency and 2x/wk for 8 visits Duration These treatments will address the objective and functional deficits as defined above. The patient will be advanced safely and appropriately in order for the patient to progress towards his/her prior level of function. Additional exercises will be introduced and as well as a comprehensive home exercise program upon discharge, if needed, ?to ensure carryover of functional gains achieved in the clinic. This treatment plan has been reviewed and agreement upon by the patient.
--- NOTE | 2024-11-13 15:42 | OPREHPOC ---
Outpatient Therapy Plan of Care This is a Multidisciplinary Plan of Care that may contain components documented by all disciplines (PT, OT, and ST.) PT Problem 1 PT Problem #1 Knowledge Deficit PT Goal 1 Goal / Goal Update 1. Pt to be IND with issued HEP Target Visit 10 Progress Met PT Problem 2 PT Problem #2 Pain PT Goal 1 Goal / Goal Update 1. Pt to report pain no greater than 3/10 in the last week. 2. Pt to report 75% improvement in overall symptoms. Target Visit 16 Progress Partially Met PT Problem 3 PT Problem #3 Impaired Range of Motion PT Goal 1 Goal / Goal Update 1. Pt to improve active shoulder flexion ROM to 140 deg 2. Pt to improve active shoulder abduction ROM to 120 deg 3. Pt to demonstrate full elbow extension ROM. Target Visit 8 Progress Met PT Problem 4 PT Problem #4 Impaired Strength PT Goal 1 Goal / Goal Update 1. Patient to improve L shoulder flexion strength to 4+/5 pain free 2. Patient to improve L shoulder external rotation strength to 4+/5 to improve shoulder stability Target Visit 16
--- NOTE | 2024-11-13 15:42 | PTOPPROG ---
Assessment and note entered by Soham Riley, PT Evaluation Information Assessment Status Progress ICD-10 Condition Codes (PT) Pain in left shoulder M25.512,Weakness R53.1 Subjective Information Reports that overall she is a bit better. She does note that she has been having trouble with anterior shoulder pain still. She feels that functionally she still needs to work on it but unsure if therapy is helping at this point that it may still need to take time. She woke up early this morning with pain and had to sleep in the recliner. Assessment PT Clinical Summary Patient has made excellent progress in shoulder ROM at this time. She continues to see improvement in strength as well once she was able to progress to resistance activity. Will continue to benefit form skilled therapy to address these deficits. Plan of Care Interventions Electrical Stimulation,Hot Pack/Cold Pack,Manual Therapy,Neuro Re-education,Patient/Caregiver Education,Therapeutic Activities,Therapeutic Exercise PT Services Indicated Yes Treatment Frequency and 2x/week for 6 visits Duration These treatments will address the objective and functional deficits as defined above. The patient will be advanced safely and appropriately in order for the patient to progress towards his/her prior level of function. Additional exercises will be introduced and as well as a comprehensive home exercise program upon discharge, if needed, ?to ensure carryover of functional gains achieved in the clinic. This treatment plan has been reviewed and agreement upon by the patient.
--- NOTE | 2024-12-25 14:07 | PTOPDC ---
Assessment and note entered by Soham Riley, PT Evaluation Information Assessment Status Discharge - Pt Not Present ICD-10 Condition Codes (PT) Pain in left shoulder M25.512,Weakness R53.1 Subjective Information Patient contacted clinic stating that she felt she was doing well enough on her own and is requesting discharge. No concerns with her current exercise program. Assessment PT Clinical Summary Patient to be discharged from skilled therapy at this time to [facility]. No concerns with discharge and patient reports compliance with continued HEP. Please refer to last progress note for discharge status. Plan of Care PT Services Indicated Yes
== END 2024-12-25 15:18 | disposition home or self-care (01) ==
LOC: ANHGOSHPT 10:00
PROVIDERS: PCP Physician Assistant Surgical; Visit Provider Physician Assistant Surgical
DX: S42.92XA Fracture of left shoulder girdle, part unspecified, initial encounter for closed fracture (principal)
CPT/HCPCS: 97014; 97110; 97140; 97161; G0283

== ENCOUNTER 2024-11-28 11:45 | Outpatient (CLI) | payer MEDICARE, SELFPAY ==
--- OUTSIDE RECORDS SUMMARY | 2024-11-28 12:19 | XMS_ITS | Clinical Summary ---
Author Organization [facility] true [facility] Address [address] [place] [address] Care Team Providers Care Clin Nurse Spec Name Role Phone Arin Knapp MD Primary [...] injection 3 times daily with meals. Active simvastatin (ZOCOR) 20 mg tablet Take 20 mg by mouth daily with supper. Active Vit C-Vit X-Vvgavw-PiNz- Lutein (PRESERVISION) 226-90-0.8-5 mg Capsule Take 1 Capsule by mouth 2 times daily. Active Blood-Glucose Meter,Continuo us (Dexcom G6 Relationship Counselor) by [facility].(Non-Drug; Combo Route) route. Active insulin aspart U-100 (NovoLOG ECHO PENFILL) 100 unit/mL cartridge Inject by subcutaneous injection. Active Tresiba FlexTouch U-100 100 unit/mL (3 mL) pen syringe INJECT 20 UNITS (0.2 ML) SUBCUTANEOUSLY EVERY DAY AT BEDTIME FOR 90 DAYS 4 Active meloxicam (MOBIC) 7.5 mg tablet Take 7.5 mg by mouth daily. Active Kerendia 10 mg Tablet Take 1 Tablet by mouth daily. 5 Active HYDROcodone-ac etaminophen (NORCO) 5-325 mg tablet Take 1 Tablet by mouth every 4 hours as needed for Pain. 5 Active amLODIPine (NORVASC) 5 mg tablet Take 1 Tablet by mouth daily. 5 Active carvediloL (COREG) 6.25 mg tablet Take 6.25 mg by mouth 2 times daily. 4 Active levothyroxine 100 mcg tablet Take 100 mcg by mouth daily. Active losartan (COZAAR) 100 mg tablet Take 100 mg by mouth daily. Active Active Problems Problem Noted Date Diagnosed Date Cellulitis 06/14/2022 Pneumonia 06/14/2022 Encounters Date Type Department Care Team Description 10/18/2024 Orders Only [facility] Oncology and Hematology - [place] [address] [place] [address] Mau Lee MD 10/15/2024 10:00 AM CDT Office Visit [facility] Oncology and Hematology - [place] [address] [place] [address] Mau Lee MD Chronic anemia (Primary Dx) 10/12/2024 Orders Only [facility] Oncology and Hematology - [place] [address] [place] [address] Mau Lee MD 10/10/2024 External Device Data [facility] ABSTRACTION Provider, Abstract 09/29/2024 External Device Data [facility] ABSTRACTION Provider, [...] on file Legal Sex Female 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 Gender Identity Not on file Sexual Orientation Not on file Last Filed Vital Signs Vital Sign Reading Time Taken Comments Blood Pressure 133/66 10/15/2024 10:01 AM CDT Pulse 64 10/15/2024 10:01 AM CDT Temperature 36.7 C (98.1 F) 10/15/2024 10:01 AM CDT Respiratory Rate 15 10/15/2024 10:0 1 AM CDT Oxygen Saturation 98% 10/15/2024 10: 01 AM CDT Inhaled Oxygen Concentration - - Weight 118.8 kg (261 lb 12.8 oz) 2024 10:01 AM CDT Height 157.5 cm (5' 2 ) 06/14/2022 1:34 PM SLEEVE BOTTOM FELLER Body Mass Index 47.88 06/14/2022 1:34 PM SLEEVE BOTTOM FELLER Plan of Treatment Upcoming Encounters Date Type Department Care Team (Late st Contact Info) Description 10/16/2025 10:00 AM CDT Office Visit [facility] Oncology and Hematology [facility] [address] [place] [phone] Mau Lee MD [address] [facility] [employer] [address] [place] [address] Health Maintenance Due Date Last Done Comments DIABETES ANNUAL FOOT EXAM 1972 DIABETES ANNUAL RETINAL EXAM 1972 DIABETES HBA1C Q 6 MONTHS 1972 DIABETES MICROALBUMIN ANNUAL SCREEN 1972 LDL CHOLESTEROL ANNUAL 1972 DTAP/TDAP/TD VACCINES (1 - Tdap) 1973 BREAST [...] 2019 INFLUENZA VACCINE (#1) 2024 05/02/2017, 2015 COVID-19 Vaccine (2 - season) 2024 Procedures Procedure Name Priority Date/Time Associated Diagnosis Comments BASIC METABOLIC PANEL Routine 10/10/2024 2:41 PM CDT BASIC METABOLIC PANEL Routine 10/10/2024 11:45 AM CDT from Last 3 Months Results * BASIC METABOLIC PANEL (10/10/2024 2:41 PM CDT) Only the most recent of2 resultswithin the time period is included. Blood us Mau Lee MD CHEMISTRY ORDERABLES Final Resu lt from Last [facility] Mon[facility] Care Teams Clin Nurse Spec Relationship Specialty Start Date End Date Arin Knapp MD [address] [place] [phone] PCP - General Family Practice 06/14/22
--- OUTSIDE RECORDS SUMMARY | 2024-11-28 12:19 | XMS_ITS | Clinical Summary ---
Author Organization [facility] Address [facility] [place] [address] Care Team Providers Care Script Supervisor Name Role Phone Arin Knapp MD Primary [...] (two) times a day 08/19/19 21 Active qdwcvpohz-LS-KI- acetaminoph-GG 5-325-200 mg (day-night) tablets, sequential Take by mouth Activ e LEVEMIR 100 unit/mL (3 mL) pen for injection 11/02/19 21 Active blood-glucose meter [facility] Active blood glucose diagnostic strip One touch Act pritesh UNABLE TO FIND Touch Delica Plus needles Active losartan (COZAAR) 50 mg tablet 07/22/20 21 Active Euflexxa 10 mg/mL(mw 2.4 -3.6 million) syringe 01/29/20 22 Active cyanocobalamin (Vitamin B-12) 1,000 mcg tabletIndication s:Prevention of Vitamin B12 Deficiency Take 1 tablet (1,000 mcg total) by mouth daily Active blood-glucose meter,continuous (Dexcom G6 Making Line Worker) misc Activ e vit F-Z-lrqtlh-zinc- lutein 226-90-0.8-5 mg capsule Take 1 capsule by mouth 2 (two) times a day Active Ozempic 1 mg/dose (4 mg/3 mL) [...] HOURS MUST ADMINISTER WITH A MEAL/FOOD 08/08/19 Active losartan (COZAAR) 100 mg tablet Take 1 tablet (100 mg total) by mouth daily 09/18/19 24 Active Active Problems Problem Noted Date Diagnosed Date Allergic rhinitis 10/25/2024 History of nicotine dependence 10/25/2024 Multiple pulmonary nodules 04/25/2023 Nonsmoker 11/10/2021 Pulmonary eosinophilia 06/04/2021 Chronic cough 03/10/2021 BMI 50.0-59.9, adult 03/10/2021 Solitary pulmonary nodule 03/10/2021 Calculus of gallbladder with out cholecystitis without obstruction 03/10/2021 Abnormal chest x-ray 11/03/2020 Mild intermittent asthma without complication Shortness of breath 09/02/2020 History of pneumonia 09/02/2020 Overweight 09/02/2020 Sleep disorder 09/02/2020 Non-seasonal allergic rhinitis due to pollen 03/2021 Community acquired pneumonia, bilateral 08/27/19 Loculated pleural effusion 08/27/2020 Leukocytosis 04/16/2016 Encounters Date Type Department Care Team Description 10/25/2024 1:00 PM CDT Office Visit [facility] Pulmonology [address] [place] [id number] Melina Henderson, VANI Mild intermittent asthma without complication (Primary Dx); Allergic rhinitis, unspecified seasonality, unspecified trigger; Chronic cough; Pulmonary eosinophilia; Multiple pulmonary nodules; History of nicotine dependence; BMI 50.0-59.9, adult (HCC) from Last 3 Months Immunizations Immunization Administration Dates Next Due Influenza, [...] of Binge Drinking Not on file 03/2021 Comments Unknown Sex and Gender Information Value Date Recorded Sex Assigned at Not on file Legal Sex Female 8:23 PM SCOUTS Gender Identity Female 10/27/2020 8:24 AM CDT Sexual Orientation Straight 10/27/2020 8: 24 AM CDT Obstetrics History Last Filed Vital Signs Vital Sign Reading Time Taken Comments Blood Pressure 134/74 10/25/2024 12:58 PM CDT Pulse 71 10/25/2024 12:58 PM CDT Temperature 36.2 C (97.2 F) 10/25/2024 12:58 PM CDT Respiratory Rate 20 10/25/2024 12:5 8 PM CDT Oxygen Saturation 97% 10/25/2024 12: 58 PM CDT Inhaled Oxygen Concentration - - Weight 119.4 kg (263 lb 3.2 oz) 025 12:58 PM CDT Height 152.4 cm (5') 10/25/2024 12:58 PM CDT Body Mass Index 51.4 10/25/2024 12:58 PM CDT Plan of Treatment Health Maintenance Due [...] 2023-2 5 season) 2024 06/15/2021 Influenza Vaccine (Season Ended) 2025 05/02/2017, 04/16/2016, 04/15/2016, Additional history exists Insurance [employer] MEDICARE [facility] [place] [address] [facility] AET[employer] MEDICARE Care Teams Script Supervisor Relationship Specialty Start Date End Date Arin Knapp MD PCP - General 07/18/20
--- OUTSIDE RECORDS SUMMARY | 2024-11-28 12:19 | XMS_ITS | Referral Summary ---
Author Organization [facility] Address [address] [place] [address] Care Team Providers Care Sales Commissions Analyst Name Role Phone Arin Knapp MD Primary Care Provider Encounters Date Type Department Care Team Description 10/25/2024 1:00 PM CDT Office Visit [facility] Pulmonology [address] [facility] [address] [place] [address] MenseMelina, EXPRESSIVE ART THERAPIST Mild intermittent asthma without complication (Primary Dx); Allergic rhinitis, unspecified seasonality, unspecified trigger; Chronic cough; Pulmonary eosinophilia; Multiple pulmonary nodules; History of nicotine dependence; BMI 50.0-59.9, adult (HCC) from Last 3 Months Allergies Active Allergy Reactions Criticality Noted Date [...] ULTRA-FINE SHORT PEN NEEDLE 31 gauge x / needle 11/08/19 19 Active metFORMIN (GLUCOPHAGE) 500 [...] (two) times a day 08/19/19 21 Active oqoirpffa-AI-BU- acetaminoph-GG 5-325-200 mg (day-night) tablets, sequential Take by mouth Activ e LEVEMIR 100 unit/mL (3 mL) pen for injection 11/02/19 21 Active blood-glucose meter [facility] Active blood glucose diagnostic strip One touch Act pritesh UNABLE TO FIND Touch Delica Plus needles Active losartan (COZAAR) 50 mg tablet 07/22/20 21 Active Euflexxa 10 mg/mL(mw 2.4 -3.6 million) syringe 01/29/20 22 Active cyanocobalamin (Vitamin B-12) 1,000 mcg tabletIndication s:Prevention of Vitamin B12 Deficiency Take 1 tablet (1,000 mcg total) by mouth daily Active blood-glucose meter,continuous (Dexcom G6 Formula Mixer) [facility] Activ e vit R-W-tvobbu-zinc- lutein 226-90-0.8-5 mg capsule Take 1 capsule [...] on file Legal Sex Female 8:23 PM ROLL TUBE SETTER Gender Identity Female 10/27/2020 8:24 AM CDT [...] 10/25/2024 12:58 PM CDT Plan of Treatment Not [place] [address] [place] [address] [facility] Address: [address] [place] [address] [facility] AETNA [place] [place] [address] [employer] [facility] AET MEDICARE Care Teams Sales Commissions Analyst Relationship Specialty Start Date End Date Arin Knapp MD PCP - General 07/18/20
--- OUTSIDE RECORDS SUMMARY | 2024-11-28 12:19 | XMS_ITS | Clinical Summary ---
Author Organization [facility] Address [address] [place] [address] Care Team Providers Care Slackman Name Role Phone Unavailable Primary Care Provider [...] 1 - Tdap) 1973 Mammogram Screening 1994 Pneumococcal Vaccine: 50+ Ye ars (1 of 1 - PCV) 2004 Zoster Vaccines (1 of 2) 2004 Dexa Scan (General) 2019 COVID-19 Vaccine ( - 2023-2 5 season) 2024 RSV Immunization or 60+ Years (1 [...]
[2024-11-28 14:00] LABS: Alanine Aminotransferase 24 U/L (6-35); Albumin Level 4.3 g/dL (3.5-5.1); Alkaline Phosphatase 93 U/L (38-126); Aspartate Amino Transferase 38 U/L (14-36); Bilirubin,Total 0.4 mg/dL (0.2-1.3)
[2024-11-28 14:08] LABS: Albumin Level 4.2 g/dL (3.5-5.1); Anion Gap 8 mmol/L (4-12); Blood Urea Nitrogen 28 mg/dL (7-17); Calcium 9.5 mg/dL (8.4-10.2); Carbon Dioxide 26 mmol/L (22-30); Chloride 101 mmol/L (98-107); Estimated Glomerular Filt Rate 38; Glucose 147 mg/dL (65-110); Phosphorus 3.8 mg/dL (2.5-4.5); Potassium 4.7 mmol/L (3.4-5.0); Sodium 135 mmol/L (137-145)
[2024-11-28 20:29] LABS: Creatinine Urine 24.1 mg/dL; Total Protein Urine Random 18 mg/dL; Ur Ttl Prot Creatinine Ratio 0.75 mg/mg (0-0.20)
== END 2024-11-28 11:46 | disposition home or self-care (01) ==
LOC: ANHGOSHLAB 11:46
PROVIDERS: PCP Family Medicine; Visit Provider Internal Medicine Nephrology
DX: E11.22 Type 2 diabetes mellitus with diabetic chronic kidney disease (principal); I12.9 Hypertensive chronic kidney disease with stage 1 through stage 4 chronic kidney disease, or unspecified chronic kidney disease; N18.32 Chronic kidney disease, stage 3b; Z79.899 Other long term (current) drug therapy
CPT/HCPCS: 36415; 80069; 80076; 82570; 84156

== ENCOUNTER 2025-01-18 15:15 | Outpatient (CLI) | payer MEDICARE, SELFPAY ==
[2025-01-18 18:06] LABS: Basophils Absolute Auto 0.1 K/mm3 (0.0-0.1); Eosinophils Absolute Auto 0.3 K/mm3 (0-0.3); Eosinophils Percent Auto 3.5 % (0-4.4); Hematocrit 36.2 % (37.0-47.0); Hemoglobin 11.3 g/dL (12.0-15.0); Immature Granulocyte Absolute 0.05 K/mm3 (0.00-0.031); Immature Granulocyte Percent A 0.5 % (0-0.5); Lymphocytes Percent Auto 27.4 % (18.3-44.2); Mean Corpuscular HGB Conc 31.2 g/dl (32-36); Mean Corpuscular Hemoglobin 29.4 pg (26-34); Monocytes Absolute Auto 0.6 K/mm3 (0.1-0.6); Monocytes Percent Auto 6.9 % (2.6-8.5); Neutrophils Absolute Auto 5.6 K/mm3 (1.3-6.7); Neutrophils Percent Auto 60.7 % (45.5-73.1); Platelet Count Result 273 k/mm3 (150-375); Red Blood Count 3.85 M/mm3 (4.2-5.4); Red Cell Distribution Width 13.5 % (11.5-14.5); White Blood Count 9.1 K/mm3 (4.5-10.0)
[2025-01-18 18:14] LABS: Alanine Aminotransferase 17 U/L (6-35); Albumin Level 4.1 g/dL (3.5-5.1); Alkaline Phosphatase 70 U/L (38-126); Anion Gap 10 mmol/L (4-12); Aspartate Amino Transferase 34 U/L (14-36); Bilirubin,Total 0.3 mg/dL (0.2-1.3); Blood Urea Nitrogen 21 mg/dL (7-17); Calcium 9.9 mg/dL (8.4-10.2); Carbon Dioxide 26 mmol/L (22-30); Chloride 101 mmol/L (98-107); Cholesterol 185 mg/dL (0-200); Estimated Glomerular Filt Rate 35; Glucose 127 mg/dL (65-110); HDL Direct 48 mg/dL; Potassium 4.5 mmol/L (3.4-5.0); Sodium 137 mmol/L (137-145); Total Protein 7.3 g/dL (6.3-8.2); Triglycerides 241 mg/dL (<150)
[2025-01-18 18:20] LABS: Iron 60 ug/dL (37-170)
[2025-01-18 18:26] LABS: LDL Cholesterol Direct 63 mg/dL
[2025-01-18 18:39] LABS: Percent Iron Saturation 17 % (20-50)
== END 2025-01-18 15:16 | disposition home or self-care (01) ==
PROVIDERS: PCP Family Medicine; Visit Provider Nurse Practitioner Family
DX: E78.5 Hyperlipidemia, unspecified (principal); D62 Acute posthemorrhagic anemia; I10 Essential (primary) hypertension
CPT/HCPCS: 36415; 80053; 80061; 82728; 83540; 83550; 85025

== ENCOUNTER 2025-01-20 15:48 | Emergency (ER) | payer MEDICARE, SELFPAY ==
[2025-01-20] VITALS (7 sets, daily range): BP systolic 151–174; BP diastolic 65–79; PULSE 60–65; RESP 13–23; TEMP 36.7; O2SAT 98–100
--- NOTE | ~2025-01-20 | US_ITS ---
EXAMINATION: US pelvic complete DATE: 01/20/2025 17:04 INDICATION: abnl vaginal bleeding TECHNIQUE: Multiple transabdominal sonographic images of the pelvis were obtained. Transvaginal exami nation declined, difficulty with mobility. COMPARISON: CT abdomen pelvis 11/02/2021 and 09/25/2019 FINDINGS: Uterus: 8.1 x 2.8 x 5.1 cm. Endometrial complex measures 5 mm. Right Ovary: Not well visualized. No adnexal mass. Left Ovary: Not well visualized. Simple appearing 1.9 cm cystic structure in the left adnexa. There is no free fluid in the pelvis. IMPRESSION: 5 mm endometrial stripe. Recommend referral for endometrial sampling. Bilateral ovaries not well visualized in this transabdominal examination. 1.9 cm cystic structure in the left adnexa, may represent an ovarian or other cyst. Reviewed, dictated and finalized at [facility]. IMPRESSION: 5 mm endometrial stripe. Recommend referral for endometrial sampling. Bilateral ovaries not well visualized in this transabdominal examination. 1.9 c m cystic structure in the left adnexa, may represent an ovarian or other cyst.
[2025-01-20 16:28] LABS: Basophils Absolute Auto 0.1 K/mm3 (0.0-0.1); Eosinophils Absolute Auto 0.3 K/mm3 (0-0.3); Eosinophils Percent Auto 4.1 % (0-4.4); Hematocrit 34.3 % (37.0-47.0); Hemoglobin 10.9 g/dL (12.0-15.0); Immature Granulocyte Absolute 0.05 K/mm3 (0.00-0.031); Immature Granulocyte Percent A 0.6 % (0-0.5); Lymphocytes Absolute Auto 2.38 K/mm3 (0.9-3.2); Lymphocytes Percent Auto 30.7 % (18.3-44.2); Mean Corpuscular HGB Conc 31.8 g/dl (32-36); Mean Corpuscular Hemoglobin 29.7 pg (26-34); Mean Corpuscular Volume 93.5 fl (80-100); Monocytes Absolute Auto 0.6 K/mm3 (0.1-0.6); Monocytes Percent Auto 8.1 % (2.6-8.5); Neutrophils Absolute Auto 4.3 K/mm3 (1.3-6.7); Neutrophils Percent Auto 55.5 % (45.5-73.1); Platelet Count Result 255 k/mm3 (150-375); Red Blood Count 3.67 M/mm3 (4.2-5.4); Red Cell Distribution Width 13.5 % (11.5-14.5); White Blood Count 7.8 K/mm3 (4.5-10.0)
[2025-01-20 16:40] LABS: INR 1.1; Prothrombin Time 14.2 Seconds (11.1-14.7)
[2025-01-20 16:41] LABS: Partial Thromboplastin Time 32.8 Seconds (22.3-36.8)
--- NOTE | 2025-01-20 16:41 | ED_ITS ---
HPI - Female Genitourinary General Chief complaint: Vaginal Bleeding Stated complaint: vag bleed Time Seen by Provider: 01/20/25 15:48 Source: patient Mode of arrival: EMS Limitations: no limitations History of Present Illness HPI Narrative: Patient is a 69 y/o male, with PMH of CKD, DM, HTN, who presents to the ED with c/o vaginal bleeding. Patient reports she has been having intermittent vaginal bleeding since early November. She has been post menopausal since age 48. States she has intermittently been passing large blood clots. She has had increased blood clots since last night. She has been feeling very weak. Denies dizziness/LH, abdominal pain. Denies anticoagulation. She is scheduled to see Mamie Huber TITLE SEARCHER with OBGYN on Tuesday. Related Data Home Medications ?Medication ?Instructions ?Recorded ?Confirmed ?Last Taken ?Type blood-glucose meter (OneTouch 06/05/21 01/18/25 Unknown History Verio Reflect Meter) lancets 33 gauge (OneTouch Delica 06/05/21 01/18/25 Unknown History Plus Lancet) vitamins A,C,H-otqu-fbmbmp 2,148 2 tablet PO BID 03/30/22 01/18/25 Unknown History mcg-113 mg-45 mg-17.4 mg tablet (PreserVision AREDS) cholecalciferol (vitamin D3) 50 50 mcg PO DAILY 05/03/24 01/18/25 Unknown History mcg (2,000 unit) capsule mecobalamin (vitamin B12) 500 mcg 500 mcg PO DAILY 09/26/24 01/18/25 Unknown History chewable tablet acetaminophen 650 mg 650 mg PO Q12H PRN pain 11/08/24 01/18/25 Unknown History tablet,extended release (Arthritis Pain Relief (acetaminophen) ER) amlodipine 5 mg tablet 5 mg PO DAILY 11/08/24 01/18/25 Unknown History carvedilol 6.25 mg tablet 6.25 mg PO BID 11/08/24 01/18/25 Unknown History furosemide 20 mg tablet 20 mg PO .COMPLEX PRN 11/08/24 01/18/25 Unknown History magnesium oxide 400 mg (241.3 mg 250 mg PO DAILY 11/08/24 01/18/25 Unknown History magnesium) tablet Allergies Allergy/AdvReac Type Severity Reaction Status Date / Time hydrocortisone Allergy Mild TEARS Verified 01/18/25 14:37 STOMACH UP poison yemi extract Allergy Unknown Unknown Verified 01/18/25 14:37 povidone Allergy Unknown Unknown Verified 01/18/25 14:37 povidone-iodine Allergy Unknown RASH Verified 01/18/25 14:37 soap Allergy Unknown Unknown Verified 01/18/25 14:37 Sulfa (Sulfonamide Allergy Unknown Unknown Verified 01/18/25 14:37 Antibiotics) sulfanilamide Allergy Unknown Unknown Verified 01/18/25 14:37 talc Allergy Unknown Unknown Verified 01/18/25 14:37 fluconazole (From Diflucan) Allergy Rash Verified 01/18/25 14:37 cetirizine (From Zyrtec) AdvReac Severe leg cramps Verified 01/18/25 14:37 avocado AdvReac Intermediate Rash Verified 01/18/25 14:37 empagliflozin (From AdvReac Mild Rash Verified 01/18/25 14:37 Jardiance) lactose AdvReac Mild Unknown Verified 01/18/25 14:37 lisinopril AdvReac Mild Cough Verified 01/18/25 14:37 semaglutide (From Rybelsus) AdvReac Mild Nausea Verified 01/18/25 14:37 Review of Systems 2 Review of Systems: All systems reviewed & are unremarkable except as noted in HPI. 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 Retinopathy Bilateral primary osteoarthritis of knee Osteoarthritis of right knee Wears glasses BMI greater than 40 Degenerative joint disease of knee Diverticulitis of sigmoid colon (~10/2021) Type 2 diabetes mellitus without complications Hypomagnesemia Insomnia De Quervain's tenosynovitis, bilateral Dyslipidemia Vitamin D deficiency Environmental allergies Pneumonia 06/2020 Hypothyroidism, unspecified Essential hypertension Asthma Surgical History Surgical History History of carpal tunnel release of both wrists [id number] History of thoracentesis 06/2020 - Right loculated pleural effusion History of hand surgery (~1993) b/l - Multiple surgeries 2003 Family History Family History Father Hypertension Malignant neoplasm of prostate Family history of obesity Family history of cataracts Family history of congestive heart failure DVT (deep venous thrombosis) Mother Family history of hypothyroidism Family history of heart disease in male family member before age 55 Family history of obesity Family history of lung disease Family history of hearing loss Grandparent Family history of thyroid disease Family history of obesity Cerebrovascular accident Family history of arthritis Family history of congestive heart failure Diabetes mellitus Sibling Family history of malignant neoplasm of brain Family history of malignant neoplasm of kidney Family history of heart disease in male family member before age 55 Brain aneurysm Other Family history of cardiovascular disease Family history of lung cancer Family history of malignant neoplasm Neuropathy Social History Social History Smoking packs per day: 0.15 Smoking cigarettes per day: 3.0 Years smoked: 3 Smoking pack-years: 0.45 Smoking status: Former smoker Tobacco type: cigarettes Second hand tobacco smoke exposure: No Smoking end date: 09/23/75 Additional smoking assessment comments: smoked [id number] per [place] Alcohol intake: current Alcohol use details: special occasions Substance use: never Substance use type: does not use Do You Feel Safe in your Home?: Yes Lack of Transportation: No Lack of Food: Never True Current Housing: I Have Housing Concerned About Future Housing: No Difficulty Paying Gas/Electric Bills: No Difficulty Paying for Meds: No Currently Unemployed: No Education: Master's Degree or Higher Difficulty w/ Childcare or Family Care: No Living arrangements: with family Additional living arrangements comments: spouse Occupation/Education: retired 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 HEAD: Normocephalic, atraumatic. RESPIRATORY: Airway patent, respirations nonlabored. Clear to auscultation bilaterally, no rales, rhonchi, wheezing. CARDIOVASCULAR: Regular rate and rhythm without murmurs, rubs, or gallops. ABDOMINAL: Soft, nontender, nondistended. Normoactive BS. PELVIC: Normal external genitalia. Three irregular shaped polyps protruding from cervix that have somewhat coalesced together. No active bleeding or bleeding throughout vaginal vault. MUSCULOSKELETAL: Moves all extremities. No gross deformities. SKIN: Warm, dry, normal color. NEURO: A&O X3. Speech clear. PSYCHIATRIC: Appropriate mood and affect. Normal interaction. Course Vital Signs Vital signs: Vital Signs Temperature 98.0 F 01/20/25 15:50 Pulse Rate 64 01/20/25 15:50 Respiratory Rate 18 01/20/25 15:50 Blood Pressure 151/67 H 01/20/25 15:50 Pulse Oximetry 100 01/20/25 15:50 Oxygen Delivery Room Air 01/20/25 15:50 Temperature 98.0 F 01/20/25 15:50 Pulse Rate 64 01/20/25 16:19 Respiratory Rate 16 01/20/25 16:19 Blood Pressure 174/79 H 01/20/25 16:19 Pulse Oximetry 98 01/20/25 16:02 Oxygen Delivery Room Air 01/20/25 15:50 MDM - Female Genitourinary MDM Narrative Medical decision making narrative: Patient presented to ED with 2 month history of intermittent abnormal vaginal bleeding, postmenopausal. Began feeling weak today. Vital signs are stable upon arrival. Patient is in no acute distress. CBC with white blood cell count of 10.9. This does appear to be slowly down trending over the past few months. Baseline more around 13 per previous records. No indication for transfusion at this time. Remainder basic laboratory studies are otherwise unremarkable. Urine with 6-10 wbc's but no urine bacteria seen. She denies any urinary complaints. Sent for culture. Pelvic exam was performed and does show few irregular cervical polyps. No significant vaginal bleeding. No evidence of hemorrhage or pooling of fluid. Pelvic ultrasound was obtained and does show 5 mm endometrial stripe, recommended sampling. Also showing possible left adnexal cyst. Discussed pelvic exam and imaging findings with rodriguez Trevino box order person for Dr. Hook's office (patient scheduled to see Mamie Huber NP on Tuesday). Advised may need D&C for polyps and endometrial sampling. Recommended to keep appointment on Wednesday. Can call office tomorrow and determine if she can be seen sooner. Otherwise no further recommendations at this time. Patient in agreement with plan. Discussed return precautions. Discharged in stable condition. Vital signs stable at time of D/C. Medical Records Attestation: I reviewed the patient's medical records. Lab Data Attestation: I reviewed the patient's lab results. 01/20/25 16:22 01/20/25 16:22 Labs: Lab Results 01/20/25 01/20/25 Range/Units 16:22 17:06 WBC 7.8 (4.5-10.0) K/mm3 RBC 3.67 L (4.2-5.4) M/mm3 Hgb 10.9 L (12.0-15.0) g/dL Hct 34.3 L (37.0-47.0) % MCV 93.5 (80-100) fl MCH 29.7 (26-34) pg MCHC 31.8 L (32-36) g/dl RDW 13.5 (11.5-14.5) % Plt Count 255 (150-375) k/mm3 MPV 12.0 H (7.4-10.4) fl Immature Gran % (Auto) 0.6 H (0-0.5) % Neut % (Auto) 55.5 (45.5-73.1) % Lymph % (Auto) 30.7 (18.3-44.2) % Sherman % (Auto) 8.1 (2.6-8.5) % Eos % (Auto) 4.1 (0-4.4) % Baso % (Auto) 1.0 (0.2-1.2) % Lymph # (Auto) 2.38 (0.9-3.2) K/mm3 Sherman # (Auto) 0.6 (0.1-0.6) K/mm3 Eos # (Auto) 0.3 (0-0.3) K/mm3 Baso # (Auto) 0.1 (0.0-0.1) K/mm3 Abs Immat Gran (auto) 0.05 H (0.00-0.031) K/mm3 Absolute Neuts (auto) 4.3 (1.3-6.7) K/mm3 Absolute Nucleated RBC 0.000 (0.0-0.012) K/mm3 Nucleated RBC % 0.0 (0.0-0.2) % PT 14.2 (11.1-14.7) Seconds INR 1.1 APTT 32.8 (22.3-36.8) Seconds Sodium 135 L (137-145) mmol/L Potassium 4.4 (3.4-5.0) mmol/L Chloride 103 (98-107) mmol/L Carbon Dioxide 23 (22-30) mmol/L Anion Gap 9 (4-12) mmol/L BUN 24 H (7-17) mg/dL Creatinine 1.39 H (0.7-1.0) mg/dL Estim Creat Clear Calc Not Reportable Estimated GFR 37 L (59 - ) Glucose 122 H (65-110) mg/dL Calcium 9.8 (8.4-10.2) mg/dL Total Bilirubin 0.3 (0.2-1.3) mg/dL AST 30 (14-36) U/L ALT 18 (6-35) U/L Alkaline Phosphatase 77 (38-126) U/L Total Protein 6.9 (6.3-8.2) g/dL Albumin 4.0 (3.5-5.1) g/dL Urine Color Yellow (Yellow) Urine Appearance Clear (Clear) Urine pH 7.5 (5.0-9.0) Ur Specific Charlton 1.006 (1.001-1.035) Urine Protein Negative (Negative) mg/dL Urine Glucose (UA) Negative (Negative) mg/dL Urine Ketones Negative (Negative) mg/dL Ur Blood (Man) 1+ H (Negative) Urine Nitrate Negative (Negative) Urine Bilirubin Negative (Negative) Urine Urobilinogen 0.2 (<2.0) mg/dL Leukocyte Esterase Rfl 2+ H (Negative) SAMANTHA/UL Urine RBC 0-2 (0-2) /hpf Urine WBC 6-10 H (0-3) /hpf Ur Squamous Epith Cells None seen (Few) /hpf Urine Bacteria None seen /hpf Urine Casts 0-2 Imaging Data Attestation: I personally reviewed and interpreted this imaging study as follows: Radiologist's impression: ITS Impressions Pelvis Ultrasound 01/20/25 17:13 IMPRESSION: 5 mm endometrial stripe. Recommend referral for endometrial sampling. Bilateral ovaries not well visualized in this transabdominal examination. 1.9 cm cystic structure in the left adnexa, may represent an ovarian or other cyst. Discharge Plan Discharge Clinical Impression: Post-menopausal bleeding, Cervical polyp, Thickened endometrium Patient Disposition: Home Condition: Stable Instructions: Antibiotic Form, Abnormal (Dysfunctional) Uterine Bleeding (ED) Additional Instructions: Follow-up with your OBGYN at your appointment on Tuesday. You may call the office tomorrow to determine if you can be seen sooner. Stay well hydrated at home. Continue to monitor bleeding. Return to the ED for new or worsening concerns. Patient Language: Polish Prescriptions: No Action cholecalciferol (vitamin D3) 50 mcg (2,000 unit) capsule 50 mcg PO DAILY acetaminophen [Arthritis Pain Relief (acetam)] 650 mg tablet extended release 650 mg PO Q12H PRN (Reason: pain) (DME) pen needle, diabetic [BD Ultra-Fine Short Pen Needle] 31 gauge x 5/16 needle See Rx Instructions .ROUTE .MEDSUPPLY Qty: 400 1RF Rx Instructions: Use with insulin injections 4 times daily mecobalamin (vitamin B12) 500 mcg tablet,chewable 500 mcg PO DAILY Rx Instructions: takes 4 days per week magnesium oxide 400 mg (241.3 mg magnesium) tablet 250 mg PO DAILY (DME) blood-glucose meter [[employer] GroupTouch Verio Reflect Meter] Misc See Rx Instructions .Route Rx Instructions: Take BS QID (DME) lancets [OneTouch Delica Plus Lancet] 33 gauge misc See Rx Instructions .Route Rx Instructions: As directed PreserVision AREDS 2,148 mcg-113 mg-45 mg-17.4mg tablet 2 tablet PO BID Rx Instructions: administer with AM and PM meals amlodipine 5 mg tablet 5 mg PO DAILY carvedilol 6.25 mg tablet 6.25 mg PO BID Kerendia 10 mg tablet 10 mg PO DAILY Qty: 90 3RF furosemide 20 mg tablet 20 mg PO .COMPLEX PRN Rx Instructions: 20 mg orally PRN; for swollen legs albuterol sulfate [Ventolin HFA] 90 mcg/actuation HFA aerosol inhaler 1 puff INHALATION Q4H PRN (Reason: Shortness Of Breath) Qty: 8.5 5RF (DME) OneTouch Verio test strips Strip See Rx Instructions .ROUTE .COMPLEX Qty: 100 3RF Dose Instruction: USE TO CHECK BLOOD SUGARS TWICE DAILY Rx Instructions: USE TO CHECK BLOOD SUGARS TWICE DAILY losartan 100 mg tablet 100 mg PO DAILY Qty: 90 1RF simvastatin 20 mg tablet 20 mg PO QHS Qty: 90 1RF Rx Instructions: TAKE 1 TABLET BY MOUTH AT BEDTIME levothyroxine 100 mcg tablet 100 mcg PO DAILY 90 Days Qty: 90 1RF insulin degludec [Tresiba FlexTouch U-100] 100 unit/mL (3 mL) insulin pen 20 unit subcut QHS Qty: 18 1RF insulin aspart U-100 [Novolog FlexPen U-100 Insulin] 100 unit/mL (3 mL) insulin pen 4 unit subcut TIDWMEAL MDD 33 Qty: 30 1RF Rx Instructions: 4 units before meals if skipping meal-do not take anything blood sugar less than 100--> does not take anything blood sugar [id number] 2 units blood sugar 140-160- 4 units blood sugar 161-180- 6 units blood sugar >181- 7 units Follow-up/Referrals: Mamie Huber APRN [Advanced Practice Nurse] - (OBAnjel Ross MD [Primary Care Provider] - Time of Disposition: 18:02
[2025-01-20 16:50] LABS: Alanine Aminotransferase 18 U/L (6-35); Alkaline Phosphatase 77 U/L (38-126); Anion Gap 9 mmol/L (4-12); Aspartate Amino Transferase 30 U/L (14-36); Bilirubin,Total 0.3 mg/dL (0.2-1.3); Blood Urea Nitrogen 24 mg/dL (7-17); Calcium 9.8 mg/dL (8.4-10.2); Carbon Dioxide 23 mmol/L (22-30); Chloride 103 mmol/L (98-107); Estimated Glomerular Filt Rate 37; Glucose 122 mg/dL (65-110); Potassium 4.4 mmol/L (3.4-5.0); Sodium 135 mmol/L (137-145); Total Protein 6.9 g/dL (6.3-8.2)
[2025-01-20] MEDS: SODIUM CHLORIDE 0.9% IV 1,000 ML 999 ML IV CONT (17:06)
[2025-01-20 17:15] LABS: Add Urine Microscopic? YES; Appearance Urine Clear (Clear); Bacteria Urine None Seen /hpf; Bilirubin Urine Negative (Negative); Blood Urine 1+ (Negative); Color Urine Yellow (Yellow); Glucose Urine UA Negative (Negative); Ketones Urine Negative (Negative); Leukocyte Esterase Ur 2+ LEU/UL (Negative); Nitrate Urine Negative (Negative); Non Pathogenic Casts 0-2; Protein Urine Negative (Negative); RBC Urine 0-2 /hpf (0-2); Specific Grav Ur 1.006 (1.001-1.035); Squamous Epithelial Cell Urine None Seen /hpf (Few); Urobilinogen Urine 0.2 mg/dL (<2.0); pH Urine 7.5 (5.0-9.0)
== END 2025-01-20 19:01 | disposition home or self-care (01) ==
PROVIDERS: Emergency Provider Physician Assistant; PCP Family Medicine
DX: N95.0 Postmenopausal bleeding (principal); N84.1 Polyp of cervix uteri; R93.89 Abnormal findings on diagnostic imaging of other specified body structures; I12.9 Hypertensive chronic kidney disease with stage 1 through stage 4 chronic kidney disease, or unspecified chronic kidney disease; E11.22 Type 2 diabetes mellitus with diabetic chronic kidney disease; N18.30 Chronic kidney disease, stage 3 unspecified; R91.1 Solitary pulmonary nodule; E03.9 Hypothyroidism, unspecified; J45.909 Unspecified asthma, uncomplicated; M19.90 Unspecified osteoarthritis, unspecified site; E78.5 Hyperlipidemia, unspecified; R82.998 Other abnormal findings in urine
CPT/HCPCS: 36415; 76856; 80053; 81001; 85025; 85610; 85730; 87086; 96360; 99284; J7030

== ENCOUNTER 2025-01-23 12:45 | Outpatient (CLI) | payer MEDICARE, SELFPAY ==
--- OUTSIDE RECORDS SUMMARY | 2025-01-23 12:49 | XMS_ITS | Clinical Summary ---
Author Organization [facility] true [facility] Address [address] [place] [address] Care Team Providers Care Piercing Artist Name Role Phone Arin Knapp MD Primary [...] mouth daily with supper. Active Vit C-Vit M-Inhyee-IzRu- Lutein (PRESERVISION) 226-90-0.8-5 mg Capsule Take 1 Capsule by mouth 2 times daily. Active Blood-Glucose Meter,Continuo us (Dexcom G6 Process Development Associate) [place] [facility]Non-Drug; Combo Route) route. 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 Gender Identity Not on file Sexual Orientation [...] 10:01 AM CDT Height 157.5 cm (5' 2) 06/14/2022 1:34 PM DOWEL PIN WORKER Body Mass Index 47.88 06/14/2022 1:34 PM DOWEL PIN WORKER Plan of Treatment Upcoming Encounters Date Type Department Care Team (Late st Contact Info) Description 10/16/2025 10:00 AM CDT Office Visit [facility] Oncology and Hematology [facility] [address] [place] [address] [facility] [address] [place] [address] Mau Lee MD [address] [facility] [address] [place] [address] Health Maintenance Due Date Last [...] 2024 05/02/2017, 2015 COVID-19 Vaccine (2 - 2023- season) 2024 Insurance [facility] MCR Care Teams Piercing Artist Relationship Specialty Start Date End Date Arin Knapp MD [address] [place] [phone] PCP - General Family Practice 06/14/22
--- OUTSIDE RECORDS SUMMARY | 2025-01-23 12:50 | XMS_ITS | Referral Summary ---
Author Organization [facility] Address [address] [place] [address] Care Team Providers Care Cycle Repairer Name Role Phone Arin Knapp MD Primary Care Provider Encounters Date Type Department Care Team Description 01/01/2025 12:15 PM CDT - 01/01/2025 11:59 PM CDT Hospital Encounter [facility] [address] [place] [address] Mild intermittent asthma without complication; Allergic rhinitis, unspecified seasonality, unspecified trigger; Chronic cough; Pulmonary eosinophilia; Multiple pulmonary nodules; BMI 50.0-59.9, adult (HCC) Discharge Disposition: Discharge to home or self care 10/25/2024 1:00 PM CDT Office Visit [facility] Pulmonology [address] [place] [address] Mense, Melina, CHEMICAL PROCESSING LABORER Mild intermittent asthma without complication (Primary Dx); [...] ULTRA-FINE SHORT PEN NEEDLE 31 gauge x /16 needle 11/08/19 19 Active metFORMIN (GLUCOPHAGE) 500 [...] (two) times a day 08/19/19 21 Active jjqfnyaic-HO-VV- acetaminoph-GG 5-325-200 mg (day-night) tablets, sequential Take by mouth Activ e LEVEMIR 100 unit/mL (3 mL) pen for injection 11/02/19 21 Active blood-glucose meter [facility] Active blood glucose diagnostic strip One touch Act pritesh UNABLE TO FIND Touch Delica Plus needles Active losartan (COZAAR) 50 mg tablet 07/22/20 21 Active Euflexxa 10 mg/mL(mw 2.4 -3.6 million) syringe 01/29/20 22 Active cyanocobalamin (Vitamin B-12) 1,000 mcg tabletIndication s:Prevention of Vitamin B12 Deficiency Take 1 tablet (1,000 mcg total) by mouth daily Active blood-glucose meter,continuous (Dexcom G6 Talent Sourcing Specialist) [facility] Activ e vit M-E-zseepg-zinc- lutein 226-90-0.8-5 mg capsule Take 1 capsule [...] pollen 03/2021 Community acquired pneumonia, bilateral 08/27/19 21 Loculated pleural effusion 08/27/2020 Leukocytosis 04/16/2016 Immunizations [...] on file Legal Sex Female 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 Gender Identity Female 10/27/2020 8:24 AM CDT [...] CDT Plan of Treatment Not on file Procedures Procedure Name Priority Date/Time Associated Diagnosis Comments PULMONARY FUNCTION TEST (PFT) Routine 01/01/2025 1:28 PM CDT Mild intermittent asthma without complication Allergic rhinitis, unspecified seasonality, unspecified trigger Chronic cough Pulmonary eosinophilia Multiple pulmonary nodules BMI 50.0-59.9, adult (HCC) from Last 3 Months Results * Pulmonary Function Test - (01/01/2025 1:28 PM CDT) FVC PRE 2.54 L 01/01/2025 1:20 PM CDT [facility] FEV1 PRE 1.89 L 01/01/2025 1:20 PM CDT [facility] [id number] 74.57 % 01/01/2025 1:20 PM CDT [facility] PSE15-91% PRE 1.41 L/s 01/01/2025 1:20 PM CDT [facility] PEF PRE 7.08 L/s 01/01/2025 1:20 PM CDT [facility] DLCOc SB 13.59 ml/(min*mm Hg) 01/01/2025 1:20 PM CDT [facility] DLCO/VA PRE 4.48 ml/(min*mm Hg*L) 01/01/2025 1:20 PM CDT [facility] VA 3.04 L 01/01/2025 1:20 PM CDT [facility] TLC PRE 4.83 L 01/01/2025 1:20 PM CDT [facility] VC PRE 2.54 L 01/01/2025 1:20 PM CDT [facility] IC PRE 1.82 L 01/01/2025 1:20 PM CDT [facility] FRC PL PRE 2.97 L 01/01/2025 1:20 PM CDT [facility] ERV PRE 0.68 L 01/01/2025 1:20 PM CDT [facility] RV PRE 2.29 L 01/01/2025 1:20 PM CDT [facility] RAW PRE 3.18 cmH2O*s/L 01/01/2025 1:20 PM CDT [facility] VTG 3.11 L 01/01/2025 1:20 PM CDT [facility] Anatomical Region Laterality Modality PFT 01/01/2025 12:2 4 PM CDT Narrative 01/01/2025 5:37 PM CDT Spirometry is normal. Flow volume loop has normal configuration. Lung volumes are normal. Gas exchange capacity is moderately reduced. Patient did not require supplemental oxygen on ambulatory oximetry test. Electronically signed by Nick Duval MD Melina Henderson CHEMICAL PROCESSING LABORER PFT ORDERABLES Final Result from Last 3 Months Insurance AETNA MEDICARE [employer] [facility] ADV REF [facility] MEDICARE Address: [facility] [id number] [place] [address] [facility] AETNA MEDICARE Care Teams Cycle Repairer Relationship Specialty Start Date End Date Arin Knapp MD PCP - General 07/18/20
--- OUTSIDE RECORDS SUMMARY | 2025-01-23 12:50 | XMS_ITS | Clinical Summary ---
Author Organization [facility] [place] [facility] Address [address] [place] [address] Care Team Providers Care Sausage Grinder Name Role Phone Arin Knapp MD Primary [...] (two) times a day 08/19/19 21 Active fnxifzjyo-NX-OS- acetaminoph-GG 5-325-200 mg (day-night) tablets, sequential Take by mouth Activ e LEVEMIR 100 unit/mL (3 mL) pen for injection 11/02/19 21 Active blood-glucose meter [facility] Active blood glucose diagnostic strip One touch Act pritesh UNABLE TO FIND Touch Delica Plus needles Active losartan (COZAAR) 50 mg tablet 07/22/20 21 Active Euflexxa 10 mg/mL(mw 2.4 -3.6 million) syringe 01/29/20 22 Active cyanocobalamin (Vitamin B-12) 1,000 mcg tabletIndication s:Prevention of Vitamin B12 Deficiency Take 1 tablet (1,000 mcg total) by mouth daily Active blood-glucose meter,continuous (Dexcom G6 Allergist Immunologist) misc Activ e vit Z-Y-zaogcc-zinc- lutein 226-90-0.8-5 mg capsule Take 1 capsule by mouth 2 (two) times a day Active Ozempic 1 mg/dose (4 mg/3 mL) pen injector injection INJECT 1 MG (0.75 ML) SUBCUTANEOUSLY WEEKLY FOR 90 DAYS Active albuterol HFA (PROVENTIL HFA,VENTOLIN HFA,PROAIR HFA) 90 mcg/actuation inhaler INHALE 1 PUFF BY MOUTH EVERY 4 HOURS NEEDED FOR SHORTNESS OF BREATH 09/27/19 Active meloxicam (MOBIC) 7.5 mg tablet Take 1 tablet (7.5 mg total) by mouth daily 10/13/19 24 Active carvediloL (COREG) 6.25 mg tablet TAKE 1 TABLET BY MOUTH EVERY 12 HOURS MUST ADMINISTER WITH A MEAL/FOOD 08/08/19 Active losartan (COZAAR) 100 mg tablet Take 1 tablet (100 mg total) by mouth daily 09/18/19 Active Active Problems Problem Noted Date Diagnosed [...] - 01/01/2025 11:59 PM CDT Hospital Encounter [facility] [address] [place] [address] Mild intermittent asthma without complication; Allergic rhinitis, unspecified seasonality, unspecified trigger; Chronic cough; Pulmonary eosinophilia; Multiple pulmonary nodules; BMI 50.0-59.9, adult (HCC) Discharge Disposition: Discharge to home or self care 10/25/2024 1:00 PM CDT Office Visit [facility] Pulmonology [address] [facility] [address] [place] [id number] Melina Henderson, VANI Mild intermittent asthma without [...] on file 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 Gender Identity Female 10/27/2020 8:24 AM [...] 2025 05/02/2017, 04/16/2016, 04/15/2016, Additional history exists Procedures Procedure Name Priority Date/Time Associated Diagnosis Comments PULMONARY FUNCTION TEST (PFT) Routine 01/01/2025 1:28 PM CDT Mild intermittent asthma without complication Allergic rhinitis, unspecified seasonality, unspecified trigger Chronic cough Pulmonary eosinophilia Multiple pulmonary nodules BMI 50.0-59.9, adult ([facility]) from Last 3 Months Results * Pulmonary Function Test - (01/01/2025 1:28 PM CDT) Pathologist [facility] FVC PRE 2.54 L 01/01/2025 1:20 PM CDT [facility] FEV1 PRE 1.89 L 01/01/2025 1:20 PM CDT [facility] [id number] 74.57 % 01/01/2025 1:20 PM CDT [facility] POY81-22% PRE 1.41 L/s 01/01/2025 1:20 PM CDT [facility] PEF PRE 7.08 L/s 01/01/2025 1:20 PM CDT [facility] DLCOc SB 13.59 ml/(min*mm Hg) 01/01/2025 1:20 PM CDT [facility] DLCO/VA PRE 4.48 ml/(min*mm Hg*L) 01/01/2025 1:20 PM CDT [facility] VA 3.04 L 01/01/2025 1:20 PM CDT [facility] TLC PRE 4.83 L 01/01/2025 1:20 PM CDT [facility] VC PRE 2.54 L 01/01/2025 1:20 PM CDT [facility] IC PRE 1.82 L 01/01/2025 1:20 PM CDT [facility] FRC PL PRE 2.97 L 01/01/2025 1:20 PM CDT [facility] ERV PRE 0.68 L 01/01/2025 1:20 PM CDT [facility] RV PRE 2.29 L 01/01/2025 1:20 PM CDT [facility] RAW PRE 3.18 cmH2O*s/L 01/01/2025 1:20 PM CDT [facility] VTG 3.11 L 01/01/2025 1:20 PM CDT [facility] Anatomical Region Laterality Modality PFT 01/01/2025 12:2 4 PM CDT Narrative 01/01/2025 5:37 PM CDT Spirometry is normal. Flow volume loop has normal configuration. Lung volumes are normal. Gas exchange capacity is moderately reduced. Patient did not require supplemental oxygen on ambulatory oximetry test. Electronically signed by Nick Duval MD Melina Henderson NP PFT ORDERABLES Final Result from Last [address] [place] [address] T MEDICARE [facility] MEDICARE Address: [facility] [id number] [place] [phone] [facility] AETNA [facility] ADV [place] [address] [employer] [facility] AET MEDICARE Care Teams Sausage Grinder Relationship Specialty Start Date End Date Arin Knapp MD PCP - General 07/18/20
--- OUTSIDE RECORDS SUMMARY | 2025-01-23 12:50 | XMS_ITS | Clinical Summary ---
Author Organization [facility] Address [address] [place] [address] Care Team Providers Care Toolroom Helper Name Role Phone Unavailable Primary Care Provider [...]
[2025-01-23 13:10] LABS: Hematocrit 33.5 % (37.0-47.0); Hemoglobin 10.6 g/dL (12.0-15.0); Mean Corpuscular HGB Conc 31.6 g/dl (32-36); Mean Corpuscular Hemoglobin 29.4 pg (26-34); Mean Corpuscular Volume 93.1 fl (80-100); Platelet Count Result 304 k/mm3 (150-375); Red Blood Count 3.60 M/mm3 (4.2-5.4); White Blood Count 12.3 K/mm3 (4.5-10.0)
== END 2025-01-23 12:46 | disposition home or self-care (01) ==
PROVIDERS: PCP Family Medicine; Visit Provider Nurse Practitioner Family
DX: N93.9 Abnormal uterine and vaginal bleeding, unspecified (principal)
CPT/HCPCS: 36415; 85027

== ENCOUNTER 2025-01-30 01:47 | Day surgery (SDC) | payer MEDICARE, SELFPAY ==
--- NOTE | 2025-01-24 14:57 | PC.NURSE ---
Report to the Outpatient Waiting Room, entrance under the green pavilion located off [facility], at time _1:30 pm on date __01/30/25 . Planned Procedure Time: __3:15 pm .? Time changes happen often and if your time is changed the preop area will call you the afternoon before. - You and your visitor will be asked to self-screen and do not enter if you have any COVID symptoms. Please call surgeon if you need to reschedule. - A mask is optional within the hospital at this time. Patients may have clear liquids (water, carbonated beverages, clear teas, apple juice) until 3 hours prior to surgery ( 12:30 pm) with a maximum of 20 ounces. - No food from midnight until time of surgery and no smoking, or chewing tobacco (or any form of nicotine). No chewing gum, candy or mints. - Take only the following medications with a SIP of water on the morning of surgery: ___,CARVEDILOL,LEVOTHYROXINE, INHALER IF NEEDED DO NOT STOP ANY OF YOUR OTHER PRESCRIPTION MEDICATIONS PRIOR TO SURGERY EXCEPT THE FOLLOWING Hold all vitamins and supplements for 3 days per anesthesiologist.LAST DOSE 01/26/25 Medications to discontinue per physician NONE TAKE 1/2 AM INSULIN DOSE Please no make-up, nail ghanaian, hairspray, perfume, deodorant, or body powder the day of surgery.? No jewelry (including any body piercings) or valuables the day of surgery, leave them at home.? Please take a shower or bath the night before, or the morning of, surgery with an antibacterial soap.? Wear comfortable, loose fitting clothing.? Children are encouraged to wear pajamas. - Jewelry must be removed prior to entering the operating room.? Rings and piercings that are not removed may be cut off. - The hospital will not accept responsibility for valuables.? - Please leave all valuables, including medications, at home the day of surgery. If you are going home after surgery, a licensed courier delivery driver must drive you home.? - NO public transportation without another adult if you receive anesthesia. - We recommend that an adult stay with you for 24 hours following discharge. - We also recommend that you do not drive, make important decision, drink alcoholic beverages, or take any drugs that were not prescribed by your health care provider for at least 24 hours after your discharge time. For Pediatric surgeries, we recommend two adults accompany the child home. Follow any additional instructions given to you from your surgeon. Telephone instructions given to __PATIENT and asked if any additional questions and then verbalized understanding. Patient advised to call surgeon office or pre surgery nurse liaison [phone] if any additional questions.
[2025-01-24 15:22] VITALS: BMI 47.7
--- OUTSIDE RECORDS SUMMARY | 2025-01-30 01:51 | XMS_ITS | Referral Summary ---
Author Organization [facility] [place] [facility] Address [address] [place] [address] Care Team Providers Care Crop Picker Name Role Phone Arin Knapp MD Primary Care Provider Encounters Date Type Department Care Team Description 01/01/2025 12:15 PM CDT - 01/01/2025 11:59 PM CDT Hospital Encounter [facility] Res[facility] [address] [place], [place] [id number] Mild intermittent asthma without complication; Allergic rhinitis, unspecified seasonality, unspecified trigger; Chronic cough; Pulmonary eosinophilia; Multiple pulmonary nodules; BMI 50.0-59.9, adult (HCC) Discharge Disposition: Discharge to home or self care from Last 3 Months Allergies Active Allergy [...] ULTRA-FINE SHORT PEN NEEDLE 31 gauge x 5/16 needle 11/08/19 19 Active metFORMIN (GLUCOPHAGE) 500 [...] (two) times a day 08/19/19 21 Active ywflfxrrr-XX-IV- acetaminoph-GG 5-325-200 mg (day-night) tablets, sequential Take by mouth Activ e LEVEMIR 100 unit/mL (3 mL) pen for injection 11/02/19 21 Active blood-glucose meter misc Active blood glucose diagnostic strip One touch Act pritesh UNABLE TO FIND Touch Delica Plus needles Active losartan (COZAAR) 50 mg tablet 07/22/20 21 Active Euflexxa 10 mg/mL(mw 2.4 -3.6 million) syringe 01/29/20 22 Active cyanocobalamin (Vitamin B-12) 1,000 mcg tabletIndication s:Prevention of Vitamin B12 Deficiency Take 1 tablet (1,000 mcg total) by mouth daily Active blood-glucose meter,continuous (Dexcom G6 Speech Language Therapist) misc Activ e vit R-U-ybepox-zinc- lutein 226-90-0.8-5 mg capsule Take 1 capsule [...] on file 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59 ml/(min*mm Hg) 01/01/2025 1:20 PM CDT [facility] DLCO/VA PRE 4.48 ml/(min*mm Hg*L) 01/01/2025 1:20 PM CDT [facility] VA 3.04 L 01/01/2025 1:20 PM CDT [facility] TLC PRE 4.83 L 01/01/2025 1:20 PM CDT [facility] VC PRE 2.54 L 01/01/2025 1:20 PM CDT [facility] IC PRE 1.82 L 01/01/2025 1:20 PM CDT [facility] FRC PL PRE 2.97 L 01/01/2025 1:20 PM CDT [facility] ERV PRE 0.68 L 01/01/2025 1:20 PM CDT [facility] RV PRE 2.29 L 01/01/2025 1:20 PM CDT [facility] RAW PRE 3.18 cmH2O*s/L 01/01/2025 1:20 PM CDT [facility] VTG 3.11 L 01/01/2025 1:20 PM CDT [facility] Anatomical Region Laterality Modality PFT 01/01/2025 [...] from Last 3 Months Insurance AETNA MEDICARE [facility] AETNA MCR ADV REF [employer] [facility] Care Teams Crop Picker Relationship Specialty Start Date End Date Arin Knapp MD PCP - General 07/18/20
--- OUTSIDE RECORDS SUMMARY | 2025-01-30 01:51 | XMS_ITS | Clinical Summary ---
Author Organization [facility] [place] [facility] Address [address] [place] [address] Care Team Providers Care Family Resource Coordinator Name Role Phone Arin Knapp MD Primary [...] (two) times a day 08/19/19 21 Active bovizmrrz-IN-RS- acetaminoph-GG 5-325-200 mg (day-night) tablets, sequential Take by mouth Activ e LEVEMIR 100 unit/mL (3 mL) pen for injection 11/02/19 21 Active blood-glucose meter [facility] Active blood glucose diagnostic strip One touch Act pritesh UNABLE TO FIND Touch Delica Plus needles Active losartan (COZAAR) 50 mg tablet 07/22/20 21 Active Euflexxa 10 mg/mL(mw 2.4 -3.6 million) syringe 01/29/20 22 Active cyanocobalamin (Vitamin B-12) 1,000 mcg tabletIndication s:Prevention of Vitamin B12 Deficiency Take 1 tablet (1,000 mcg total) by mouth daily Active blood-glucose meter,continuous (Dexcom G6 Lieutenant Shift Supervisor) misc Activ e vit L-G-ldyamg-zinc- lutein 226-90-0.8-5 mg capsule Take 1 capsule [...] - 01/01/2025 11:59 PM CDT Hospital Encounter [facility] [address] [place] [address] Mild intermittent asthma without complication; Allergic rhinitis, unspecified seasonality, unspecified trigger; Chronic cough; Pulmonary eosinophilia; Multiple pulmonary nodules; BMI 50.0-59.9, adult (HCC) Discharge Disposition: Discharge to home or self care from Last 3 Months Immunizations Immunization Administration [...] on file 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) from Last 3 Months Results * Pulmonary Function Test - (01/01/2025 1:28 PM CDT) FVC PRE 2.54 L 01/01/2025 1:20 PM CDT [facility] FEV1 PRE 1.89 L 01/01/2025 1:20 PM CDT [facility] [id number] 74.57 % 01/01/2025 1:20 PM CDT [facility] MZT67-14% PRE 1.41 L/s 01/01/2025 1:20 PM CDT [facility] PEF PRE 7.08 L/s 01/01/2025 1:20 PM CDT [facility] DLCOc SB 13.59 ml/(min*mm Hg) 01/01/2025 1:20 PM CDT [facility] DLCO/VA PRE 4.48 ml/(min*mm Hg*L) 01/01/2025 1:20 PM CDT [facility] VA 3.04 L 01/01/2025 1:20 PM CDT [facility] TLC PRE 4.83 L 01/01/2025 1:20 PM CDT [facility] VC PRE 2.54 L 01/01/2025 1:20 PM CDT [facility] IC PRE 1.82 L 01/01/2025 1:20 PM CDT [facility] FRC PL PRE 2.97 L 01/01/2025 1:20 PM CDT [facility] ERV PRE 0.68 L 01/01/2025 1:20 PM CDT [facility] RV PRE 2.29 L 01/01/2025 1:20 PM CDT [facility] RAW PRE 3.18 cmH2O*s/L 01/01/2025 1:20 PM CDT [facility] VTG 3.11 L 01/01/2025 1:20 PM CDT [facility] Anatomical Region Laterality Modality PFT 01/01/2025 12:2 [...] from Last 3 Months Insurance AETNA MEDICARE [facility] AETNA [facility] ADV REF [facility] MEDIC[facility] Care Teams Family Resource Coordinator Relationship Specialty Start Date End Date Arin Knapp MD PCP - General 07/18/20
--- OUTSIDE RECORDS SUMMARY | 2025-01-30 01:51 | XMS_ITS | Clinical Summary ---
Author Organization [facility] Address [address] [place] [place] [address] Care Team Providers Care Custom Feed Corn Operator Name Role Phone Arin Knapp MD Primary [...] mouth daily with supper. Active Vit C-Vit B-Erbjqf-NbMf- Lutein (PRESERVISION) 226-90-0.8-5 mg Capsule Take 1 Capsule by mouth 2 times daily. Active Blood-Glucose Meter,Continuo us (Dexcom G6 Master Dyer) by [facility].(Non-Drug; Combo Route) route. 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 Gender Identity Not on file Sexual Orientation [...] 157.5 cm (5' 2) 06/14/2022 1:34 PM ROUGH AND TRUING MACHINE OPERATOR Body Mass Index 47.88 06/14/2022 1:34 PM ROUGH AND TRUING MACHINE OPERATOR Plan of Treatment Upcoming Encounters Date Type Department Care Team (Late st Contact Info) Description 10/16/2025 10:00 AM CDT Office Visit [facility] Oncology and Hematology [facility] [address] [place] [address] [facility] [address] [place] [address] Mau Lee MD [address] [facility] [address] [place] [address] Health Maintenance Due Date Last [...] 3) 06/11/2016 04/16/2016, 03/05 OSTEOPOROSIS SCREENING 2019 COVID-19 Vaccine (2 - season) 2024 INFLUENZA VACCINE (#1) 2025 05/02/2017, 2015 Insurance [facility] MCR Care Teams Custom Feed Corn Operator Relationship Specialty Start Date End Date Arin Knapp MD [address] [place] [phone] PCP - General Family Practice 06/14/22
--- OUTSIDE RECORDS SUMMARY | 2025-01-30 01:51 | XMS_ITS | Clinical Summary ---
Author Organization [facility] Address [address] [place] [address] Care Team Providers Care Geoscience Professor Name Role Phone Unavailable Primary Care Provider [...]
--- NOTE | 2025-01-30 08:58 | P.HP_ITS ---
H&P: HPI History of Present Illness Date/Time: 01/30/25 08:58 Chief Complaint: Postmenopausal vaginal bleeding Narrative: 69 y/o nulligravida with vaginal bleeding. Exam in the office showed polyps prolapsing through the cervix. These were too uncomfortable to remove in the office. I have offered her hysteroscopy with dilation and sharp curettage and cervical polypectomy. 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 Retinopathy Bilateral primary osteoarthritis of knee Osteoarthritis of right knee Wears glasses BMI greater than 40 Degenerative joint disease of knee Diverticulitis of sigmoid colon (~10/2021) Type 2 diabetes mellitus without complications Hypomagnesemia Insomnia De Quervain's tenosynovitis, bilateral Dyslipidemia Vitamin D deficiency Environmental allergies Pneumonia 06/2020 Hypothyroidism, unspecified Essential hypertension Asthma Surgical History Surgical History History of carpal tunnel release of both wrists [id number] History of thoracentesis 06/2020 - Right loculated pleural effusion History of hand surgery (~1993) b/l - Multiple surgeries 2003 Family History Family History Father Hypertension Malignant neoplasm of prostate Family history of obesity Family history of cataracts Family history of congestive heart failure DVT (deep venous thrombosis) Mother Family history of hypothyroidism Family history of heart disease in male family member before age 55 Family history of obesity Family history of lung disease Family history of hearing loss Grandparent Family history of thyroid disease Family history of obesity Cerebrovascular accident Family history of arthritis Family history of congestive heart failure Diabetes mellitus Sibling Family history of malignant neoplasm of brain Family history of malignant neoplasm of kidney Family history of heart disease in male family member before age 55 Brain aneurysm Other Family history of cardiovascular disease Family history of lung cancer Family history of malignant neoplasm Neuropathy Social History Social History Smoking packs per day: 0.15 Smoking cigarettes per day: 3.0 Years smoked: 3 Smoking pack-years: 0.45 Smoking status: Former smoker Tobacco type: cigarettes Second hand tobacco smoke exposure: No Smoking end date: 09/23/75 Additional smoking assessment comments: smoked [id number] per [place] Alcohol intake: current Alcohol use details: special occasions Substance use: never Substance use type: does not use Do You Feel Safe in your Home?: Yes Lack of Transportation: No Lack of Food: Never True Current Housing: I Have Housing Concerned About Future Housing: No Difficulty Paying Gas/Electric Bills: No Difficulty Paying for Meds: No Currently Unemployed: No Education: Master's Degree or Higher Difficulty w/ Childcare or Family Care: No Living arrangements: with family Additional living arrangements comments: spouse Occupation/Education: retired Additional occupation/education comments: [id number] Gender identity (if verbalized by the patient): Female Sexual Orientation (if Verbalized by the Patient): Straight or Heterosexual Spiritual care concerns: No Meds Home Medications and Allergies Home Medications ?Medication ?Instructions ?Recorded ?Confirmed ?Type blood-glucose meter (EyeVerifyTouch 06/05/21 01/23/25 History Verio Reflect Meter) lancets 33 gauge (OneTouch Delica 06/05/21 01/23/25 History Plus Lancet) vitamins A,C,H-tjmr-viszer 2,148 2 tablet PO BID 03/30/22 01/24/25 History mcg-113 mg-45 mg-17.4 mg tablet (PreserVision AREDS) pen needle, diabetic 31 gauge x #400 ea 10/05/22 01/23/25 Rx 5/16 (BD Ultra-Fine Short Pen Needle) albuterol sulfate 90 mcg/actuation 1 puff inhalation Q4H PRN 09/27/23 01/24/25 Rx aerosol inhaler (Ventolin HFA) Shortness Of Breath #8.5 grams cholecalciferol (vitamin D3) 50 50 mcg PO DAILY 05/03/24 01/24/25 History mcg (2,000 unit) capsule mecobalamin (vitamin B12) 500 mcg 500 mcg PO DAILY 09/26/24 01/24/25 History chewable tablet blood sugar diagnostic (OneTouch #100 strips 10/22/24 01/23/25 Rx Verio test strips) acetaminophen 650 mg 650 mg PO Q12H PRN pain 11/08/24 01/24/25 History tablet,extended release (Arthritis Pain Relief (acetaminophen) ER) amlodipine 5 mg tablet 5 mg PO HS 11/08/24 01/24/25 History carvedilol 6.25 mg tablet 6.25 mg PO BID 11/08/24 01/24/25 History furosemide 20 mg tablet 20 mg PO .COMPLEX PRN edema 11/08/24 01/24/25 History magnesium oxide 400 mg (241.3 mg 250 mg PO DAILY 11/08/24 01/24/25 History magnesium) tablet losartan 100 mg tablet 100 mg PO DAILY #90 tabs 11/26/24 01/24/25 Rx finerenone 10 mg tablet (Kerendia) 10 mg PO DAILY #90 tabs 12/19/24 01/24/25 Rx levothyroxine 100 mcg tablet 100 mcg PO DAILY 90 days #90 tabs 12/28/24 01/24/25 Rx simvastatin 20 mg tablet 20 mg PO QHS #90 tabs 12/28/24 01/24/25 Rx insulin degludec 100 unit/mL (3 20 unit (0.2 mL) subcut QHS #18 mL 01/14/25 01/24/25 Rx mL) subcutaneous pen (Tresiba FlexTouch U-100 insulin) insulin aspart U-100 100 unit/mL 4 unit (0.04 mL) subcut TIDWMEAL 01/15/25 01/24/25 Rx (3 mL) subcutaneous pen (Novolog #30 mL FlexPen U-100 Insulin aspart) Allergies Allergy/AdvReac Type Severity Reaction Status Date / Time hydrocortisone Allergy Mild TEARS Verified 01/24/25 14:59 STOMACH UP poison yemi extract Allergy Unknown Unknown Verified 01/24/25 14:59 povidone Allergy Unknown Unknown Verified 01/24/25 14:59 povidone-iodine Allergy Unknown RASH Verified 01/24/25 14:59 soap Allergy Unknown Rash Verified 01/24/25 14:59 Sulfa (Sulfonamide Allergy Unknown Rash Verified 01/24/25 14:59 Antibiotics) sulfanilamide Allergy Unknown Rash Verified 01/24/25 14:59 talc Allergy Unknown Rash Verified 01/24/25 14:59 fluconazole (From Diflucan) Allergy Rash Verified 01/24/25 14:59 cetirizine (From Zyrtec) AdvReac Severe leg cramps Verified 01/24/25 14:59 avocado AdvReac Intermediate Rash Verified 01/24/25 14:59 empagliflozin (From AdvReac Mild Rash Verified 01/24/25 14:59 Jardiance) lactose AdvReac Mild Unknown Verified 01/24/25 14:59 lisinopril AdvReac Mild Cough Verified 01/24/25 14:59 semaglutide (From Rybelsus) AdvReac Mild Nausea Verified 01/24/25 14:59 Exam Const: Orientation/consciousness: patient oriented x3 Other: Well-developed, well-nourished female in no acute distress. Neck: Thyroid: thyroid normal Lymphatic: no lymphadenopathy noted (in neck, axilla or inguinal nodes) Resp: Effort & Inspection: normal respiratory effort Auscultation: clear to auscultation bilaterally Cardio: Rate: regular rate Rhythm: regular rhythm Heart sounds: S1 normal heart sound present and S2 normal heart sound present GI: Other: ABD: Soft, nontender, nondistended. No guarding or rebound tenderness. No hepatosplenomegaly. : General: Yes no CVA tenderness Other: External genitalia: normal female hair distribution, without lesion. Urethral meatus: no lesion, non prolapsed. Bladder: no mass, nontender Vagina: atrophic, without lesion or discharge. No cystocele or rectocele. Cervix: polyps prolapsing through the external cervical os. Uterus: small, anteverted, freely mobile, nontender Adnexa: no mass or tenderness. Anus/perineum: no lesions, nontender Back/Spine/Pelvis: Back: no CVA tenderness Skin: General skin exam: normal color and no rashes or lesions noted Neuro: General: patient oriented x3 Extrem: Other: Extremities: nontender with no edema Psych: Mental Status: mental status grossly normal Affect: normal affect Assessment and Plan Assessment and plan (1) Postmenopausal bleeding: Code(s): N95.0 - Postmenopausal bleeding Status: Acute Assessment and Plan: A: Postmenopausal vaginal bleeding with polyps prolapsing through the cervix. P: Offered hysteroscopy with dilation and sharp curettage and polypectomy. She understands risks of surgery to include risks of anesthesia, risks of pain, infection, bleeding, blood products, thromboembolic phenomena and damage to adjacent structures such as bowel, bladder, ureters, blood vessels and nerves. She understands all these risks and elects to proceed with surgery.
[2025-01-30 13:43] VITALS: BP 144/65; PULSE 71; RESP 18; TEMP 38; O2SAT 100
[2025-01-30 13:49] LABS: Add Urine Microscopic? YES; Appearance Urine Clear (Clear); Glucose Urine UA Negative (Negative); Leukocyte Esterase Ur 3+ LEU/UL (Negative); Nitrate Urine Negative (Negative); Non Pathogenic Casts 0-2; Specific Grav Ur 1.005 (1.001-1.035)
--- NOTE | 2025-01-30 13:55 | P.PNAN_ITS ---
Anes - Initial Pre Proc Eval Procedure: Operation Date: 01/30/25 15:15 Proposed Procedures p Hysteroscopy Dilation and Curettage - Lamont Mcrae MD Date/Time: 01/30/25 13:55 Surgeon: Lamont Mcrae MD Pre Op Diagnosis: cervical polyps, post menopausal bleeding Patient Data Age: 69 Gender: F Height: 1.57 m Weight: 118.4 kg Allergies Allergy/AdvReac Type Severity Reaction Status Date / Time hydrocortisone Allergy Mild TEARS Verified 01/24/25 14:59 STOMACH UP poison yemi extract Allergy Unknown Unknown Verified 01/24/25 14:59 povidone Allergy Unknown Unknown Verified 01/24/25 14:59 povidone-iodine Allergy Unknown RASH Verified 01/24/25 14:59 soap Allergy Unknown Rash Verified 01/24/25 14:59 Sulfa (Sulfonamide Allergy Unknown Rash Verified 01/24/25 14:59 Antibiotics) sulfanilamide Allergy Unknown Rash Verified 01/24/25 14:59 talc Allergy Unknown Rash Verified 01/24/25 14:59 fluconazole (From Diflucan) Allergy Rash Verified 01/24/25 14:59 cetirizine (From Zyrtec) AdvReac Severe leg cramps Verified 01/24/25 14:59 avocado AdvReac Intermediate Rash Verified 01/24/25 14:59 empagliflozin (From AdvReac Mild Rash Verified 01/24/25 14:59 Jardiance) lactose AdvReac Mild Unknown Verified 01/24/25 14:59 lisinopril AdvReac Mild Cough Verified 01/24/25 14:59 semaglutide (From Rybelsus) AdvReac Mild Nausea Verified 01/24/25 14:59 Home Medications ?Medication ?Instructions ?Recorded ?Confirmed ?Type blood-glucose meter (OneTouch 06/05/21 01/23/25 History Verio Reflect Meter) lancets 33 gauge (OneTouch Delica 06/05/21 01/23/25 History Plus Lancet) vitamins A,C,C-qdxc-pdmqiz 2,148 2 tablet PO BID 03/30/22 01/24/25 History mcg-113 mg-45 mg-17.4 mg tablet (PreserVision AREDS) pen needle, diabetic 31 gauge x #400 ea 10/05/22 01/23/25 Rx 5/16 (BD Ultra-Fine Short Pen Needle) albuterol sulfate 90 mcg/actuation 1 puff inhalation Q4H PRN 09/27/23 01/24/25 Rx aerosol inhaler (Ventolin HFA) Shortness Of Breath #8.5 grams cholecalciferol (vitamin D3) 50 50 mcg PO DAILY 05/03/24 01/24/25 History mcg (2,000 unit) capsule mecobalamin (vitamin B12) 500 mcg 500 mcg PO DAILY 09/26/24 01/24/25 History chewable tablet blood sugar diagnostic (OneTouch #100 strips 10/22/24 01/23/25 Rx Verio test strips) acetaminophen 650 mg 650 mg PO Q12H PRN pain 11/08/24 01/24/25 History tablet,extended release (Arthritis Pain Relief (acetaminophen) ER) amlodipine 5 mg tablet 5 mg PO HS 11/08/24 01/24/25 History carvedilol 6.25 mg tablet 6.25 mg PO BID 11/08/24 01/24/25 History furosemide 20 mg tablet 20 mg PO .COMPLEX PRN edema 11/08/24 01/24/25 History magnesium oxide 400 mg (241.3 mg 250 mg PO DAILY 11/08/24 01/24/25 History magnesium) tablet losartan 100 mg tablet 100 mg PO DAILY #90 tabs 11/26/24 01/24/25 Rx finerenone 10 mg tablet (Kerendia) 10 mg PO DAILY #90 tabs 12/19/24 01/24/25 Rx levothyroxine 100 mcg tablet 100 mcg PO DAILY 90 days #90 tabs 12/28/24 01/24/25 Rx simvastatin 20 mg tablet 20 mg PO QHS #90 tabs 12/28/24 01/24/25 Rx insulin degludec 100 unit/mL (3 20 unit (0.2 mL) subcut QHS #18 mL 01/14/25 01/24/25 Rx mL) subcutaneous pen (Tresiba FlexTouch U-100 insulin) insulin aspart U-100 100 unit/mL 4 unit (0.04 mL) subcut TIDWMEAL 01/15/25 01/24/25 Rx (3 mL) subcutaneous pen (Novolog #30 mL FlexPen U-100 Insulin aspart) Laboratory Tests 01/30/25 13:31 Urine Color Yellow (Yellow) Urine Appearance Clear (Clear) Urine pH 7.5 (5.0-9.0) Ur Specific [place] 1.005 (1.001-1.035) Urine Protein Negative mg/dL (Negative) Urine Glucose (UA) Negative mg/dL (Negative) Urine Ketones Negative mg/dL (Negative) Ur Blood (Man) 2+ H (Negative) Urine Nitrate Negative (Negative) Urine Bilirubin Negative (Negative) Urine Urobilinogen 0.2 mg/dL (<2.0) Leukocyte Esterase Rfl 3+ H SAMANTHA/UL (Negative) Urine RBC 3-5 H /hpf (0-2) Urine WBC >100 H /hpf (0-3) Ur Squamous Epith Cells None seen /hpf (Few) Urine Bacteria None seen /hpf Urine Casts 0-2 Patient hx anesthesia problems: none Family hx anesthesia problems: none Results Review: All pre-operative results and documents have been reviewed as part of the pre-o perative evaluation. 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 Retinopathy Bilateral primary osteoarthritis of knee Osteoarthritis of right knee Wears glasses BMI greater than 40 Degenerative joint disease of knee Diverticulitis of sigmoid colon (~10/2021) Type 2 diabetes mellitus without complications Hypomagnesemia Insomnia De Quervain's tenosynovitis, bilateral Dyslipidemia Vitamin D deficiency Environmental allergies Pneumonia 06/2020 Hypothyroidism, unspecified Essential hypertension Asthma Surgical History Surgical History History of carpal tunnel release of both wrists [id number] History of thoracentesis 06/2020 - Right loculated pleural effusion History of hand surgery (~1993) b/l - Multiple surgeries 1993, 2003 Family History Family History Father Hypertension Malignant neoplasm of prostate Family history of obesity Family history of cataracts Family history of congestive heart failure DVT (deep venous thrombosis) Mother Family history of hypothyroidism Family history of heart disease in male family member before age 55 Family history of obesity Family history of lung disease Family history of hearing loss Grandparent Family history of thyroid disease Family history of obesity Cerebrovascular accident Family history of arthritis Family history of congestive heart failure Diabetes mellitus Sibling Family history of malignant neoplasm of brain Family history of malignant neoplasm of kidney Family history of heart disease in male family member before age 55 Brain aneurysm Other Family history of cardiovascular disease Family history of lung cancer Family history of malignant neoplasm Neuropathy Social History Social History Smoking packs per day: 0.15 Smoking cigarettes per day: 3.0 Years smoked: 3 Smoking pack-years: 0.45 Smoking status: Former smoker Tobacco type: cigarettes Second hand tobacco smoke exposure: No Smoking end date: 09/23/75 Additional smoking assessment comments: smoked [id number] per [place] Alcohol intake: current Alcohol use details: special occasions Substance use: never Substance use type: does not use Do You Feel Safe in your Home?: Yes Lack of Transportation: No Lack of Food: Never True Current Housing: I Have Housing Concerned About Future Housing: No Difficulty Paying Gas/Electric Bills: No Difficulty Paying for Meds: No Currently Unemployed: No Education: Master's Degree or Higher Difficulty w/ Childcare or Family Care: No Living arrangements: with family Additional living arrangements comments: spouse Occupation/Education: retired Additional occupation/education comments: [employer] Gender identity (if verbalized by the patient): Female Sexual Orientation (if Verbalized by the Patient): Straight or Heterosexual Spiritual care concerns: No Anes - Eval Final PreProcedure Day of Procedure 01/30/25 13:55 Patient weight: morbidly obese Heart: regular rate and rhythm Lungs: clear to auscultation Airway: Mallampati scale class II Neurological: alert and oriented Last oral intake: >/= 8 hours ASA classification: III Emergent: no Anesthetic plan: proceed Anesthesia type and monitoring: general GIVS and standard monitoring Results Review: All pre-operative results and documents have been reviewed as part of the pre- operative evaluation. Informed Consent: The patient's anesthetic plan and its attendant risks and benefits were discussed with the patient/family/POA. Questions were solicited and answers provided to the satisfaction of the patient/family/POA.
[2025-01-30] MEDS: LACTATED RINGERS 1,000 ML 30 ML IV CONT (14:05)
--- NOTE | 2025-01-30 14:12 | WPDHPUPDATE1 ---
History and Physical Update Update Date/Time: 01/30/25 14:12 History and Physical has been reviewed, including an updated exam of the patient. There are NO changes in the patient's condition. Risks, benefits, and alternatives have been discussed and questions answered. Patient agrees to proceed with procedure.
[2025-01-30] MEDS: ACETAMINOPHEN 500 MG TABLET 1000 MG PO (14:22)
[2025-01-30] MEDS: LIDOCAINE 1% LOCAL INJ 2 ML AMPUL 10 ML INFILTRATE (14:40)
[2025-01-30] MEDS: cefTRIAXone 1 GM in SODIUM CHLORIDE 0.9% IV 50 ML 100 ML IVPB (15:02)
--- NOTE | 2025-01-30 15:04 | S_PTH ---
PATIENT: Mariposa Jimenez LOC: [facility] U#:[id number] AGE/SX: 69/F ROOM: RE01/30/[address]: Lamont Mcrae MD : 1955 BED: DIS: 01/30/2025 SPEC #: [id number] RECD: 01/31/25 08:14 STATUS: RENATO REZoraida #: [id number] ISMAEL: 01/30/25 15:[address]: Lamont Mcrae DEPT: [facility] Surgical RECD BY: Ally Huntley ENTERED: 01/31/25 08:14 SP TYPE: Surgical OTHR DR: Arin Knapp MD Tissues: A - Endometrial Curettings Procedures: Hematoxylin and Eosin Stain Gross and Microscopic Level 4
--- NOTE | 2025-01-30 15:09 | W.PM.PROC2 ---
Procedure Note - Detailed Date of Procedure 01/30/25 Pre-op Diagnosis Post menopausal bleeding Cervical polyp Post-op Diagnosis Same Procedure Performed Hysteroscopy Dilation and sharp curettage Cervical polypectomy Surgeon Lamont Mcrae MD Anesthesia MAC and Local (1% lidocaine) Findings Polyp arising from the endocervix, prolapsing through the external cervical os. The endometrial cavity was atrophic, but tubal ostia were not clearly visualized. Description of Procedure The patient was taken to the operating room where she was prepared and draped in the usual sterile fashion in the dorsal lithotomy position. The bladder was drained with a red rubber catheter. A sterile speculum was placed into the vagina. The cervical polyp was grasped with a ring forceps, rotated and easily removed. The anterior lip of the cervix was grasped with single-tooth tenaculum. Ten mL of 1% lidocaine was administered in a paracervical block. The cervix was then gently dilated using Hegar dilators until an 8 mm dilator could be passed. Hysteroscopy was performed using sterile saline as a distention medium. Findings are as noted above. Sharp curettage was then performed, and endometrial curettings were collected on a Telfa pad and passed off to be sent to pathology. Hemostasis was excellent. Sponge, lap, needle and instrument counts were correct. The patient was awakened and taken to the recovery room in stable condition. I was present and scrubbed through the entire procedure. Implants None Estimated Blood Loss 5 Drains No Packing No Pathology Yes (Endometrial curettings, cervical polyp) Complications None Condition Stable Disposition PACU [facility] Billing Surgery - Charge Forward: Surgery Billing
[2025-01-30 15:10] VITALS: BP 94/32; PULSE 59; RESP 16; O2SAT 99
[2025-01-30 15:40] VITALS: BP 109/44; PULSE 58; RESP 18; O2SAT 99
[2025-01-30 16:10] VITALS: BP 118/52; PULSE 62; RESP 18
[2025-01-30 16:30] VITALS: BP 110/50; PULSE 58; RESP 18
== END 2025-01-30 16:50 | disposition home or self-care (01) ==
PROVIDERS: PCP Family Medicine; Visit Provider Obstetrics & Gynecology
PROC: 0U5B8ZZ Destruction of Endometrium, Via Natural or Artificial Opening Endoscopic (ICD-10-PCS; CPT 58563; principal; 2025-01-30 15:15)
DX: N84.0 Polyp of corpus uteri (principal); E78.5 Hyperlipidemia, unspecified; E55.9 Vitamin D deficiency, unspecified; E03.9 Hypothyroidism, unspecified; E11.22 Type 2 diabetes mellitus with diabetic chronic kidney disease; I12.9 Hypertensive chronic kidney disease with stage 1 through stage 4 chronic kidney disease, or unspecified chronic kidney disease; N18.32 Chronic kidney disease, stage 3b; M17.0 Bilateral primary osteoarthritis of knee; G47.00 Insomnia, unspecified; J45.909 Unspecified asthma, uncomplicated; M65.4 Radial styloid tenosynovitis [de Quervain]; R30.0 Dysuria; R35.0 Frequency of micturition; G89.29 Other chronic pain; M25.562 Pain in left knee; M25.561 Pain in right knee; E66.01 Morbid (severe) obesity due to excess calories; Z68.42 Body mass index [BMI] 45.0-49.9, adult; Z79.51 Long term (current) use of inhaled steroids; Z79.4 Long term (current) use of insulin; Z98.890 Other specified postprocedural states; Z87.891 Personal history of nicotine dependence; Z87.19 Personal history of other diseases of the digestive system; Z80.42 Family history of malignant neoplasm of prostate; Z80.8 Family history of malignant neoplasm of other organs or systems; Z80.51 Family history of malignant neoplasm of kidney; Z80.1 Family history of malignant neoplasm of trachea, bronchus and lung; Z82.49 Family history of ischemic heart disease and other diseases of the circulatory system
CPT/HCPCS: 58558; 81001; 82948; 88305; A4248; A9270; J0696; J1885; J2003; J2405; J2704; J3010; J7120

== ENCOUNTER 2025-02-01 15:03 | Emergency (ER) | payer MEDICARE, SELFPAY ==
--- NOTE | 2025-02-01 15:51 | ED.GENADULT ---
HPI - General Adult General Chief complaint: Urogenital-Female Stated complaint: vag bleed, bladder infection Time Seen by Provider: 02/01/25 15:35 History of Present Illness HPI narrative: Patient is a 69-year-old female who presents ER with reports of possible bladder infection. She has been on cephalexin for couple days and was having normal urination yesterday but now has suprapubic discomfort and dysuria. Worse with sitting up. No fevers or chills. Recently had a D&C for thickened endometrial stripe. No discharge or bleeding from vagina. Related Data Home Medications ?Medication ?Instructions ?Recorded ?Confirmed ?Last Taken ?Type blood-glucose meter (OneTouch 06/05/21 01/23/25 Unknown History Verio Reflect Meter) lancets 33 gauge (OneTouch Delica 06/05/21 01/23/25 Unknown History Plus Lancet) vitamins A,C,M-czvx-dkewfr 2,148 2 tablet PO BID 03/30/22 01/24/25 Unknown History mcg-113 mg-45 mg-17.4 mg tablet (PreserVision AREDS) cholecalciferol (vitamin D3) 50 50 mcg PO DAILY 05/03/24 01/24/25 Unknown History mcg (2,000 unit) capsule mecobalamin (vitamin B12) 500 mcg 500 mcg PO DAILY 09/26/24 01/24/25 Unknown History chewable tablet acetaminophen 650 mg 650 mg PO Q12H PRN pain 11/08/24 01/24/25 Unknown History tablet,extended release (Arthritis Pain Relief (acetaminophen) ER) amlodipine 5 mg tablet 5 mg PO HS 11/08/24 01/24/25 Unknown History carvedilol 6.25 mg tablet 6.25 mg PO BID 11/08/24 01/24/25 Unknown History furosemide 20 mg tablet 20 mg PO .COMPLEX PRN edema 11/08/24 01/24/25 Unknown History magnesium oxide 400 mg (241.3 mg 250 mg PO DAILY 11/08/24 01/24/25 Unknown History magnesium) tablet Allergies Allergy/AdvReac Type Severity Reaction Status Date / Time hydrocortisone Allergy Mild TEARS Verified 01/24/25 14:59 STOMACH UP poison yemi extract Allergy Unknown Unknown Verified 01/24/25 14:59 povidone Allergy Unknown Unknown Verified 01/24/25 14:59 povidone-iodine Allergy Unknown RASH Verified 01/24/25 14:59 soap Allergy Unknown Rash Verified 01/24/25 14:59 Sulfa (Sulfonamide Allergy Unknown Rash Verified 01/24/25 14:59 Antibiotics) sulfanilamide Allergy Unknown Rash Verified 01/24/25 14:59 talc Allergy Unknown Rash Verified 01/24/25 14:59 fluconazole (From Diflucan) Allergy Rash Verified 01/24/25 14:59 cetirizine (From Zyrtec) AdvReac Severe leg cramps Verified 01/24/25 14:59 avocado AdvReac Intermediate Rash Verified 01/24/25 14:59 empagliflozin (From AdvReac Mild Rash Verified 01/24/25 14:59 Jardiance) lactose AdvReac Mild Unknown Verified 01/24/25 14:59 lisinopril AdvReac Mild Cough Verified 01/24/25 14:59 semaglutide (From Rybelsus) AdvReac Mild Nausea Verified 01/24/25 14:59 Review of Systems Review of Systems: All systems reviewed & are unremarkable except as noted in HPI and below Constitutional: Constitutional: Reports no additional constitutional complaints Cardiovascular: Cardiovascular: Reports no additional cardiovascular complaints Respiratory: Respiratory: Reports no additional respiratory complaints Gastrointestinal: Gastrointestinal: Reports no additional gastrointestinal complaints Genitourinary: Genitourinary: Reports no additional female genitourinary complaints [facility] Past Medical History Medical History Left scapula fracture (~08/2024) Chronic pain of both knees Osteoarthritis Stage 3b chronic kidney disease Shingles (~02/2023) CKD (chronic kidney disease) stage 3, GFR 30-59 ml/min Lung nodule 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 Retinopathy Bilateral primary osteoarthritis of knee Osteoarthritis of right knee Wears glasses BMI greater than 40 Degenerative joint disease of knee Diverticulitis of sigmoid colon (~10/2021) Type 2 diabetes mellitus without complications Hypomagnesemia Insomnia De Quervain's tenosynovitis, bilateral Dyslipidemia Vitamin D deficiency Environmental allergies Pneumonia 06/2020 Hypothyroidism, unspecified Essential hypertension Asthma Surgical History Surgical History History of carpal tunnel release of both wrists [id number] History of thoracentesis 06/2020 - Right loculated pleural effusion History of hand surgery (~1993) b/l - Multiple surgeries 1993, 2003 Family History Family History Father Hypertension Malignant neoplasm of prostate Family history of obesity Family history of cataracts Family history of congestive heart failure DVT (deep venous thrombosis) Mother Family history of hypothyroidism Family history of heart disease in male family member before age 55 Family history of obesity Family history of lung disease Family history of hearing loss Grandparent Family history of thyroid disease Family history of obesity Cerebrovascular accident Family history of arthritis Family history of congestive heart failure Diabetes mellitus Sibling Family history of malignant neoplasm of brain Family history of malignant neoplasm of kidney Family history of heart disease in male family member before age 55 Brain aneurysm Other Family history of cardiovascular disease Family history of lung cancer Family history of malignant neoplasm Neuropathy Social History Social History Smoking packs per day: 0.15 Smoking cigarettes per day: 3.0 Years smoked: 3 Smoking pack-years: 0.45 Smoking status: Former smoker Tobacco type: cigarettes Second hand tobacco smoke exposure: No Smoking end date: 09/23/75 Additional smoking assessment comments: smoked [id number] per [place] Alcohol intake: current Alcohol use details: special occasions Substance use: never Substance use type: does not use Do You Feel Safe in your Home?: Yes Lack of Transportation: No Lack of Food: Never True Current Housing: I Have Housing Concerned About Future Housing: No Difficulty Paying Gas/Electric Bills: No Difficulty Paying for Meds: No Currently Unemployed: No Education: Master's Degree or Higher Difficulty w/ Childcare or Family Care: No Living arrangements: with family Additional living arrangements comments: spouse Occupation/Education: retired 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 HEAD: Normocephalic, atraumatic. ENT: Mucous membranes moist. CHEST: Clear to auscultation. No respiratory distress. HEART: Regular rate and rhythm. Normal peripheral pulses. ABDOMEN: Soft, nontender, nondistended EXTREMITIES: Normal range of motion. +2 edema. NEURO: Alert and oriented x3. PSYCH: Normal mood and affect. Course Course Emergency Course: Bladder scan shows over 500 mL of urine in bladder. Garcia catheter placed and patient's discomfort is relieved. She will be discharged. Vital Signs Vital signs: Vital Signs Temperature 98.1 F 02/01/25 17:05 Pulse Rate 69 02/01/25 17:05 Respiratory Rate 16 02/01/25 17:05 Blood Pressure 177/77 H 02/01/25 17:05 Pulse Oximetry 99 02/01/25 17:05 Temperature 98.1 F 02/01/25 17:05 Pulse Rate 69 02/01/25 17:05 Respiratory Rate 16 02/01/25 17:05 Blood Pressure 177/77 H 02/01/25 17:05 Pulse Oximetry 99 02/01/25 17:05 Medical Decision Making Vital Signs Vital Signs: Vital Signs Temperature 98.1 F 02/01/25 17:05 Pulse Rate 69 02/01/25 17:05 Respiratory Rate 16 02/01/25 17:05 Blood Pressure 177/77 H 02/01/25 17:05 Pulse Oximetry 99 02/01/25 17:05 Temperature 98.1 F 02/01/25 17:05 Pulse Rate 69 02/01/25 17:05 Respiratory Rate 16 02/01/25 17:05 Blood Pressure 177/77 H 02/01/25 17:05 Pulse Oximetry 99 02/01/25 17:05 Lab Data 02/01/25 15:59 02/01/25 15:59 Labs: Lab Results 02/01/25 02/01/25 Range/Units 15:47 15:59 WBC 10.0 (4.5-10.0) K/mm3 RBC 3.90 L (4.2-5.4) M/mm3 Hgb 11.2 L (12.0-15.0) g/dL Hct 36.1 L (37.0-47.0) % MCV 92.6 (80-100) fl MCH 28.7 (26-34) pg MCHC 31.0 L (32-36) g/dl RDW 13.4 (11.5-14.5) % Plt Count 295 (150-375) k/mm3 MPV 11.9 H (7.4-10.4) fl Immature Gran % (Auto) 0.4 (0-0.5) % Neut % (Auto) 69.4 (45.5-73.1) % Lymph % (Auto) 21.3 (18.3-44.2) % Hendry % (Auto) 6.0 (2.6-8.5) % Eos % (Auto) 2.3 (0-4.4) % Baso % (Auto) 0.6 (0.2-1.2) % Lymph # (Auto) 2.13 (0.9-3.2) K/mm3 Hendry # (Auto) 0.6 (0.1-0.6) K/mm3 Eos # (Auto) 0.2 (0-0.3) K/mm3 Baso # (Auto) 0.1 (0.0-0.1) K/mm3 Abs Immat Gran (auto) 0.04 H (0.00-0.031) K/mm3 Absolute Neuts (auto) 6.9 H (1.3-6.7) K/mm3 Absolute Nucleated RBC 0.000 (0.0-0.012) K/mm3 Nucleated RBC % 0.0 (0.0-0.2) % Sodium 135 L (137-145) mmol/L Potassium 4.6 (3.4-5.0) mmol/L Chloride 103 (98-107) mmol/L Carbon Dioxide 24 (22-30) mmol/L Anion Gap 8 (4-12) mmol/L BUN 20 H (7-17) mg/dL Creatinine 1.32 H (0.7-1.0) mg/dL Estim Creat Clear Calc Not Reportable Estimated GFR 40 L (59 - ) Glucose 173 H (65-110) mg/dL Calcium 10.0 (8.4-10.2) mg/dL Total Bilirubin 0.3 (0.2-1.3) mg/dL AST 27 (14-36) U/L ALT 17 (6-35) U/L Alkaline Phosphatase 85 (38-126) U/L Total Protein 7.4 (6.3-8.2) g/dL Albumin 4.1 (3.5-5.1) g/dL Urine Color Yellow (Yellow) Urine Appearance Clear (Clear) Urine pH 7.5 (5.0-9.0) Ur Specific Larimer 1.005 (1.001-1.035) Urine Protein Negative (Negative) mg/dL Urine Glucose (UA) Negative (Negative) mg/dL Urine Ketones Negative (Negative) mg/dL Ur Blood (Man) 1+ H (Negative) Urine Nitrate Negative (Negative) Urine Bilirubin Negative (Negative) Urine Urobilinogen 0.2 (<2.0) mg/dL Leukocyte Esterase Rfl Trace H (Negative) SAMANTHA/UL Urine RBC 0-2 (0-2) /hpf Urine WBC 0-5 (0-3) /hpf Ur Squamous Epith Cells None seen (Few) /hpf Urine Bacteria None seen /hpf Urine Casts 0-2 Discharge Plan Discharge Clinical Impression: Acute urinary retention Patient Disposition: Home Condition: Stable Instructions: Garcia Catheter Placement and Care (ED), Acute Urinary Retention in Women (ED) Additional Instructions: You will need your Garcia catheter taken out in the next week. You should follow-up with urology or with your primary care doctor. Return the ER if he develop fever over 100.4? F, you cannot keep down food or water, or you have additional concerns. Patient Language: Trinidadian Prescriptions: No Action cholecalciferol (vitamin D3) 50 mcg (2,000 unit) capsule 50 mcg PO DAILY acetaminophen [Arthritis Pain Relief (acetam)] 650 mg tablet extended release 650 mg PO Q12H PRN (Reason: pain) (DME) pen needle, diabetic [BD Ultra-Fine Short Pen Needle] 31 gauge x 5/16 needle See Rx Instructions .ROUTE .MEDSUPPLY Qty: 400 1RF Rx Instructions: Use with insulin injections 4 times daily mecobalamin (vitamin B12) 500 mcg tablet,chewable 500 mcg PO DAILY Rx Instructions: takes 4 days per week magnesium oxide 400 mg (241.3 mg magnesium) tablet 250 mg PO DAILY (DME) blood-glucose meter [OneTouch Verio Reflect Meter] Misc See Rx Instructions .Route Rx Instructions: Take BS QID (DME) lancets [OneTouch Delica Plus Lancet] 33 gauge misc See Rx Instructions .Route Rx Instructions: As directed PreserVision AREDS 2,148 mcg-113 mg-45 mg-17.4mg tablet 2 tablet PO BID Rx Instructions: administer with AM and PM meals amlodipine 5 mg tablet 5 mg PO HS carvedilol 6.25 mg tablet 6.25 mg PO BID Kerendia 10 mg tablet 10 mg PO DAILY Qty: 90 3RF furosemide 20 mg tablet 20 mg PO .COMPLEX PRN (Reason: edema) Rx Instructions: 20 mg orally PRN; for swollen legs cephalexin 500 mg capsule 500 mg PO Q12H 7 Days Qty: 14 0RF albuterol sulfate [Ventolin HFA] 90 mcg/actuation HFA aerosol inhaler 1 puff INHALATION Q4H PRN (Reason: Shortness Of Breath) Qty: 8.5 5RF (DME) OneTouch Verio test strips Strip See Rx Instructions .ROUTE .COMPLEX Qty: 100 3RF Dose Instruction: USE TO CHECK BLOOD SUGARS TWICE DAILY Rx Instructions: USE TO CHECK BLOOD SUGARS TWICE DAILY losartan 100 mg tablet 100 mg PO DAILY Qty: 90 1RF simvastatin 20 mg tablet 20 mg PO QHS Qty: 90 1RF Rx Instructions: TAKE 1 TABLET BY MOUTH AT BEDTIME levothyroxine 100 mcg tablet 100 mcg PO DAILY 90 Days Qty: 90 1RF insulin degludec [Tresiba FlexTouch U-100] 100 unit/mL (3 mL) insulin pen 20 unit subcut QHS Qty: 18 1RF insulin aspart U-100 [Novolog FlexPen U-100 Insulin] 100 unit/mL (3 mL) insulin pen 4 unit subcut TIDWMEAL MDD 33 Qty: 30 1RF Rx Instructions: 4 units before meals if skipping meal-do not take anything blood sugar less than 100--> does not take anything blood sugar [id number] 2 units blood sugar 140-160- 4 units blood sugar 161-180- 6 units blood sugar >181- 7 units Follow-up/Referrals: Reed Banda MD [Physician] - 1 Week Anjel Knapp MD [Primary Care Provider] - 1 Week
--- OUTSIDE RECORDS SUMMARY | 2025-02-01 15:52 | XMS_ITS | Clinical Summary ---
Author Organization [facility] true [facility] Address [address] [place] [address] Care Team Providers Care Lead Cashier Name Role Phone Arin Knapp MD Primary [...] mouth daily with supper. Active Vit C-Vit P-Wreaxk-GxCe- Lutein (PRESERVISION) 226-90-0.8-5 mg Capsule Take 1 Capsule by mouth 2 times daily. Active Blood-Glucose Meter,Continuo us (Dexcom G6 Roll Out Manager) by [facility].(Non-Drug; Combo Route) route. Active insulin aspart U-100 [...] on file Legal Sex Female 1:05 PM GEOTECHNICAL INTERN Gender Identity Not on file Sexual Orientation [...] 157.5 cm (5' 2) 06/14/2022 1:34 PM GEOTECHNICAL INTERN Body Mass Index 47.88 06/14/2022 1:34 PM GEOTECHNICAL INTERN Plan of Treatment Upcoming Encounters Date Type Department Care Team (Late st Contact Info) Description 10/16/2025 10:00 AM CDT Office Visit [facility] Oncology and Hematology [facility] [address] [place] [address] [facility] [address] [place] [address] Mau Lee MD [address] [place] [address] Health Maintenance Due Date Last [...] INFLUENZA VACCINE (#1) 2025 05/02/2017, 2015 Insurance [facility] MCR Care Teams Lead Cashier Relationship Specialty Start Date End Date Arin Knapp MD [address] [place] [id number] PCP - General Family Practice 06/14/22
--- OUTSIDE RECORDS SUMMARY | 2025-02-01 15:52 | XMS_ITS | Clinical Summary ---
Author Organization [facility] Address [address] [place] [phone] Care Team Providers Care Poultry Husbandry Teacher Name Role Phone Arin Knapp MD Primary [...] (two) times a day 08/19/19 21 Active cnurbnplx-SB-KH- acetaminoph-GG 5-325-200 mg (day-night) tablets, sequential Take by mouth Activ e LEVEMIR 100 unit/mL (3 mL) pen for injection 11/02/19 21 Active blood-glucose meter muscogee Active blood glucose diagnostic strip One touch Act pritesh UNABLE TO FIND Touch Delica Plus needles Active losartan (COZAAR) 50 mg tablet 07/22/20 21 Active Euflexxa 10 mg/mL(mw 2.4 -3.6 million) syringe 01/29/20 22 Active cyanocobalamin (Vitamin B-12) 1,000 mcg tabletIndication s:Prevention of Vitamin B12 Deficiency Take 1 tablet (1,000 mcg total) by mouth daily Active blood-glucose meter,continuous (Dexcom G6 Motion Picture Cameraman) misc Activ e vit J-Z-giswfe-zinc- lutein 226-90-0.8-5 mg capsule Take 1 capsule [...] - 01/01/2025 11:59 PM CDT Hospital Encounter 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08 L/s 01/01/2025 1:20 PM CDT [facility] DLCOc SB 13.59 ml/(min*mm Hg) 01/01/2025 1:20 PM CDT [facility] DLCO/VA PRE 4.48 ml/(min*mm Hg*L) 01/01/2025 1:20 PM CDT [facility] VA 3.04 L 01/01/2025 1:20 PM CDT [facility] TLC PRE 4.83 L 01/01/2025 1:20 PM CDT [facility] VC PRE 2.54 L 01/01/2025 1:20 PM CDT [facility] IC PRE 1.82 L 01/01/2025 1:20 PM CDT [facility] FRC PL PRE 2.97 L 01/01/2025 1:20 PM CDT [facility] ERV PRE 0.68 L 01/01/2025 1:20 PM CDT [facility] RV PRE 2.29 L 01/01/2025 1:20 PM CDT [facility] RAW PRE 3.18 cmH2O*s/L 01/01/2025 1:20 PM CDT [facility] VTG 3.11 L 01/01/2025 1:20 PM CDT [facility] Anatomical Region Laterality Modality PFT 01/01/2025 12:2 [...] from Last 3 Months Insurance AETNA MEDICARE [facility] [employer] Address: [place] [address] AETNA [facility] ADV REF [facility] MEDICARE Care Teams Poultry Husbandry Teacher Relationship Specialty Start Date End Date Arin Knapp MD PCP - General 07/18/20
--- OUTSIDE RECORDS SUMMARY | 2025-02-01 15:52 | XMS_ITS | Clinical Summary ---
Author Organization [facility] Address [address] [place] [address] Care Team Providers Care Cogeneration Technician Name Role Phone Unavailable Primary Care Provider [...]
--- OUTSIDE RECORDS SUMMARY | 2025-02-01 15:52 | XMS_ITS | Referral Summary ---
Author Organization [facility] Address [address] [place] [address] Care Team Providers Care Boiling House Hand Name Role Phone Arin Knapp MD Primary Care Provider Encounters Date Type Department Care Team Description 01/01/2025 12:15 PM CDT - 01/01/2025 11:59 PM CDT Hospital Encounter [facility] Respiratory [address], [place] [id number] Mild intermittent asthma without complication; Allergic rhinitis, [...] (two) times a day 08/19/19 21 Active lffzsftjk-BC-EQ- acetaminoph-GG 5-325-200 mg (day-night) tablets, sequential Take [...] mouth daily Active blood-glucose meter,continuous (Dexcom G6 [employer]) misc Activ e vit Q-J-fulqvi-zinc- lutein 226-90-0.8-5 mg capsule Take 1 capsule [...] on file Legal Sex Female 8:23 PM 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 Gender Identity Female 10/27/2020 8:24 AM CDT [...] eosinophilia Multiple pulmonary nodules BMI 50.0-59.9, adult ([facility]) from Last 3 Months Results * Pulmonary Function Test - (01/01/2025 1:28 PM CDT) [facility] FVC PRE 2.54 L 01/01/2025 1:20 PM CDT [facility] FEV1 PRE 1.89 L 01/01/2025 1:20 PM CDT [facility] PQC3UYY-SSN 74.57 % 01/01/2025 1:20 PM CDT [facility] QUN67-99% PRE 1.41 L/s 01/01/2025 1:20 PM CDT [facility] PEF PRE 7.08 L/s 01/01/2025 1:20 PM CDT [facility] DLCOc SB 13.59 ml/(min*mm Hg) 01/01/2025 1:20 PM CDT [facility] DLCO/VA PRE 4.48 ml/(min*mm Hg*L) 01/01/2025 1:20 PM CDT [facility] VA 3.04 L 01/01/2025 1:20 PM CDT [facility] TLC PRE 4.83 L 01/01/2025 1:20 PM CDT [facility] VC PRE 2.54 L 01/01/2025 1:20 PM CDT [facility] IC PRE 1.82 L 01/01/2025 1:20 PM CDT [facility] FRC PL PRE 2.97 L 01/01/2025 1:20 PM CDT [facility] ERV PRE 0.68 L 01/01/2025 1:20 PM CDT [facility] RV PRE 2.29 L 01/01/2025 1:20 PM CDT [facility] RAW PRE 3.18 cmH2O*s/L 01/01/2025 1:20 PM CDT [facility] VTG 3.11 L 01/01/2025 1:20 PM CDT [facility] Anatomical Region Laterality Modality PFT 01/01/2025 [...] from Last 3 Months Insurance AET[employer] MEDICARE [facility] AETNA MCR ADV REF [employer] [facility] Care Teams Boiling House Hand Relationship Specialty Start Date End Date Arin Knapp MD PCP - General 07/18/20
[2025-02-01 16:07] LABS: Add Urine Microscopic? YES; Appearance Urine Clear (Clear); Glucose Urine UA Negative (Negative); Leukocyte Esterase Ur Trace LEU/UL (Negative); Nitrate Urine Negative (Negative); Non Pathogenic Casts 0-2; Specific Grav Ur 1.005 (1.001-1.035)
[2025-02-01 16:19] LABS: Alanine Aminotransferase 17 U/L (6-35); Albumin Level 4.1 g/dL (3.5-5.1); Alkaline Phosphatase 85 U/L (38-126); Anion Gap 8 mmol/L (4-12); Aspartate Amino Transferase 27 U/L (14-36); Bilirubin,Total 0.3 mg/dL (0.2-1.3); Blood Urea Nitrogen 20 mg/dL (7-17); Calcium 10.0 mg/dL (8.4-10.2); Carbon Dioxide 24 mmol/L (22-30); Chloride 103 mmol/L (98-107); Estimated Glomerular Filt Rate 40; Glucose 173 mg/dL (65-110); Hematocrit 36.1 % (37.0-47.0); Hemoglobin 11.2 g/dL (12.0-15.0); Immature Granulocyte Percent A 0.4 % (0-0.5); Lymphocytes Absolute Auto 2.13 K/mm3 (0.9-3.2); Mean Corpuscular HGB Conc 31.0 g/dl (32-36); Mean Corpuscular Hemoglobin 28.7 pg (26-34); Mean Corpuscular Volume 92.6 fl (80-100); Nucleated Red Blood Cells Absolute Auto 0.000 K/mm3 (0.0-0.012); Nucleated Red Blood Cells Perc 0.0 % (0.0-0.2); Platelet Count Result 295 k/mm3 (150-375); Potassium 4.6 mmol/L (3.4-5.0); Red Blood Count 3.90 M/mm3 (4.2-5.4); Sodium 135 mmol/L (137-145); Total Protein 7.4 g/dL (6.3-8.2); White Blood Count 10.0 K/mm3 (4.5-10.0)
[2025-02-01 17:05] VITALS: BP 177/77; PULSE 69; RESP 16; TEMP 36.7; O2SAT 99
== END 2025-02-01 20:16 | disposition home or self-care (01) ==
PROVIDERS: Emergency Provider Emergency Medicine; PCP Family Medicine
DX: R33.9 Retention of urine, unspecified (principal); E11.22 Type 2 diabetes mellitus with diabetic chronic kidney disease; I12.9 Hypertensive chronic kidney disease with stage 1 through stage 4 chronic kidney disease, or unspecified chronic kidney disease; N18.32 Chronic kidney disease, stage 3b; E78.5 Hyperlipidemia, unspecified; E55.9 Vitamin D deficiency, unspecified; E03.9 Hypothyroidism, unspecified; J45.909 Unspecified asthma, uncomplicated; H35.3191 Nonexudative age-related macular degeneration, unspecified eye, early dry stage; M17.11 Unilateral primary osteoarthritis, right knee; Z87.01 Personal history of pneumonia (recurrent); Z87.891 Personal history of nicotine dependence; Z79.899 Other long term (current) drug therapy; Z79.4 Long term (current) use of insulin
CPT/HCPCS: 36415; 51702; 80053; 81001; 85025; 99283

== ENCOUNTER 2025-03-14 00:58 | Day surgery (SDC) | payer MEDICARE, SELFPAY ==
[2025-03-05 10:59] VITALS: BMI 45.9
[2025-03-14 11:30] VITALS: BP 128/65; PULSE 65; RESP 20; TEMP 36.4; O2SAT 100
--- NOTE | 2025-03-14 11:31 | SUR.PREOP ---
Blood sugar from her personal monitor is 166.
[2025-03-14] MEDS: LACTATED RINGERS 1,000 ML 150 ML IV CONT (11:38)
--- NOTE | 2025-03-14 11:49 | WPDANESEPPF ---
Anes - Initial Pre Proc Eval Procedure: Operation Date: 03/14/25 12:30 Proposed Procedures p Esophagogastroduodenoscopy - Burt Weiner MD Date/Time: 03/14/25 11:49 Surgeon: Burt Weiner MD Pre Op Diagnosis: Dysphagia, unspecified Patient Data Age: 69 Gender: F Height: 1.57 m Weight: 114.4 kg Last Vital Signs Temp 36.4 C 03/14/25 11:30 Pulse 65 03/14/25 11:30 Resp 20 03/14/25 11:30 BP 128/65 03/14/25 11:30 Pulse Ox 100 03/14/25 11:30 O2 Del Method Room Air 03/14/25 11:30 Allergies Allergy/AdvReac Type Severity Reaction Status Date / Time hydrocortisone Allergy Mild TEARS Verified 03/14/25 11:28 STOMACH UP poison yemi extract Allergy Unknown Unknown Verified 03/14/25 11:28 povidone Allergy Unknown Unknown Verified 03/14/25 11:28 povidone-iodine Allergy Unknown RASH Verified 03/14/25 11:28 soap Allergy Unknown Rash Verified 03/14/25 11:28 Sulfa (Sulfonamide Allergy Unknown Rash Verified 03/14/25 11:28 Antibiotics) sulfanilamide Allergy Unknown Rash Verified 03/14/25 11:28 talc Allergy Unknown Rash Verified 03/14/25 11:28 fluconazole (From Diflucan) Allergy Rash Verified 03/14/25 11:28 cetirizine (From Zyrtec) AdvReac Severe leg cramps Verified 03/14/25 11:28 avocado AdvReac Intermediate Rash Verified 03/14/25 11:28 empagliflozin (From AdvReac Mild Rash Verified 03/14/25 11:28 Jardiance) lactose AdvReac Mild Unknown Verified 03/14/25 11:28 lisinopril AdvReac Mild Cough Verified 03/14/25 11:28 semaglutide (From Rybelsus) AdvReac Mild Nausea Verified 03/14/25 11:28 Home Medications ?Medication ?Instructions ?Recorded ?Confirmed ?Type blood-glucose meter (OneTouch 06/05/21 01/23/25 History Verio Reflect Meter) lancets 33 gauge (OneTouch Delica 06/05/21 01/23/25 History Plus Lancet) vitamins A,C,U-zcku-gnjrbp 2,148 1 tablet PO BID 03/30/22 03/14/25 History mcg-113 mg-45 mg-17.4 mg tablet (PreserVision AREDS) pen needle, diabetic 31 gauge x #400 ea 10/05/22 01/23/25 Rx 5/16 (BD Ultra-Fine Short Pen Needle) albuterol sulfate 90 mcg/actuation 1 puff inhalation Q4H PRN 09/27/23 03/14/25 Rx aerosol inhaler (Ventolin HFA) Shortness Of Breath #8.5 grams cholecalciferol (vitamin D3) 50 50 mcg PO DAILY 05/03/24 03/14/25 History mcg (2,000 unit) capsule mecobalamin (vitamin B12) 500 mcg 500 mcg PO DAILY 09/26/24 03/14/25 History chewable tablet blood sugar diagnostic (OneTouch #100 strips 10/22/24 01/23/25 Rx Verio test strips) acetaminophen 650 mg 650 mg PO Q12H PRN pain 11/08/24 03/05/25 History tablet,extended release (Arthritis Pain Relief (acetaminophen) ER) amlodipine 5 mg tablet 5 mg PO HS 11/08/24 03/14/25 History carvedilol 6.25 mg tablet 6.25 mg PO BID 11/08/24 03/14/25 History furosemide 20 mg tablet 10 mg PO PRN PRN edema 11/08/24 03/14/25 History magnesium oxide 400 mg (241.3 mg 400 mg PO BID 11/08/24 03/14/25 History magnesium) tablet losartan 100 mg tablet 100 mg PO DAILY #90 tabs 11/26/24 03/14/25 Rx finerenone 10 mg tablet (Kerendia) 10 mg PO DAILY #90 tabs 12/19/24 03/14/25 Rx levothyroxine 100 mcg tablet 100 mcg PO DAILY 90 days #90 tabs 12/28/24 03/14/25 Rx simvastatin 20 mg tablet 20 mg PO QHS #90 tabs 12/28/24 03/14/25 Rx insulin degludec 100 unit/mL (3 20 unit (0.2 mL) subcut QHS #18 mL 01/14/25 03/14/25 Rx mL) subcutaneous pen (Tresiba FlexTouch U-100 insulin) insulin aspart U-100 100 unit/mL 4 unit (0.04 mL) subcut TIDWMEAL 01/15/25 03/14/25 Rx (3 mL) subcutaneous pen (Novolog #30 mL FlexPen U-100 Insulin aspart) fluticasone propionate 50 1 inh inhalation Q12H 03/05/25 03/14/25 History mcg/actuation blister powder for inhalation Patient hx anesthesia problems: none Family hx anesthesia problems: none Results Review: All pre-operative results and documents have been reviewed as part of the pre-operative evaluation. 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 Retinopathy Bilateral primary osteoarthritis of knee Osteoarthritis of right knee Wears glasses BMI greater than 40 Degenerative joint disease of knee Diverticulitis of sigmoid colon (~10/2021) Type 2 diabetes mellitus without complications Hypomagnesemia Insomnia De Quervain's tenosynovitis, bilateral Dyslipidemia Vitamin D deficiency Environmental allergies Pneumonia 06/2020 Hypothyroidism, unspecified Essential hypertension Asthma Surgical History Surgical History H/O cervical polypectomy History of dilatation and curettage History of hysteroscopy History of carpal tunnel release of both wrists [id number] History of thoracentesis 06/2020 - Right loculated pleural effusion History of hand surgery (~1993) b/l - Multiple surgeries 1993, 2003 Family History Family History Father Hypertension Malignant neoplasm of prostate Family history of obesity Family history of cataracts Family history of congestive heart failure DVT (deep venous thrombosis) Mother Family history of hypothyroidism Family history of heart disease in male family member before age 55 Family history of obesity Family history of lung disease Family history of hearing loss Grandparent Family history of thyroid disease Family history of obesity Cerebrovascular accident Family history of arthritis Family history of congestive heart failure Diabetes mellitus Sibling Family history of malignant neoplasm of brain Family history of malignant neoplasm of kidney Family history of heart disease in male family member before age 55 Brain aneurysm Other Family history of cardiovascular disease Family history of lung cancer Family history of malignant neoplasm Neuropathy Social History Social History Smoking packs per day: 0.15 Smoking cigarettes per day: 3.0 Years smoked: 3 Smoking pack-years: 0.45 Smoking status: Former smoker Tobacco type: cigarettes Second hand tobacco smoke exposure: No Smoking end date: 09/23/75 Additional smoking assessment comments: smoked [id number] per [place]ip[facility] Alcohol intake: current Alcohol use details: special occasions Substance use: never Substance use type: does not use Do You Feel Safe in your Home?: Yes Lack of Transportation: No Lack of Food: Never True Current Housing: I Have Housing Concerned About Future Housing: No Difficulty Paying Gas/Electric Bills: No Difficulty Paying for Meds: No Currently Unemployed: No Education: Master's Degree or Higher Difficulty w/ Childcare or Family Care: No Living arrangements: with family Additional living arrangements comments: spouse Occupation/Education: retired Additional occupation/education comments: [employer] Gender identity (if verbalized by the patient): Female Sexual Orientation (if Verbalized by the Patient): Straight or Heterosexual Spiritual care concerns: No Anes - Eval Final PreProcedure Day of Procedure 03/14/25 11:49 Patient weight: morbidly obese Heart: regular rate and rhythm Lungs: clear to auscultation Airway: Mallampati scale class II Neurological: alert and oriented Last oral intake: >/= 8 hours ASA classification: III Emergent: no Anesthetic plan: proceed Anesthesia type and monitoring: general GIVS and standard monitoring Results Review: All pre-operative results and documents have been reviewed as part of the pre-operative evaluation. Informed Consent: The patient's anesthetic plan and its attendant risks and benefits were discussed with the patient/family/POA. Questions were solicited and answers provided to the satisfaction of the patient/family/POA.
--- NOTE | 2025-03-14 11:58 | PM.HPGS ---
History of Present Illness History of Present Illness Consent: Risks, benefits, and alternatives have been discussed and questions answered. Patient agrees to proceed with procedure. 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 Retinopathy Bilateral primary osteoarthritis of knee Osteoarthritis of right knee Wears glasses BMI greater than 40 Degenerative joint disease of knee Diverticulitis of sigmoid colon (~10/2021) Type 2 diabetes mellitus without complications Hypomagnesemia Insomnia De Quervain's tenosynovitis, bilateral Dyslipidemia Vitamin D deficiency Environmental allergies Pneumonia 06/2020 Hypothyroidism, unspecified Essential hypertension Asthma Surgical History Surgical History H/O cervical polypectomy History of dilatation and curettage History of hysteroscopy History of carpal tunnel release of both wrists [id number] History of thoracentesis 06/2020 - Right loculated pleural effusion History of hand surgery (~1993) b/l - Multiple surgeries 1993, 2003 Family History Family History Father Hypertension Malignant neoplasm of prostate Family history of obesity Family history of cataracts Family history of congestive heart failure DVT (deep venous thrombosis) Mother Family history of hypothyroidism Family history of heart disease in male family member before age 55 Family history of obesity Family history of lung disease Family history of hearing loss Grandparent Family history of thyroid disease Family history of obesity Cerebrovascular accident Family history of arthritis Family history of congestive heart failure Diabetes mellitus Sibling Family history of malignant neoplasm of brain Family history of malignant neoplasm of kidney Family history of heart disease in male family member before age 55 Brain aneurysm Other Family history of cardiovascular disease Family history of lung cancer Family history of malignant neoplasm Neuropathy Social History Social History Smoking packs per day: 0.15 Smoking cigarettes per day: 3.0 Years smoked: 3 Smoking pack-years: 0.45 Smoking status: Former smoker Tobacco type: cigarettes Second hand tobacco smoke exposure: No Smoking end date: 09/23/75 Additional smoking assessment comments: smoked [id number] per [place] Alcohol intake: current Alcohol use details: special occasions Substance use: never Substance use type: does not use Do You Feel Safe in your Home?: Yes Lack of Transportation: No Lack of Food: Never True Current Housing: I Have Housing Concerned About Future Housing: No Difficulty Paying Gas/Electric Bills: No Difficulty Paying for Meds: No Currently Unemployed: No Education: Master's Degree or Higher Difficulty w/ Childcare or Family Care: No Living arrangements: with family Additional living arrangements comments: spouse Occupation/Education: retired Additional occupation/education comments: [employer] Gender identity (if verbalized by the patient): Female Sexual Orientation (if Verbalized by the Patient): Straight or Heterosexual Spiritual care concerns: No Meds Home Medications and Allergies Home Medications ?Medication ?Instructions ?Recorded ?Confirmed ?Type blood-glucose meter (OneTouch 06/05/21 01/23/25 History Verio Reflect Meter) lancets 33 gauge (OneTouch Delica 06/05/21 01/23/25 History Plus Lancet) vitamins A,C,K-cfpy-puedbz 2,148 1 tablet PO BID 03/30/22 03/14/25 History mcg-113 mg-45 mg-17.4 mg tablet (PreserVision AREDS) pen needle, diabetic 31 gauge x #400 ea 10/05/22 01/23/25 Rx 5/16 (BD Ultra-Fine Short Pen Needle) albuterol sulfate 90 mcg/actuation 1 puff inhalation Q4H PRN 09/27/23 03/14/25 Rx aerosol inhaler (Ventolin HFA) Shortness Of Breath #8.5 grams cholecalciferol (vitamin D3) 50 50 mcg PO DAILY 05/03/24 03/14/25 History mcg (2,000 unit) capsule mecobalamin (vitamin B12) 500 mcg 500 mcg PO DAILY 09/26/24 03/14/25 History chewable tablet blood sugar diagnostic (OneTouch #100 strips 10/22/24 01/23/25 Rx Verio test strips) acetaminophen 650 mg 650 mg PO Q12H PRN pain 11/08/24 03/05/25 History tablet,extended release (Arthritis Pain Relief (acetaminophen) ER) amlodipine 5 mg tablet 5 mg PO HS 11/08/24 03/14/25 History carvedilol 6.25 mg tablet 6.25 mg PO BID 11/08/24 03/14/25 History furosemide 20 mg tablet 10 mg PO PRN PRN edema 11/08/24 03/14/25 History magnesium oxide 400 mg (241.3 mg 400 mg PO BID 11/08/24 03/14/25 History magnesium) tablet losartan 100 mg tablet 100 mg PO DAILY #90 tabs 11/26/24 03/14/25 Rx finerenone 10 mg tablet (Kerendia) 10 mg PO DAILY #90 tabs 12/19/24 03/14/25 Rx levothyroxine 100 mcg tablet 100 mcg PO DAILY 90 days #90 tabs 12/28/24 03/14/25 Rx simvastatin 20 mg tablet 20 mg PO QHS #90 tabs 12/28/24 03/14/25 Rx insulin degludec 100 unit/mL (3 20 unit (0.2 mL) subcut QHS #18 mL 01/14/25 03/14/25 Rx mL) subcutaneous pen (Tresiba FlexTouch U-100 insulin) insulin aspart U-100 100 unit/mL 4 unit (0.04 mL) subcut TIDWMEAL 01/15/25 03/14/25 Rx (3 mL) subcutaneous pen (Novolog #30 mL FlexPen U-100 Insulin aspart) fluticasone propionate 50 1 inh inhalation Q12H 03/05/25 03/14/25 History mcg/actuation blister powder for inhalation Allergies Allergy/AdvReac Type Severity Reaction Status Date / Time hydrocortisone Allergy Mild TEARS Verified 03/14/25 11:28 STOMACH UP poison yemi extract Allergy Unknown Unknown Verified 03/14/25 11:28 povidone Allergy Unknown Unknown Verified 03/14/25 11:28 povidone-iodine Allergy Unknown RASH Verified 03/14/25 11:28 soap Allergy Unknown Rash Verified 03/14/25 11:28 Sulfa (Sulfonamide Allergy Unknown Rash Verified 03/14/25 11:28 Antibiotics) sulfanilamide Allergy Unknown Rash Verified 03/14/25 11:28 talc Allergy Unknown Rash Verified 03/14/25 11:28 fluconazole (From Diflucan) Allergy Rash Verified 03/14/25 11:28 cetirizine (From Zyrtec) AdvReac Severe leg cramps Verified 03/14/25 11:28 avocado AdvReac Intermediate Rash Verified 03/14/25 11:28 empagliflozin (From AdvReac Mild Rash Verified 03/14/25 11:28 Jardiance) lactose AdvReac Mild Unknown Verified 03/14/25 11:28 lisinopril AdvReac Mild Cough Verified 03/14/25 11:28 semaglutide (From Rybelsus) AdvReac Mild Nausea Verified 03/14/25 11:28 Vital Signs Vital Signs - 24 hr 03/14/25 11:30 Temperature 97.6 F Pulse Rate 65 Respiratory Rate 20 Blood Pressure 128/65 Pulse Oximetry 100 Oxygen Delivery Room Air Exam Const: General: comfortable and no acute distress HENMT: Face/Nose/Sinus: Normal nares present Eyes: General: appearance normal, both eyes and all related structures Neck: Neck: no JVD Resp: Auscultation: clear to auscultation bilaterally Cardio: Rate: regular rate Rhythm: regular rhythm GI: Inspection: non-distended GI Palp: Yes Soft to palpation Skin: General skin exam: normal color Neuro: Speech: normal speech Extrem: General: normal to inspection Psych: Mental Status: mental status grossly normal Assessment and Plan Assessment and plan (1) Dysphagia: Qualifiers: Dysphagia type: unspecified Qualified Code(s): R13.10 - Dysphagia, unspecified Code(s): R13.10 - Dysphagia, unspecified Status: Acute Assessment and Plan: egd
--- NOTE | 2025-03-14 12:13 | S_PTH ---
PATIENT: Mariposa Jimenez LOC: [facility]#:[id number] AGE/SX: 69/F ROOM: RE03/14/[address]: Burt Weiner MD : 1955 BED: DIS: 03/14/2025 SPEC #: [id number] RECD: 03/14/25 13:00 STATUS: RENATO ESCALANTE #: [id number] ISMAEL: 03/14/25 12:[address]: Burt Weiner DEPT: [facility] Surgical RECD BY: Ally Huntley ENTERED: 03/14/25 13:01 SP TYPE: Surgical OTHR DR: Arin Knapp MD Tissues: A - Gastric Biopsy B - Esophageal Biopsy Procedures: Hematoxylin and Eosin Stain Gross and Microscopic Level 4
[2025-03-14 12:18] VITALS: BP 106/42; PULSE 59; RESP 19; O2SAT 100
[2025-03-14 12:28] VITALS: BP 121/58; PULSE 60; RESP 17; O2SAT 100
[2025-03-14 12:38] VITALS: BP 113/59; PULSE 60; RESP 17; O2SAT 99
== END 2025-03-14 12:49 | disposition home or self-care (01) ==
PROVIDERS: PCP Family Medicine; Referring Provider Nurse Practitioner Family; Visit Provider Internal Medicine Gastroenterology
PROC: 0DJ08ZZ Inspection of Upper Intestinal Tract, Via Natural or Artificial Opening Endoscopic (ICD-10-PCS; CPT 43239; principal; 2025-03-14 12:30)
DX: K22.2 Esophageal obstruction (principal); E78.5 Hyperlipidemia, unspecified; E55.9 Vitamin D deficiency, unspecified; E03.9 Hypothyroidism, unspecified; M17.0 Bilateral primary osteoarthritis of knee; E11.22 Type 2 diabetes mellitus with diabetic chronic kidney disease; I12.9 Hypertensive chronic kidney disease with stage 1 through stage 4 chronic kidney disease, or unspecified chronic kidney disease; N18.32 Chronic kidney disease, stage 3b; G47.00 Insomnia, unspecified; J45.909 Unspecified asthma, uncomplicated; G89.29 Other chronic pain; M25.562 Pain in left knee; M25.561 Pain in right knee; E66.01 Morbid (severe) obesity due to excess calories; Z68.42 Body mass index [BMI] 45.0-49.9, adult; Z79.51 Long term (current) use of inhaled steroids; Z79.4 Long term (current) use of insulin; Z98.890 Other specified postprocedural states; Z87.891 Personal history of nicotine dependence; Z87.19 Personal history of other diseases of the digestive system; Z87.09 Personal history of other diseases of the respiratory system; Z80.42 Family history of malignant neoplasm of prostate; Z80.8 Family history of malignant neoplasm of other organs or systems; Z80.51 Family history of malignant neoplasm of kidney; Z80.1 Family history of malignant neoplasm of trachea, bronchus and lung; Z82.49 Family history of ischemic heart disease and other diseases of the circulatory system
CPT/HCPCS: 43239; 43249; 88305; C1726; J2003; J2704; J7120

== ENCOUNTER 2025-04-01 11:26 | Outpatient (CLI) | payer MEDICARE, SELFPAY ==
--- OUTSIDE RECORDS SUMMARY | 2025-04-01 11:48 | XMS_ITS | Clinical Summary ---
Author Organization [facility] Address [address] [place] [id number] Care Team Providers Care Roving Machine Operator Name Role Phone Unavailable Primary Care Provider [...] COVID-19 Vaccine ( - 2023-2 5 season) 2025 RSV Immunization or 60+ Years (1 - [...]
--- OUTSIDE RECORDS SUMMARY | 2025-04-01 11:48 | XMS_ITS | Clinical Summary ---
Author Organization [facility] true [facility] Address [address] [place] [address] Care Team Providers Care Arts Manager Name Role Phone Arin Knapp MD [...] mouth daily with supper. Active Vit C-Vit C-Qbotra-VbUf- Lutein (PRESERVISION) 226-90-0.8-5 mg Capsule Take 1 Capsule by mouth 2 times daily. Active Blood-Glucose Meter,Continuo us (Dexcom G6 Network Support Analyst) by [facility].(Non-Drug; Combo Route) route. 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 Gender Identity Not on file Sexual Orientation [...] 157.5 cm (5' 2) 06/14/2022 1:34 PM LAY OUT MAKER Body Mass Index 47.88 06/14/2022 1:34 PM LAY OUT MAKER Plan of Treatment Upcoming Encounters Date Type Department Care Team (Late st Contact Info) Description 10/16/2025 10:00 AM CDT Office Visit [facility] Oncology and Hematology - [place] [address] [facility] [address] [place] [address] Mau Lee MD [address] [place] [address] Health Maintenance Due Date Last [...] 03/05 OSTEOPOROSIS SCREENING 2019 INFLUENZA VACCINE (#1) 2025 05/02/2017, 2015 COVID-19 Vaccine (2 - season) 2025 Insurance AET[employer] O MCR [facility] Address: [facility] [id number] [place] [address] Care Teams Arts Manager Relationship Specialty Start Date End Date Arin Knapp MD [address] [place] [id number] PCP - General Family Practice 06/14/22
--- OUTSIDE RECORDS SUMMARY | 2025-04-01 11:48 | XMS_ITS | Clinical Summary ---
Author Organization [facility] Address [address] [place] [id number] Care Team Providers Care Relief Pharmacist Name Role Phone Arin Knapp MD Primary [...] (two) times a day 08/19/19 21 Active vyucrlxdl-YH-WO- acetaminoph-GG 5-325-200 mg (day-night) tablets, sequential Take by mouth Activ e LEVEMIR 100 unit/mL (3 mL) pen for injection 11/02/19 21 Active blood-glucose meter [facility] Active blood glucose diagnostic strip One touch Act pritesh UNABLE TO FIND Touch Delica Plus needles Active losartan (COZAAR) 50 mg tablet 07/22/20 21 Active Euflexxa 10 mg/mL(mw 2.4 -3.6 million) syringe 01/29/20 22 Active cyanocobalamin (Vitamin B-12) 1,000 mcg tabletIndication s:Prevention of Vitamin B12 Deficiency Take 1 tablet (1,000 mcg total) by mouth daily Active blood-glucose meter,continuous (Dexcom G6 Workers Compensation Defense Attorney) misc Activ e vit Z-P-ypbrja-zinc- lutein 226-90-0.8-5 mg capsule Take 1 capsule [...] - 01/01/2025 11:59 PM CDT Hospital Encounter [facility] [address] [place] [address] Mild intermittent asthma without complication; Allergic rhinitis, [...] on file Legal Sex Female 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 Gender Identity Female 10/27/2020 8:24 AM [...] 5 season) 2024 06/15/2021 Influenza Vaccine (#1) 2025 7, 04/16/2016, 04/15/2016, Additional history exists Procedures Procedure Name Priority Date/Time Associated Diagnosis Comments PULMONARY FUNCTION TEST (PFT) Routine 01/01/2025 1:28 PM CDT Mild intermittent asthma without complication Allergic rhinitis, unspecified seasonality, unspecified trigger Chronic cough Pulmonary eosinophilia Multiple pulmonary nodules BMI 50.0-59.9, adult ([facility]) from Last 3 Months Results * Pulmonary Function Test - (01/01/2025 1:28 PM CDT) Pathologist [facility] FVC PRE 2.54 L 01/01/2025 1:20 PM CDT [facility] FEV1 PRE 1.89 L 01/01/2025 1:20 PM CDT [facility] [id number] 74.57 % 01/01/2025 1:20 PM CDT [facility] [id number]% PRE 1.41 L/s 01/01/2025 1:20 PM CDT [facility] PEF PRE 7.08 L/s 01/01/2025 1:20 PM CDT [facility] DLCOc SB 13.59 ml/(min*mm Hg) 01/01/2025 1:20 PM CDT [facility] DLCO/VA PRE 4.48 ml/(min*mm Hg*L) 01/01/2025 1:20 PM CDT [facility] VA 3.04 L 01/01/2025 1:20 PM CDT [facility] TLC PRE 4.83 L 01/01/2025 1:20 PM CDT [facility] VC PRE 2.54 L 01/01/2025 1:20 PM CDT [facility] IC PRE 1.82 L 01/01/2025 1:20 PM CDT [facility] FRC PL PRE 2.97 L 01/01/2025 1:20 PM CDT [facility] ERV PRE 0.68 L 01/01/2025 1:20 PM CDT [facility] RV PRE 2.29 L 01/01/2025 1:20 PM CDT [facility] RAW PRE 3.18 cmH2O*s/L 01/01/2025 1:20 PM CDT [facility] VTG 3.11 L 01/01/2025 1:20 PM CDT [facility] Anatomical Region Laterality Modality PFT 01/01/2025 [...] from Last 3 Months Insurance [facility] [facility] Address: [facility] [id number] [place] [phone] MERGED WITH [facility] MERGED WITH [facility] AETNA [facility] ADV REF MERGED WITH [facility] [employer] MEDICARE Care Teams Relief Pharmacist Relationship Specialty Start Date End Date Arin Knapp MD PCP - General 07/18/20
[2025-04-01 13:09] LABS: Total Protein Urine Random 14 mg/dL; Ur Ttl Prot Creatinine Ratio 0.32 mg/mg (0-0.20)
[2025-04-01 13:24] LABS: Albumin Level 3.9 g/dL (3.5-5.1); Anion Gap 7 mmol/L (4-12); Blood Urea Nitrogen 23 mg/dL (7-17); Calcium 9.4 mg/dL (8.4-10.2); Carbon Dioxide 28 mmol/L (22-30); Chloride 102 mmol/L (98-107); Estimated Glomerular Filt Rate 44; Glucose 131 mg/dL (65-110); Potassium 4.4 mmol/L (3.4-5.0); Sodium 137 mmol/L (137-145)
[2025-04-01 13:33] LABS: Parathyroid Intact 47.9 pg/mL (14.5-75.2)
== END 2025-04-01 11:27 | disposition home or self-care (01) ==
LOC: ANHGOSHLAB 11:27
PROVIDERS: PCP Family Medicine; Visit Provider Internal Medicine Nephrology
DX: I12.9 Hypertensive chronic kidney disease with stage 1 through stage 4 chronic kidney disease, or unspecified chronic kidney disease (principal); E11.22 Type 2 diabetes mellitus with diabetic chronic kidney disease; N18.32 Chronic kidney disease, stage 3b; N25.81 Secondary hyperparathyroidism of renal origin; E55.9 Vitamin D deficiency, unspecified
CPT/HCPCS: 36415; 80069; 82306; 82570; 83970; 84156